=== PATIENT | male | born 1960 | race African-American/Black ===

== ENCOUNTER 2017-04-26 13:55 | Inpatient (IN) | payer OTHER ==
[2017-04-26 15:25] VITALS: BMI 35.2
--- NOTE | 2017-04-26 17:16 | HP ---
Admission [facility] Chief Complaint: "I am here because of my [place]." Patient is here for Rehab for Cocaine. Allergies/Adverse Reactions: Allergies Allergy/AdvReac Type Severity Reaction Status Date / Time chlorpromazine HCl AdvReac Severe stiffness Verified 04/26/17 16:55 [From Thorazine] haloperidol [From Haldol] AdvReac Severe stiffness Verified 04/26/17 16:55 History of Present Illness: Patient is a 56 YO male here for Rehab for Cocaine use. Patient had 1 previous Rehab admission at [facility] approx. 9 years ago. Exam Limitations: No Limitations - Ebola screening Have you traveled outside of the country in the last 21 days: No Have you had contact with anyone from an Ebola affected area: No Have you been sick,other than usual withdrawal symptoms: No Do you have a fever: No - Review of Systems Constitutional: Diaphoresis, Malaise EENT: reports: No Symptoms Reported Respiratory: reports: No Symptoms reported Cardiac: reports: No Symptoms Reported GI: reports: Indigestion (Gas, Heartburn.) : reports: No Symptoms Reported Musculoskeletal: reports: Back Pain, Neck Pain Integumentary: reports: No Symptoms Reported Neuro: reports: No Symptoms reported Endocrine: reports: No Symptoms Reported Hematology: reports: No Symptoms Reported Psychiatric: reports: Judgement Intact, Mood/Affect Appropiate, Orientated x3, Anxious (History of Panic Attacks (None Recent).) Other Systems: Reviewed and Negative Patient History - Patient Medical History Hx Anemia: No Hx Asthma: Yes (Uses albuterol Inhaler.) Hx Chronic Obstructive Pulmonary Disease (COPD): No Hx Cancer: No Hx Cardiac Disorders: Yes (HTN) Hx Congestive Heart Failure: No Hx Hypertension: Yes (On meds.) Hx Hypercholesterolemia: No Hx Pacemaker: No HX Cerebrovascular Accident: No Hx Seizures: No Hx Dementia: No Hx Diabetes: No Hx Gastrointestinal Disorders: Yes (GERD) Hx Liver Disease: No Hx Genitourinary Disorders: No Hx Sexually Transmitted Disorders: No Hx Renal Disease (ESRD): No Hx Thyroid Disease: No Hx Human Immunodeficiency Virus (HIV): No (Last Tested: 02/2017: NEGATIVE.) Hx Hepatitis C: No (Last Tested: 2016: NEGATIVE.) Hx Depression: No Hx Suicide Attempt: No (PATIENT DENIES CURRENT SI / HI.) Hx Bipolar Disorder: Yes (on serouel and trazadone) Hx Schizophrenia: No Other Medical History: DENIES. - Patient Surgical History Past Surgical History: Yes Hx Neurologic Surgery: No Hx Cataract Extraction: No Hx Cardiac Surgery: Yes (Stent placement-2006) Hx Lung Surgery: No Hx Breast Surgery: No Hx Breast Biopsy: No Hx Abdominal Surgery: No Hx Appendectomy: No Hx Cholecystectomy: No Hx Genitourinary Surgery: No Hx Section: No Hx Orthopedic Surgery: Yes (fx left knee at age of 17) Anesthesia Reaction: No - PPD History Previous Implant?: Yes Documented Results: Negative w/o proof Date: 03/14/12 PPD to be Administered?: Yes - Reproductive History Patient is a Female of Child Bearing Age (11 -55 yrs old): No (PATIENT IS MALE.) - Smoking Cessation Smoking history: Current some day smoker Have you smoked in the past 12 months: Yes Aproximately how many cigarettes per day: 4 Cigars Per Day: 0 Hx Chewing Tobacco Use: No Initiated information on smoking cessation: Yes 'Breaking Loose' booklet given: 04/26/17 (GIVEN ON UNIT.) - Substance & Tx. History Hx Alcohol Use: No Hx Substance Use: Yes Substance Use Type: Cocaine Hx Substance Use Treatment: Yes (1 Previous Rehab admission at [facility] approx. 9 years ago.) - Substances Abused Cocaine Route: Smoking Frequency: 1-2 times per week Amount used: $ 2000 Age of first use: 53 Date of Last Use: 04/12/17 Family Disease History - Family Disease History Family History: Denies Admission Physical Exam BHS - Vital Signs Vital Signs: Vital Signs - 24 hr 04/26/17 15:22 Temperature 97.4 F L Pulse Rate 74 Respiratory 20 Rate Blood Pressure 187/105 - Physical General Appearance: Yes: No Apparent Distress, Nourished, Appropriately Dressed HEENTM: Yes: Hearing grossly Normal, Normocephalic, Normal Voice, SHEILA, Pharynx Normal Respiratory: Yes: Chest Non-Tender, Lungs Clear, No Respiratory Distress, No Accessory Muscle Use Neck: Yes: No masses,lesions,Nodules, Supple, Trachea in good position Breast: Yes: Breast Exam Deferred Cardiology: Yes: Regular Rhythm, Regular Rate, S1, S2 Abdominal: Yes: Normal Bowel Sounds, Non Tender, Soft, Protuberent Genitourinary: Yes: Within Normal Limits Back: Yes: Decreased Range of Motion Musculoskeletal: Yes: Gait Steady, Back pain Extremities: Yes: Normal Range of Motion, Non-Tender Neurological: Yes: Fully Oriented, Alert, Normal Mood/Affect, Normal Response Integumentary: Yes: Normal Color, Dry, Warm Lymphatic: Yes: Within Normal Limits - Diagnostic (1) Bipolar disorder Current Visit: Yes Status: Chronic (2) Cocaine dependence Current Visit: Yes Status: Chronic (3) Essential hypertension Current Visit: Yes Status: Chronic (4) Nicotine dependence Current Visit: Yes Status: Chronic (5) History of heart artery stent Current Visit: Yes Status: Chronic Cleared for Admission [facility] - Detox or Rehab Claeared for Rehab Admission: Yes [facility] Breath Alcohol Content Breath Alcohol Content: 0 Urine Drug Screen - Results Drug Screen Negative: Yes Inpatient Rehab Admission - Initial Determination Are CD services needed?: Yes Free of communicable disease: Yes Not in need of hospitalization: Yes - Rehab Admission Criteria Previous failed treatment: Yes Comorbidities: Yes Patient is meeting Inpatient Rehab admission criteria:: Yes
[2017-04-26] MEDS ORDERED: guaiFENesin/D-METHORPHAN HB 10 ML UNIT-DOSE CUPS PO PRN (17:57)
[2017-04-26] MEDS ORDERED: MAGNESIUM HYDROX 2400MG/30ML ORAL SUSPENSION 30 ML CUP PO PRN (17:57)
[2017-04-26] MEDS ORDERED: LOPERAMIDE HCL 2 MG CAPSULE PO PRN (17:57)
[2017-04-26] MEDS ORDERED: P-EPHED 60MG/TRIPROLIDI 2.5MG TABLET PO PRN (17:57)
[2017-04-26] MEDS ORDERED: NICOTINE POLACRILEX 2 MG GUM BUC PRN (17:57)
[2017-04-26] MEDS ORDERED: MAGNESIUM CITRATE 300 ML BOTTLE PO PRN (17:57)
[2017-04-26] MEDS ORDERED: hydrOXYzine PAMOATE 50 MG CAPSULE (FP) PO PRN (17:57)
[2017-04-26] MEDS ORDERED: ALBUTEROL SO4 18 GM HFA INHALER IH PRN (18:10)
[2017-04-26] MEDS: LISINOPRIL 20 MG TABLET (FP) PO SCH (19:41)
[2017-04-26] MEDS: amLODIPine BESYLATE 5 MG TABLET (FP) PO SCH (19:41)
[2017-04-26] MEDS ORDERED: TUBERCULIN PPD 5 TU/0.1ML VIAL ID ONE (19:41)
[2017-04-26] MEDS: NICOTINE 14 MG/24 HOURS TOPICAL PATCH TD SCH (19:46)
[2017-04-26] MEDS ORDERED: diphenhydrAMINE HCL 50 MG CAPSULE PO PRN (22:00)
[2017-04-26 23:33] LABS: URINE APPEARANCE CLEAR; URINE BILIRUBIN NEGATIVE (NEGATIVE); URINE BLOOD NEGATIVE (NEGATIVE); URINE COLOR YELLOW; URINE GLUCOSE (UA) NEGATIVE (NEGATIVE); URINE KETONE NEGATIVE (NEGATIVE); URINE LEUK ESTERASE NEGATIVE (NEGATIVE); URINE NITRITE NEGATIVE (NEGATIVE); URINE PROTEIN NEGATIVE (NEGATIVE); URINE UROBILINOGEN NEGATIVE mg/dL (0.2-1.0)
[2017-04-26] MEDS: THIAMINE HCL 100 MG TABLET (FP) PO SCH (23:50)
[2017-04-27] MEDS: PRENATAL VITAMINS W/ FOLIC ACID TABLET (FP) PO SCH (09:28)
[2017-04-27] MEDS: PANTOPRAZOLE 40 MG TABLET (FP) PO SCH (09:28)
[2017-04-27] MEDS: NICOTINE 14 MG/24 HOURS TOPICAL PATCH TD SCH (09:28)
[2017-04-27] MEDS: HYDROCHLOROTHIAZIDE 25 MG TABLET (FP) PO SCH (09:28)
[2017-04-27] MEDS: LISINOPRIL 20 MG TABLET (FP) PO SCH (09:28)
[2017-04-27] MEDS: ASPIRIN 81 MG CHEWABLE TABLETS PO SCH (09:28)
[2017-04-27] MEDS: amLODIPine BESYLATE 5 MG TABLET (FP) PO SCH (09:28)
[2017-04-27 10:28] LABS: ALBUMIN 3.1 g/dl (3.4-5.0); ANION GAP 4 (8-16); CALCIUM 8.4 mg/dL (8.5-10.1); CO2 29 mmol/L (21-32); GLUCOSE,RANDOM 98 mg/dL (74-106)
[2017-04-27 10:32] LABS: ALK PHOS 89 U/L (45-117); BILIRUBIN,TOTAL 0.5 mg/dL (0.2-1.0); CREATININE 0.8 mg/dL (0.7-1.3); SGOT/AST 17 U/L (15-37); SGPT/ALT 25 U/L (12-78)
--- NOTE | 2017-04-27 13:04 | EKG ---
Test Reason : Blood Pressure : / mmHG Vent. Rate : 064 BPM Atrial Rate : 064 BPM P-R Int : 170 ms QRS Dur : 084 ms QT Int : 412 ms P-R-T Axes : 038 026 034 degrees QTc Int : 425 ms SINUS RHYTHM WITH MARKED SINUS ARRHYTHMIA SEPTAL INFARCT , AGE UNDETERMINED ABNORMAL ECG NO PREVIOUS ECGS AVAILABLE Confirmed by KOMAL JOY MD ([id number]) on 04/27/2017 1:04:36 PM Referred By: Confirmed By:KOMAL JOY MD
--- NOTE | 2017-04-27 13:04 | EKG ---
Test Reason : Blood Pressure : / mmHG Vent. Rate : 078 BPM Atrial Rate : 078 BPM P-R Int : 172 ms QRS Dur : 080 ms QT Int : 396 ms P-R-T Axes : 032 027 038 degrees QTc Int : 451 ms SINUS RHYTHM WITH MARKED SINUS ARRHYTHMIA MINIMAL VOLTAGE CRITERIA FOR LVH, MAY BE NORMAL VARIANT NON-SPECIFIC INTRA-VENTRICULAR CONDUCTION DELAY ABNORMAL ECG WHEN COMPARED WITH ECG OF 27-APR-2017 05:55, NO SIGNIFICANT CHANGE WAS FOUND Confirmed by KOMAL JOY MD ([id number]) on 04/27/2017 1:04:10 PM Referred By: Confirmed By:KOMAL JOY MD
[2017-04-27 20:12] LABS: MEAN CELL VOLUME 88.4 fl (80-96); PLATELET COUNT 179 K/MM3 (134-434); WHITE BLOOD COUNT 3.3 K/mm3 (4.0-10.0)
[2017-04-27] MEDS: THIAMINE HCL 100 MG TABLET (FP) PO SCH (21:16)
[2017-04-27] MEDS: diphenhydrAMINE HCL 50 MG CAPSULE PO PRN (21:19)
[2017-04-27] MEDS: MENTHOL/PHENOL 1 EACH UD MM PRN (21:19)
[2017-04-28] MEDS: ASPIRIN 81 MG CHEWABLE TABLETS PO SCH (09:39)
[2017-04-28] MEDS: PRENATAL VITAMINS W/ FOLIC ACID TABLET (FP) PO SCH (09:39)
[2017-04-28] MEDS: HYDROCHLOROTHIAZIDE 25 MG TABLET (FP) PO SCH (09:39)
[2017-04-28] MEDS: PANTOPRAZOLE 40 MG TABLET (FP) PO SCH (09:39)
[2017-04-28] MEDS: LISINOPRIL 20 MG TABLET (FP) PO SCH (09:39)
[2017-04-28] MEDS: amLODIPine BESYLATE 5 MG TABLET (FP) PO SCH (09:39)
[2017-04-28] MEDS: NICOTINE 14 MG/24 HOURS TOPICAL PATCH TD SCH (09:40)
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
[2017-04-28] MEDS ORDERED: PT OWN MED DRAWER 7, Y5N ONE (19:26)
[2017-04-28] MEDS: THIAMINE HCL 100 MG TABLET (FP) PO SCH (21:12)
[2017-04-28] MEDS: MIRTAZAPINE 30 MG TABLET (FP) PO SCH (21:13)
[2017-04-28] MEDS: BENZTROPINE MESYLATE 1 MG TABLET (FP) PO SCH (21:13)
[2017-04-28] MEDS: diphenhydrAMINE HCL 50 MG CAPSULE PO PRN (21:13)
[2017-04-28] MEDS: risperiDONE 2 MG TABLET PO SCH (21:14)
[2017-04-29] MEDS: HYDROCHLOROTHIAZIDE 25 MG TABLET (FP) PO SCH (10:17)
[2017-04-29] MEDS: PRENATAL VITAMINS W/ FOLIC ACID TABLET (FP) PO SCH (10:17)
[2017-04-29] MEDS: PANTOPRAZOLE 40 MG TABLET (FP) PO SCH (10:17)
[2017-04-29] MEDS: BENZTROPINE MESYLATE 1 MG TABLET (FP) PO SCH ×2 (10:17→21:08)
[2017-04-29] MEDS: ASPIRIN 81 MG CHEWABLE TABLETS PO SCH (10:17)
[2017-04-29] MEDS: LISINOPRIL 20 MG TABLET (FP) PO SCH (10:17)
[2017-04-29] MEDS: amLODIPine BESYLATE 5 MG TABLET (FP) PO SCH (10:17)
[2017-04-29] MEDS: NICOTINE 14 MG/24 HOURS TOPICAL PATCH TD SCH (10:18)
[2017-04-29] MEDS: MAG HYDROX/AL HYDROX/SIMETH 30 ML UNIT-DOSE CUP PO PRN (12:23)
[2017-04-29] MEDS: IBUPROFEN 400 MG TABLET (FP) PO PRN ×2 (15:17→23:15)
[2017-04-29] MEDS: ACETAMINOPHEN 325 MG TABLET (FP) PO PRN (19:38)
[2017-04-29] MEDS: diphenhydrAMINE HCL 50 MG CAPSULE PO PRN (21:08)
[2017-04-29] MEDS: MIRTAZAPINE 30 MG TABLET (FP) PO SCH (21:08)
[2017-04-29] MEDS: risperiDONE 2 MG TABLET PO SCH (21:08)
[2017-04-29] MEDS: THIAMINE HCL 100 MG TABLET (FP) PO SCH (21:08)
[2017-04-30] MEDS: PANTOPRAZOLE 40 MG TABLET (FP) PO SCH (09:48)
[2017-04-30] MEDS: PRENATAL VITAMINS W/ FOLIC ACID TABLET (FP) PO SCH (09:48)
[2017-04-30] MEDS: HYDROCHLOROTHIAZIDE 25 MG TABLET (FP) PO SCH (09:48)
[2017-04-30] MEDS: ASPIRIN 81 MG CHEWABLE TABLETS PO SCH (09:48)
[2017-04-30] MEDS: LISINOPRIL 20 MG TABLET (FP) PO SCH (09:48)
[2017-04-30] MEDS: BENZTROPINE MESYLATE 1 MG TABLET (FP) PO SCH ×2 (09:48→21:26)
[2017-04-30] MEDS: amLODIPine BESYLATE 5 MG TABLET (FP) PO SCH (09:50)
[2017-04-30] MEDS: IBUPROFEN 400 MG TABLET (FP) PO PRN ×2 (10:25→21:28)
[2017-04-30] MEDS: NICOTINE 14 MG/24 HOURS TOPICAL PATCH TD SCH (10:39)
[2017-04-30] MEDS: THIAMINE HCL 100 MG TABLET (FP) PO SCH (21:25)
[2017-04-30] MEDS: diphenhydrAMINE HCL 50 MG CAPSULE PO PRN (21:25)
[2017-04-30] MEDS: risperiDONE 2 MG TABLET PO SCH (21:26)
[2017-04-30] MEDS: MIRTAZAPINE 30 MG TABLET (FP) PO SCH (21:26)
[2017-05-01] MEDS: PRENATAL VITAMINS W/ FOLIC ACID TABLET (FP) PO SCH (09:36)
[2017-05-01] MEDS: LISINOPRIL 20 MG TABLET (FP) PO SCH (09:36)
[2017-05-01] MEDS: amLODIPine BESYLATE 5 MG TABLET (FP) PO SCH (09:36)
[2017-05-01] MEDS: HYDROCHLOROTHIAZIDE 25 MG TABLET (FP) PO SCH (09:36)
[2017-05-01] MEDS: PANTOPRAZOLE 40 MG TABLET (FP) PO SCH (09:36)
[2017-05-01] MEDS: ASPIRIN 81 MG CHEWABLE TABLETS PO SCH (09:36)
[2017-05-01] MEDS: BENZTROPINE MESYLATE 1 MG TABLET (FP) PO SCH ×2 (09:36→21:19)
[2017-05-01] MEDS: IBUPROFEN 400 MG TABLET (FP) PO PRN ×2 (09:37→20:05)
[2017-05-01] MEDS: NICOTINE 14 MG/24 HOURS TOPICAL PATCH TD SCH (09:39)
[2017-05-01] MEDS: risperiDONE 2 MG TABLET PO SCH (21:19)
[2017-05-01] MEDS: THIAMINE HCL 100 MG TABLET (FP) PO SCH (21:19)
[2017-05-01] MEDS: diphenhydrAMINE HCL 50 MG CAPSULE PO PRN (21:19)
[2017-05-01] MEDS: ACETAMINOPHEN 325 MG TABLET (FP) PO PRN (21:20)
[2017-05-01] MEDS: MIRTAZAPINE 30 MG TABLET (FP) PO SCH (21:22)
[2017-05-02] MEDS: HYDROCHLOROTHIAZIDE 25 MG TABLET (FP) PO SCH (09:23)
[2017-05-02] MEDS: amLODIPine BESYLATE 5 MG TABLET (FP) PO SCH (09:23)
[2017-05-02] MEDS: LISINOPRIL 20 MG TABLET (FP) PO SCH (09:23)
[2017-05-02] MEDS: BENZTROPINE MESYLATE 1 MG TABLET (FP) PO SCH ×2 (09:23→21:23)
[2017-05-02] MEDS: IBUPROFEN 400 MG TABLET (FP) PO PRN (09:23)
[2017-05-02] MEDS: PRENATAL VITAMINS W/ FOLIC ACID TABLET (FP) PO SCH (09:23)
[2017-05-02] MEDS: ASPIRIN 81 MG CHEWABLE TABLETS PO SCH (09:23)
[2017-05-02] MEDS: NICOTINE 14 MG/24 HOURS TOPICAL PATCH TD SCH (09:25)
[2017-05-02] MEDS: PANTOPRAZOLE 40 MG TABLET (FP) PO SCH (10:40)
[2017-05-02] MEDS ORDERED: ALBUTEROL SO4 2.5/IPRATROPIUM 0.5 INH SOL 3 ML VIAL.NEB. NEB ONE (15:52)
[2017-05-02] MEDS ORDERED: LIDOCAINE HCL 4% TOPICAL SOLN (50 ML/BOTTLE) MM ONE (15:54)
--- NOTE | 2017-05-02 15:58 | PN ---
[facility] Progress Note (SOAP) Subjective: c/o wheezing and tooth pain because filling fell out, no infection or pus reported Objective: 05/02/17 15:57 Vital Signs - 24 hr 05/02/17 05/02/17 05/02/17 00:30 03:30 06:53 Temperature 97.5 F L Pulse Rate 72 Respiratory 18 18 18 Rate Blood Pressure 162/97 05/02/17 05/02/17 07:32 10:00 Temperature Pulse Rate 70 79 Respiratory 18 Rate Blood Pressure 144/93 143/84 Laboratory Tests 04/26/17 04/27/17 04/27/17 23:00 08:00 08:00 WBC 3.3 L RBC 4.20 Hgb 12.6 D Hct 37.1 MCV 88.4 MCH 30.0 MCHC 34.0 RDW 17.0 H Plt Count 179 MPV 9.0 Sodium 139 Potassium 3.8 Chloride 106 Carbon Dioxide 29 Anion Gap 4 L BUN 13 Creatinine 0.8 Creat Clearance w eGFR > 60 Random Glucose 98 Calcium 8.4 L Total Bilirubin 0.5 D AST 17 ALT 25 Alkaline Phosphatase 89 Total Protein 6.0 L Albumin 3.1 L Urine Color Yellow Urine Appearance Clear Urine pH 6.0 Ur Specific [place] 1.020 Urine Protein Negative Urine Glucose (UA) Negative Urine Ketones Negative Urine Blood Negative Urine Nitrite Negative Urine Bilirubin Negative Urine Urobilinogen Negative RPR Titer 04/27/17 08:00 WBC RBC Hgb Hct MCV MCH MCHC RDW Plt Count MPV Sodium Potassium Chloride Carbon Dioxide Anion Gap BUN Creatinine Creat Clearance w eGFR Random Glucose Calcium Total Bilirubin AST ALT Alkaline Phosphatase Total Protein Albumin Urine Color Urine Appearance Urine pH Ur Specific [place] Urine Protein Urine Glucose (UA) Urine Ketones Urine Blood Urine Nitrite Urine Bilirubin Urine Urobilinogen RPR Titer Nonreactive Assessment: 05/02/17 15:57 acute asthma, toothache Plan: albhterol inhaler, duoneb scheduled,naprosyn scheduled - patient may refuse
[2017-05-02] MEDS ORDERED: LIDOCAINE VISCOUS 2% ORAL/TOP 20 ML UNIT-DOSE CUP MM ONE (17:15)
[2017-05-02] MEDS: ALBUTEROL SO4 2.5/IPRATROPIUM 0.5 INH SOL 3 ML VIAL.NEB. NEB SCH ×2 (18:21→23:32)
[2017-05-02] MEDS: THIAMINE HCL 100 MG TABLET (FP) PO SCH (21:21)
[2017-05-02] MEDS: AMMONIUM LACTATE 12% LOTION 225 GM BOTTLE TP PRN (21:21)
[2017-05-02] MEDS: MIRTAZAPINE 30 MG TABLET (FP) PO SCH (21:23)
[2017-05-02] MEDS: NAPROXEN 500 MG TABLET (FP) PO SCH (21:23)
[2017-05-02] MEDS: risperiDONE 2 MG TABLET PO SCH (21:23)
[2017-05-02] MEDS: diphenhydrAMINE HCL 50 MG CAPSULE PO PRN (21:25)
[2017-05-03] MEDS: ALBUTEROL SO4 2.5/IPRATROPIUM 0.5 INH SOL 3 ML VIAL.NEB. NEB SCH ×3 (06:21→16:59)
[2017-05-03] MEDS: NAPROXEN 500 MG TABLET (FP) PO SCH ×2 (09:48→21:49)
[2017-05-03] MEDS: ASPIRIN 81 MG CHEWABLE TABLETS PO SCH (09:49)
[2017-05-03] MEDS: LISINOPRIL 20 MG TABLET (FP) PO SCH (09:49)
[2017-05-03] MEDS: PANTOPRAZOLE 40 MG TABLET (FP) PO SCH (09:49)
[2017-05-03] MEDS: PRENATAL VITAMINS W/ FOLIC ACID TABLET (FP) PO SCH (09:49)
[2017-05-03] MEDS: BENZTROPINE MESYLATE 1 MG TABLET (FP) PO SCH ×2 (09:49→21:49)
[2017-05-03] MEDS: HYDROCHLOROTHIAZIDE 25 MG TABLET (FP) PO SCH (09:49)
[2017-05-03] MEDS: amLODIPine BESYLATE 5 MG TABLET (FP) PO SCH (09:49)
[2017-05-03] MEDS: NICOTINE 14 MG/24 HOURS TOPICAL PATCH TD SCH (10:22)
[2017-05-03] MEDS ORDERED: COLLOIDAL OATMEAL 1 BAR EACH TP PRN (15:16)
[2017-05-03] MEDS: COLLOIDAL OATMEAL 1 BAR EACH TP PRN (21:48)
[2017-05-03] MEDS: ACETAMINOPHEN 325 MG TABLET (FP) PO PRN (21:48)
[2017-05-03] MEDS: MIRTAZAPINE 30 MG TABLET (FP) PO SCH (21:49)
[2017-05-03] MEDS: diphenhydrAMINE HCL 50 MG CAPSULE PO PRN (21:49)
[2017-05-03] MEDS: THIAMINE HCL 100 MG TABLET (FP) PO SCH (21:49)
[2017-05-03] MEDS: risperiDONE 2 MG TABLET PO SCH (21:50)
[2017-05-04] MEDS: ALBUTEROL SO4 2.5/IPRATROPIUM 0.5 INH SOL 3 ML VIAL.NEB. NEB SCH ×3 (00:07→18:00)
[2017-05-04] MEDS: LISINOPRIL 20 MG TABLET (FP) PO SCH (09:35)
[2017-05-04] MEDS: amLODIPine BESYLATE 5 MG TABLET (FP) PO SCH (09:35)
[2017-05-04] MEDS: PRENATAL VITAMINS W/ FOLIC ACID TABLET (FP) PO SCH (09:35)
[2017-05-04] MEDS: ASPIRIN 81 MG CHEWABLE TABLETS PO SCH (09:35)
[2017-05-04] MEDS: BENZTROPINE MESYLATE 1 MG TABLET (FP) PO SCH ×2 (09:35→21:22)
[2017-05-04] MEDS: HYDROCHLOROTHIAZIDE 25 MG TABLET (FP) PO SCH (09:35)
[2017-05-04] MEDS: NICOTINE 14 MG/24 HOURS TOPICAL PATCH TD SCH (09:36)
[2017-05-04] MEDS: PANTOPRAZOLE 40 MG TABLET (FP) PO SCH (09:36)
[2017-05-04] MEDS: NAPROXEN 500 MG TABLET (FP) PO SCH ×2 (09:36→21:23)
[2017-05-04] MEDS: MAG HYDROX/AL HYDROX/SIMETH 30 ML UNIT-DOSE CUP PO PRN (12:16)
[2017-05-04] MEDS: MIRTAZAPINE 30 MG TABLET (FP) PO SCH (21:22)
[2017-05-04] MEDS: THIAMINE HCL 100 MG TABLET (FP) PO SCH (21:22)
[2017-05-04] MEDS: risperiDONE 2 MG TABLET PO SCH (21:22)
[2017-05-04] MEDS: diphenhydrAMINE HCL 50 MG CAPSULE PO PRN (21:23)
[2017-05-05] MEDS: ASPIRIN 81 MG CHEWABLE TABLETS PO SCH (09:27)
[2017-05-05] MEDS: PANTOPRAZOLE 40 MG TABLET (FP) PO SCH (09:27)
[2017-05-05] MEDS: PRENATAL VITAMINS W/ FOLIC ACID TABLET (FP) PO SCH (09:28)
[2017-05-05] MEDS: NAPROXEN 500 MG TABLET (FP) PO SCH ×2 (09:28→21:41)
[2017-05-05] MEDS: NICOTINE 14 MG/24 HOURS TOPICAL PATCH TD SCH (09:28)
[2017-05-05] MEDS: HYDROCHLOROTHIAZIDE 25 MG TABLET (FP) PO SCH (09:28)
[2017-05-05] MEDS: BENZTROPINE MESYLATE 1 MG TABLET (FP) PO SCH ×2 (09:28→21:41)
[2017-05-05] MEDS: LISINOPRIL 20 MG TABLET (FP) PO SCH (09:28)
[2017-05-05] MEDS: amLODIPine BESYLATE 5 MG TABLET (FP) PO SCH (09:28)
[2017-05-05] MEDS: ALBUTEROL SO4 2.5/IPRATROPIUM 0.5 INH SOL 3 ML VIAL.NEB. NEB SCH ×3 (12:43→18:41)
[2017-05-05] MEDS: MENTHOL/PHENOL 1 EACH UD MM PRN (14:49)
[2017-05-05] MEDS: THIAMINE HCL 100 MG TABLET (FP) PO SCH (21:41)
[2017-05-05] MEDS: MIRTAZAPINE 30 MG TABLET (FP) PO SCH (21:41)
[2017-05-05] MEDS: risperiDONE 2 MG TABLET PO SCH (21:41)
[2017-05-05] MEDS: diphenhydrAMINE HCL 50 MG CAPSULE PO PRN (21:42)
[2017-05-06] MEDS: ACETAMINOPHEN 325 MG TABLET (FP) PO PRN (07:43)
[2017-05-06] MEDS: NAPROXEN 500 MG TABLET (FP) PO SCH ×2 (09:33→21:22)
[2017-05-06] MEDS: ASPIRIN 81 MG CHEWABLE TABLETS PO SCH (09:33)
[2017-05-06] MEDS: PRENATAL VITAMINS W/ FOLIC ACID TABLET (FP) PO SCH (09:33)
[2017-05-06] MEDS: amLODIPine BESYLATE 5 MG TABLET (FP) PO SCH (09:33)
[2017-05-06] MEDS: BENZTROPINE MESYLATE 1 MG TABLET (FP) PO SCH ×2 (09:33→21:22)
[2017-05-06] MEDS: PANTOPRAZOLE 40 MG TABLET (FP) PO SCH (09:33)
[2017-05-06] MEDS: HYDROCHLOROTHIAZIDE 25 MG TABLET (FP) PO SCH (09:33)
[2017-05-06] MEDS: LISINOPRIL 20 MG TABLET (FP) PO SCH (09:33)
[2017-05-06] MEDS: NICOTINE 14 MG/24 HOURS TOPICAL PATCH TD SCH (09:35)
[2017-05-06] MEDS: ALBUTEROL SO4 2.5/IPRATROPIUM 0.5 INH SOL 3 ML VIAL.NEB. NEB SCH ×3 (11:58→18:30)
[2017-05-06] MEDS: THIAMINE HCL 100 MG TABLET (FP) PO SCH (21:22)
[2017-05-06] MEDS: risperiDONE 2 MG TABLET PO SCH (21:22)
[2017-05-06] MEDS: diphenhydrAMINE HCL 50 MG CAPSULE PO PRN (21:22)
[2017-05-06] MEDS: MIRTAZAPINE 30 MG TABLET (FP) PO SCH (21:22)
[2017-05-06] MEDS: AMMONIUM LACTATE 12% LOTION 225 GM BOTTLE TP PRN (21:24)
[2017-05-06] MEDS: COLLOIDAL OATMEAL 1 BAR EACH TP PRN (21:25)
[2017-05-07] MEDS: NICOTINE 14 MG/24 HOURS TOPICAL PATCH TD SCH (09:43)
[2017-05-07] MEDS: PRENATAL VITAMINS W/ FOLIC ACID TABLET (FP) PO SCH (09:43)
[2017-05-07] MEDS: HYDROCHLOROTHIAZIDE 25 MG TABLET (FP) PO SCH (09:43)
[2017-05-07] MEDS: PANTOPRAZOLE 40 MG TABLET (FP) PO SCH (09:43)
[2017-05-07] MEDS: NAPROXEN 500 MG TABLET (FP) PO SCH ×2 (09:43→22:29)
[2017-05-07] MEDS: LISINOPRIL 20 MG TABLET (FP) PO SCH (09:43)
[2017-05-07] MEDS: BENZTROPINE MESYLATE 1 MG TABLET (FP) PO SCH ×2 (09:43→22:29)
[2017-05-07] MEDS: amLODIPine BESYLATE 5 MG TABLET (FP) PO SCH (09:43)
[2017-05-07] MEDS: ASPIRIN 81 MG CHEWABLE TABLETS PO SCH (09:43)
[2017-05-07] MEDS: ALBUTEROL SO4 2.5/IPRATROPIUM 0.5 INH SOL 3 ML VIAL.NEB. NEB SCH (13:00)
[2017-05-07] MEDS: risperiDONE 2 MG TABLET PO SCH (22:29)
[2017-05-07] MEDS: MIRTAZAPINE 30 MG TABLET (FP) PO SCH (22:29)
[2017-05-07] MEDS: THIAMINE HCL 100 MG TABLET (FP) PO SCH (22:29)
[2017-05-08] MEDS: amLODIPine BESYLATE 5 MG TABLET (FP) PO SCH (09:38)
[2017-05-08] MEDS: PRENATAL VITAMINS W/ FOLIC ACID TABLET (FP) PO SCH (09:38)
[2017-05-08] MEDS: ASPIRIN 81 MG CHEWABLE TABLETS PO SCH (09:38)
[2017-05-08] MEDS: BENZTROPINE MESYLATE 1 MG TABLET (FP) PO SCH ×2 (09:38→21:15)
[2017-05-08] MEDS: LISINOPRIL 20 MG TABLET (FP) PO SCH (09:38)
[2017-05-08] MEDS: PANTOPRAZOLE 40 MG TABLET (FP) PO SCH (09:38)
[2017-05-08] MEDS: HYDROCHLOROTHIAZIDE 25 MG TABLET (FP) PO SCH (09:39)
[2017-05-08] MEDS: NAPROXEN 500 MG TABLET (FP) PO SCH ×2 (09:40→21:17)
[2017-05-08] MEDS: NICOTINE 14 MG/24 HOURS TOPICAL PATCH TD SCH (09:40)
[2017-05-08] MEDS: ALBUTEROL SO4 2.5/IPRATROPIUM 0.5 INH SOL 3 ML VIAL.NEB. NEB SCH ×2 (11:02→21:17)
[2017-05-08] MEDS: ALBUTEROL SO4 18 GM HFA INHALER IH PRN (15:59)
[2017-05-08] MEDS: AMMONIUM LACTATE 12% LOTION 225 GM BOTTLE TP PRN (21:14)
[2017-05-08] MEDS: THIAMINE HCL 100 MG TABLET (FP) PO SCH (21:15)
[2017-05-08] MEDS: risperiDONE 2 MG TABLET PO SCH (21:15)
[2017-05-08] MEDS: MIRTAZAPINE 30 MG TABLET (FP) PO SCH (21:16)
[2017-05-08] MEDS: diphenhydrAMINE HCL 50 MG CAPSULE PO PRN (21:16)
[2017-05-09] MEDS: NAPROXEN 500 MG TABLET (FP) PO SCH ×2 (09:40→21:17)
[2017-05-09] MEDS: PRENATAL VITAMINS W/ FOLIC ACID TABLET (FP) PO SCH (09:40)
[2017-05-09] MEDS: HYDROCHLOROTHIAZIDE 25 MG TABLET (FP) PO SCH (09:40)
[2017-05-09] MEDS: BENZTROPINE MESYLATE 1 MG TABLET (FP) PO SCH ×2 (09:40→21:17)
[2017-05-09] MEDS: ASPIRIN 81 MG CHEWABLE TABLETS PO SCH (09:40)
[2017-05-09] MEDS: amLODIPine BESYLATE 5 MG TABLET (FP) PO SCH (09:40)
[2017-05-09] MEDS: LISINOPRIL 20 MG TABLET (FP) PO SCH (09:40)
[2017-05-09] MEDS: PANTOPRAZOLE 40 MG TABLET (FP) PO SCH (09:40)
[2017-05-09] MEDS: COLLOIDAL OATMEAL 1 BAR EACH TP PRN (09:42)
[2017-05-09] MEDS: NICOTINE 14 MG/24 HOURS TOPICAL PATCH TD SCH (09:43)
[2017-05-09] MEDS: risperiDONE 2 MG TABLET PO SCH (21:17)
[2017-05-09] MEDS: THIAMINE HCL 100 MG TABLET (FP) PO SCH (21:17)
[2017-05-09] MEDS: MIRTAZAPINE 30 MG TABLET (FP) PO SCH (21:17)
[2017-05-09] MEDS: diphenhydrAMINE HCL 50 MG CAPSULE PO PRN (21:19)
[2017-05-10] MEDS: ALBUTEROL SO4 2.5/IPRATROPIUM 0.5 INH SOL 3 ML VIAL.NEB. NEB SCH ×4 (04:27→21:15)
[2017-05-10] MEDS: PRENATAL VITAMINS W/ FOLIC ACID TABLET (FP) PO SCH (09:35)
[2017-05-10] MEDS: amLODIPine BESYLATE 5 MG TABLET (FP) PO SCH (09:35)
[2017-05-10] MEDS: ASPIRIN 81 MG CHEWABLE TABLETS PO SCH (09:35)
[2017-05-10] MEDS: HYDROCHLOROTHIAZIDE 25 MG TABLET (FP) PO SCH (09:35)
[2017-05-10] MEDS: LISINOPRIL 20 MG TABLET (FP) PO SCH (09:35)
[2017-05-10] MEDS: PANTOPRAZOLE 40 MG TABLET (FP) PO SCH (09:35)
[2017-05-10] MEDS: NAPROXEN 500 MG TABLET (FP) PO SCH ×2 (09:35→21:14)
[2017-05-10] MEDS: BENZTROPINE MESYLATE 1 MG TABLET (FP) PO SCH ×2 (09:35→21:14)
[2017-05-10] MEDS: ALBUTEROL SO4 18 GM HFA INHALER IH PRN (09:36)
[2017-05-10] MEDS: NICOTINE 14 MG/24 HOURS TOPICAL PATCH TD SCH (10:19)
[2017-05-10] MEDS: THIAMINE HCL 100 MG TABLET (FP) PO SCH (21:14)
[2017-05-10] MEDS: diphenhydrAMINE HCL 50 MG CAPSULE PO PRN (21:14)
[2017-05-10] MEDS: risperiDONE 2 MG TABLET PO SCH (21:14)
[2017-05-10] MEDS: MIRTAZAPINE 30 MG TABLET (FP) PO SCH (21:14)
[2017-05-11] MEDS: ASPIRIN 81 MG CHEWABLE TABLETS PO SCH (09:22)
[2017-05-11] MEDS: PRENATAL VITAMINS W/ FOLIC ACID TABLET (FP) PO SCH (09:22)
[2017-05-11] MEDS: PANTOPRAZOLE 40 MG TABLET (FP) PO SCH (09:23)
[2017-05-11] MEDS: BENZTROPINE MESYLATE 1 MG TABLET (FP) PO SCH ×2 (09:23→21:33)
[2017-05-11] MEDS: NAPROXEN 500 MG TABLET (FP) PO SCH ×2 (09:23→21:33)
[2017-05-11] MEDS: HYDROCHLOROTHIAZIDE 25 MG TABLET (FP) PO SCH (09:23)
[2017-05-11] MEDS: amLODIPine BESYLATE 5 MG TABLET (FP) PO SCH (09:23)
[2017-05-11] MEDS: LISINOPRIL 20 MG TABLET (FP) PO SCH (09:23)
[2017-05-11] MEDS: ALBUTEROL SO4 18 GM HFA INHALER IH PRN (09:24)
[2017-05-11] MEDS: NICOTINE 14 MG/24 HOURS TOPICAL PATCH TD SCH (10:20)
[2017-05-11] MEDS: THIAMINE HCL 100 MG TABLET (FP) PO SCH (21:33)
[2017-05-11] MEDS: risperiDONE 2 MG TABLET PO SCH (21:33)
[2017-05-11] MEDS: MIRTAZAPINE 30 MG TABLET (FP) PO SCH (21:33)
[2017-05-11] MEDS: diphenhydrAMINE HCL 50 MG CAPSULE PO PRN (21:33)
[2017-05-11] MEDS: MAG HYDROX/AL HYDROX/SIMETH 30 ML UNIT-DOSE CUP PO PRN (23:32)
[2017-05-12] MEDS: ACETAMINOPHEN 325 MG TABLET (FP) PO PRN (07:19)
[2017-05-12] MEDS: MAG HYDROX/AL HYDROX/SIMETH 30 ML UNIT-DOSE CUP PO PRN (08:57)
[2017-05-12] MEDS: LISINOPRIL 20 MG TABLET (FP) PO SCH (09:36)
[2017-05-12] MEDS: PRENATAL VITAMINS W/ FOLIC ACID TABLET (FP) PO SCH (09:36)
[2017-05-12] MEDS: PANTOPRAZOLE 40 MG TABLET (FP) PO SCH (09:36)
[2017-05-12] MEDS: ASPIRIN 81 MG CHEWABLE TABLETS PO SCH (09:37)
[2017-05-12] MEDS: HYDROCHLOROTHIAZIDE 25 MG TABLET (FP) PO SCH (09:37)
[2017-05-12] MEDS: NAPROXEN 500 MG TABLET (FP) PO SCH ×2 (09:37→21:59)
[2017-05-12] MEDS: NICOTINE 14 MG/24 HOURS TOPICAL PATCH TD SCH (09:37)
[2017-05-12] MEDS: amLODIPine BESYLATE 5 MG TABLET (FP) PO SCH (09:37)
[2017-05-12] MEDS: BENZTROPINE MESYLATE 1 MG TABLET (FP) PO SCH ×2 (09:37→22:00)
[2017-05-12] MEDS: ALBUTEROL SO4 18 GM HFA INHALER IH PRN (09:38)
--- NOTE | 2017-05-12 10:30 | PN ---
[facility] Progress Note Note: patient has pain in the epigastric area earlier now subside stated feel like gas pain acid reflux on examination heent normal neck no jugular vein dilatation scar in mid chest heart normal heart sound lung clear,no wheezing abdomen soft,no distension no pain or tenderness bowel sound active no calf tenderness ekg nsr ,st in v2 no change comparing with 04/27/17 patient has history of mi with coronary by pass surgery 10 years ago impression epigastric pain gerd Vital Signs Temperature 98.4 F 05/12/17 06:50 Pulse Rate 84 05/12/17 06:50 Respiratory Rate 20 05/12/17 06:50 Blood Pressure 156/94 05/12/17 06:50 O2 Sat by Pulse Oximetry (%) patient is lying comfortable,no pain treatment protonix 40mg ponow then daily close monitoring
[2017-05-12] MEDS: ALBUTEROL SO4 2.5/IPRATROPIUM 0.5 INH SOL 3 ML VIAL.NEB. NEB SCH ×3 (15:19→23:47)
[2017-05-12] MEDS: THIAMINE HCL 100 MG TABLET (FP) PO SCH (21:59)
[2017-05-12] MEDS: MIRTAZAPINE 30 MG TABLET (FP) PO SCH (22:00)
[2017-05-12] MEDS: diphenhydrAMINE HCL 50 MG CAPSULE PO PRN (22:00)
[2017-05-12] MEDS: risperiDONE 2 MG TABLET PO SCH (22:00)
[2017-05-13] MEDS: LISINOPRIL 20 MG TABLET (FP) PO SCH (09:35)
[2017-05-13] MEDS: PANTOPRAZOLE 40 MG TABLET (FP) PO SCH (09:35)
[2017-05-13] MEDS: ASPIRIN 81 MG CHEWABLE TABLETS PO SCH (09:35)
[2017-05-13] MEDS: PRENATAL VITAMINS W/ FOLIC ACID TABLET (FP) PO SCH (09:35)
[2017-05-13] MEDS: NICOTINE 14 MG/24 HOURS TOPICAL PATCH TD SCH (09:36)
[2017-05-13] MEDS: BENZTROPINE MESYLATE 1 MG TABLET (FP) PO SCH ×2 (09:36→21:50)
[2017-05-13] MEDS: HYDROCHLOROTHIAZIDE 25 MG TABLET (FP) PO SCH (09:36)
[2017-05-13] MEDS: NAPROXEN 500 MG TABLET (FP) PO SCH ×2 (09:36→21:50)
[2017-05-13] MEDS: amLODIPine BESYLATE 5 MG TABLET (FP) PO SCH (09:36)
[2017-05-13] MEDS: diphenhydrAMINE HCL 50 MG CAPSULE PO PRN (21:50)
[2017-05-13] MEDS: THIAMINE HCL 100 MG TABLET (FP) PO SCH (21:50)
[2017-05-13] MEDS: risperiDONE 2 MG TABLET PO SCH (21:50)
[2017-05-13] MEDS: MIRTAZAPINE 30 MG TABLET (FP) PO SCH (21:50)
--- NOTE | 2017-05-14 07:24 | EKG ---
Test Reason : Blood Pressure : / mmHG Vent. Rate : 080 BPM Atrial Rate : 080 BPM P-R Int : 148 ms QRS Dur : 096 ms QT Int : 406 ms P-R-T Axes : 037 027 042 degrees QTc Int : 468 ms SINUS RHYTHM WITH MARKED SINUS ARRHYTHMIA CANNOT RULE OUT ANTERIOR INFARCT (CITED ON OR BEFORE 12-MAY-2017) ABNORMAL ECG WHEN COMPARED WITH ECG OF 27-APR-2017 09:13, NO SIGNIFICANT CHANGE WAS FOUND Confirmed by LEIF HUMPHREY MD ([id number]) on 05/14/2017 7:23:42 AM Referred By: Confirmed By:LEIF HUMPHREY MD
[2017-05-14] MEDS: ASPIRIN 81 MG CHEWABLE TABLETS PO SCH (09:39)
[2017-05-14] MEDS: PRENATAL VITAMINS W/ FOLIC ACID TABLET (FP) PO SCH (09:40)
[2017-05-14] MEDS: HYDROCHLOROTHIAZIDE 25 MG TABLET (FP) PO SCH (09:40)
[2017-05-14] MEDS: PANTOPRAZOLE 40 MG TABLET (FP) PO SCH (09:40)
[2017-05-14] MEDS: NAPROXEN 500 MG TABLET (FP) PO SCH ×2 (09:40→21:50)
[2017-05-14] MEDS: BENZTROPINE MESYLATE 1 MG TABLET (FP) PO SCH ×2 (09:40→21:50)
[2017-05-14] MEDS: amLODIPine BESYLATE 5 MG TABLET (FP) PO SCH (09:40)
[2017-05-14] MEDS: LISINOPRIL 20 MG TABLET (FP) PO SCH (09:40)
[2017-05-14] MEDS: AMMONIUM LACTATE 12% LOTION 225 GM BOTTLE TP PRN (09:41)
[2017-05-14] MEDS: NICOTINE 14 MG/24 HOURS TOPICAL PATCH TD SCH (09:41)
[2017-05-14] MEDS: COLLOIDAL OATMEAL 1 BAR EACH TP PRN (09:42)
[2017-05-14] MEDS: ALBUTEROL SO4 2.5/IPRATROPIUM 0.5 INH SOL 3 ML VIAL.NEB. NEB SCH (18:30)
[2017-05-14] MEDS: THIAMINE HCL 100 MG TABLET (FP) PO SCH (21:49)
[2017-05-14] MEDS: diphenhydrAMINE HCL 50 MG CAPSULE PO PRN (21:50)
[2017-05-14] MEDS: risperiDONE 2 MG TABLET PO SCH (21:50)
[2017-05-14] MEDS: MIRTAZAPINE 30 MG TABLET (FP) PO SCH (21:50)
[2017-05-15] MEDS: ALBUTEROL SO4 2.5/IPRATROPIUM 0.5 INH SOL 3 ML VIAL.NEB. NEB SCH ×2 (08:35→21:25)
[2017-05-15] MEDS: HYDROCHLOROTHIAZIDE 25 MG TABLET (FP) PO SCH (09:44)
[2017-05-15] MEDS: amLODIPine BESYLATE 5 MG TABLET (FP) PO SCH (09:44)
[2017-05-15] MEDS: ASPIRIN 81 MG CHEWABLE TABLETS PO SCH (09:44)
[2017-05-15] MEDS: LISINOPRIL 20 MG TABLET (FP) PO SCH (09:44)
[2017-05-15] MEDS: NICOTINE 14 MG/24 HOURS TOPICAL PATCH TD SCH (09:44)
[2017-05-15] MEDS: NAPROXEN 500 MG TABLET (FP) PO SCH ×2 (09:44→21:24)
[2017-05-15] MEDS: BENZTROPINE MESYLATE 1 MG TABLET (FP) PO SCH ×2 (09:44→21:25)
[2017-05-15] MEDS: PRENATAL VITAMINS W/ FOLIC ACID TABLET (FP) PO SCH (09:44)
[2017-05-15] MEDS: PANTOPRAZOLE 40 MG TABLET (FP) PO SCH (09:45)
[2017-05-15] MEDS: ALBUTEROL SO4 18 GM HFA INHALER IH PRN (09:46)
[2017-05-15] MEDS: risperiDONE 2 MG TABLET PO SCH (21:24)
[2017-05-15] MEDS: THIAMINE HCL 100 MG TABLET (FP) PO SCH (21:24)
[2017-05-15] MEDS: MIRTAZAPINE 30 MG TABLET (FP) PO SCH (21:24)
[2017-05-15] MEDS: diphenhydrAMINE HCL 50 MG CAPSULE PO PRN (21:25)
[2017-05-16] MEDS: ALBUTEROL SO4 2.5/IPRATROPIUM 0.5 INH SOL 3 ML VIAL.NEB. NEB SCH ×4 (00:17→07:14)
[2017-05-16] MEDS: NAPROXEN 500 MG TABLET (FP) PO SCH ×2 (09:53→21:22)
[2017-05-16] MEDS: BENZTROPINE MESYLATE 1 MG TABLET (FP) PO SCH ×2 (09:53→21:22)
[2017-05-16] MEDS: LISINOPRIL 20 MG TABLET (FP) PO SCH (09:53)
[2017-05-16] MEDS: HYDROCHLOROTHIAZIDE 25 MG TABLET (FP) PO SCH (09:53)
[2017-05-16] MEDS: ASPIRIN 81 MG CHEWABLE TABLETS PO SCH (09:53)
[2017-05-16] MEDS: amLODIPine BESYLATE 5 MG TABLET (FP) PO SCH (09:53)
[2017-05-16] MEDS: NICOTINE 14 MG/24 HOURS TOPICAL PATCH TD SCH (09:53)
[2017-05-16] MEDS: PANTOPRAZOLE 40 MG TABLET (FP) PO SCH (09:54)
[2017-05-16] MEDS: PRENATAL VITAMINS W/ FOLIC ACID TABLET (FP) PO SCH (09:54)
[2017-05-16] MEDS: MAG HYDROX/AL HYDROX/SIMETH 30 ML UNIT-DOSE CUP PO PRN (19:25)
[2017-05-16] MEDS: diphenhydrAMINE HCL 50 MG CAPSULE PO PRN (21:22)
[2017-05-16] MEDS: THIAMINE HCL 100 MG TABLET (FP) PO SCH (21:22)
[2017-05-16] MEDS: risperiDONE 2 MG TABLET PO SCH (21:22)
[2017-05-16] MEDS: MIRTAZAPINE 30 MG TABLET (FP) PO SCH (21:22)
[2017-05-16] MEDS: AMMONIUM LACTATE 12% LOTION 225 GM BOTTLE TP PRN (21:23)
[2017-05-17] MEDS: ALBUTEROL SO4 2.5/IPRATROPIUM 0.5 INH SOL 3 ML VIAL.NEB. NEB SCH ×4 (01:17→22:30)
[2017-05-17] MEDS: LISINOPRIL 20 MG TABLET (FP) PO SCH (10:05)
[2017-05-17] MEDS: PANTOPRAZOLE 40 MG TABLET (FP) PO SCH (10:05)
[2017-05-17] MEDS: NICOTINE 14 MG/24 HOURS TOPICAL PATCH TD SCH (10:05)
[2017-05-17] MEDS: PRENATAL VITAMINS W/ FOLIC ACID TABLET (FP) PO SCH (10:05)
[2017-05-17] MEDS: amLODIPine BESYLATE 5 MG TABLET (FP) PO SCH (10:05)
[2017-05-17] MEDS: HYDROCHLOROTHIAZIDE 25 MG TABLET (FP) PO SCH (10:05)
[2017-05-17] MEDS: NAPROXEN 500 MG TABLET (FP) PO SCH ×2 (10:05→22:30)
[2017-05-17] MEDS: ASPIRIN 81 MG CHEWABLE TABLETS PO SCH (10:05)
[2017-05-17] MEDS: BENZTROPINE MESYLATE 1 MG TABLET (FP) PO SCH ×2 (10:05→22:17)
[2017-05-17] MEDS: AMMONIUM LACTATE 12% LOTION 225 GM BOTTLE TP PRN (10:07)
[2017-05-17] MEDS: COLLOIDAL OATMEAL 1 BAR EACH TP PRN (10:07)
[2017-05-17] MEDS: MIRTAZAPINE 30 MG TABLET (FP) PO SCH (22:17)
[2017-05-17] MEDS: diphenhydrAMINE HCL 50 MG CAPSULE PO PRN (22:17)
[2017-05-17] MEDS: THIAMINE HCL 100 MG TABLET (FP) PO SCH (22:17)
[2017-05-17] MEDS: risperiDONE 2 MG TABLET PO SCH (22:17)
[2017-05-18] MEDS: LISINOPRIL 20 MG TABLET (FP) PO SCH (09:44)
[2017-05-18] MEDS: PRENATAL VITAMINS W/ FOLIC ACID TABLET (FP) PO SCH (09:44)
[2017-05-18] MEDS: PANTOPRAZOLE 40 MG TABLET (FP) PO SCH (09:44)
[2017-05-18] MEDS: NAPROXEN 500 MG TABLET (FP) PO SCH ×2 (09:44→22:18)
[2017-05-18] MEDS: ASPIRIN 81 MG CHEWABLE TABLETS PO SCH (09:44)
[2017-05-18] MEDS: NICOTINE 14 MG/24 HOURS TOPICAL PATCH TD SCH (09:44)
[2017-05-18] MEDS: BENZTROPINE MESYLATE 1 MG TABLET (FP) PO SCH ×2 (09:44→22:18)
[2017-05-18] MEDS: amLODIPine BESYLATE 5 MG TABLET (FP) PO SCH (09:44)
[2017-05-18] MEDS: HYDROCHLOROTHIAZIDE 25 MG TABLET (FP) PO SCH (09:45)
[2017-05-18] MEDS: ALBUTEROL SO4 2.5/IPRATROPIUM 0.5 INH SOL 3 ML VIAL.NEB. NEB SCH (12:40)
[2017-05-18] MEDS: MIRTAZAPINE 30 MG TABLET (FP) PO SCH (22:18)
[2017-05-18] MEDS: risperiDONE 2 MG TABLET PO SCH (22:18)
[2017-05-18] MEDS: diphenhydrAMINE HCL 50 MG CAPSULE PO PRN (22:18)
[2017-05-18] MEDS: THIAMINE HCL 100 MG TABLET (FP) PO SCH (22:18)
[2017-05-19] MEDS: BENZTROPINE MESYLATE 1 MG TABLET (FP) PO SCH ×2 (09:34→21:55)
[2017-05-19] MEDS: ASPIRIN 81 MG CHEWABLE TABLETS PO SCH (09:34)
[2017-05-19] MEDS: ALBUTEROL SO4 18 GM HFA INHALER IH PRN ×2 (09:34→21:56)
[2017-05-19] MEDS: NAPROXEN 500 MG TABLET (FP) PO SCH ×2 (09:35→21:55)
[2017-05-19] MEDS: LISINOPRIL 20 MG TABLET (FP) PO SCH (09:35)
[2017-05-19] MEDS: amLODIPine BESYLATE 5 MG TABLET (FP) PO SCH (09:35)
[2017-05-19] MEDS: HYDROCHLOROTHIAZIDE 25 MG TABLET (FP) PO SCH (09:35)
[2017-05-19] MEDS: PRENATAL VITAMINS W/ FOLIC ACID TABLET (FP) PO SCH (09:35)
[2017-05-19] MEDS: PANTOPRAZOLE 40 MG TABLET (FP) PO SCH (09:35)
[2017-05-19] MEDS: NICOTINE 14 MG/24 HOURS TOPICAL PATCH TD SCH (09:36)
[2017-05-19] MEDS: ALBUTEROL SO4 2.5/IPRATROPIUM 0.5 INH SOL 3 ML VIAL.NEB. NEB SCH ×2 (12:40→21:54)
[2017-05-19] MEDS: MENTHOL/PHENOL 1 EACH UD MM PRN (15:54)
[2017-05-19] MEDS: diphenhydrAMINE HCL 50 MG CAPSULE PO PRN (21:55)
[2017-05-19] MEDS: THIAMINE HCL 100 MG TABLET (FP) PO SCH (21:55)
[2017-05-19] MEDS: risperiDONE 2 MG TABLET PO SCH (21:55)
[2017-05-19] MEDS: MIRTAZAPINE 30 MG TABLET (FP) PO SCH (21:55)
[2017-05-20] MEDS: ALBUTEROL SO4 2.5/IPRATROPIUM 0.5 INH SOL 3 ML VIAL.NEB. NEB SCH ×3 (06:00→21:22)
[2017-05-20] MEDS: PRENATAL VITAMINS W/ FOLIC ACID TABLET (FP) PO SCH (09:42)
[2017-05-20] MEDS: ASPIRIN 81 MG CHEWABLE TABLETS PO SCH (09:42)
[2017-05-20] MEDS: amLODIPine BESYLATE 5 MG TABLET (FP) PO SCH (09:42)
[2017-05-20] MEDS: PANTOPRAZOLE 40 MG TABLET (FP) PO SCH (09:43)
[2017-05-20] MEDS: NAPROXEN 500 MG TABLET (FP) PO SCH ×2 (09:43→21:20)
[2017-05-20] MEDS: LISINOPRIL 20 MG TABLET (FP) PO SCH (09:43)
[2017-05-20] MEDS: HYDROCHLOROTHIAZIDE 25 MG TABLET (FP) PO SCH (09:43)
[2017-05-20] MEDS: BENZTROPINE MESYLATE 1 MG TABLET (FP) PO SCH ×2 (09:43→21:20)
[2017-05-20] MEDS: ALBUTEROL SO4 18 GM HFA INHALER IH PRN (09:44)
[2017-05-20] MEDS: NICOTINE 14 MG/24 HOURS TOPICAL PATCH TD SCH (09:44)
[2017-05-20] MEDS: diphenhydrAMINE HCL 50 MG CAPSULE PO PRN (21:20)
[2017-05-20] MEDS: risperiDONE 2 MG TABLET PO SCH (21:20)
[2017-05-20] MEDS: THIAMINE HCL 100 MG TABLET (FP) PO SCH (21:20)
[2017-05-20] MEDS: MIRTAZAPINE 30 MG TABLET (FP) PO SCH (21:20)
[2017-05-20] MEDS: MAG HYDROX/AL HYDROX/SIMETH 30 ML UNIT-DOSE CUP PO PRN (21:23)
[2017-05-21] MEDS: ALBUTEROL SO4 2.5/IPRATROPIUM 0.5 INH SOL 3 ML VIAL.NEB. NEB SCH ×3 (00:11→18:07)
[2017-05-21] MEDS: NAPROXEN 500 MG TABLET (FP) PO SCH ×2 (09:41→21:37)
[2017-05-21] MEDS: LISINOPRIL 20 MG TABLET (FP) PO SCH (09:41)
[2017-05-21] MEDS: ASPIRIN 81 MG CHEWABLE TABLETS PO SCH (09:41)
[2017-05-21] MEDS: amLODIPine BESYLATE 5 MG TABLET (FP) PO SCH (09:41)
[2017-05-21] MEDS: HYDROCHLOROTHIAZIDE 25 MG TABLET (FP) PO SCH (09:41)
[2017-05-21] MEDS: PRENATAL VITAMINS W/ FOLIC ACID TABLET (FP) PO SCH (09:41)
[2017-05-21] MEDS: PANTOPRAZOLE 40 MG TABLET (FP) PO SCH (09:41)
[2017-05-21] MEDS: BENZTROPINE MESYLATE 1 MG TABLET (FP) PO SCH ×2 (09:41→21:38)
[2017-05-21] MEDS: NICOTINE 14 MG/24 HOURS TOPICAL PATCH TD SCH (09:42)
[2017-05-21] MEDS: ALBUTEROL SO4 18 GM HFA INHALER IH PRN (09:43)
[2017-05-21] MEDS: THIAMINE HCL 100 MG TABLET (FP) PO SCH (21:37)
[2017-05-21] MEDS: risperiDONE 2 MG TABLET PO SCH (21:38)
[2017-05-21] MEDS: MIRTAZAPINE 30 MG TABLET (FP) PO SCH (21:38)
[2017-05-21] MEDS: diphenhydrAMINE HCL 50 MG CAPSULE PO PRN (21:40)
[2017-05-22] MEDS: PRENATAL VITAMINS W/ FOLIC ACID TABLET (FP) PO SCH (09:41)
[2017-05-22] MEDS: AMMONIUM LACTATE 12% LOTION 225 GM BOTTLE TP PRN (09:41)
[2017-05-22] MEDS: BENZTROPINE MESYLATE 1 MG TABLET (FP) PO SCH ×2 (09:42→21:55)
[2017-05-22] MEDS: HYDROCHLOROTHIAZIDE 25 MG TABLET (FP) PO SCH (09:42)
[2017-05-22] MEDS: LISINOPRIL 20 MG TABLET (FP) PO SCH (09:42)
[2017-05-22] MEDS: ASPIRIN 81 MG CHEWABLE TABLETS PO SCH (09:42)
[2017-05-22] MEDS: PANTOPRAZOLE 40 MG TABLET (FP) PO SCH (09:42)
[2017-05-22] MEDS: amLODIPine BESYLATE 5 MG TABLET (FP) PO SCH (09:42)
[2017-05-22] MEDS: NAPROXEN 500 MG TABLET (FP) PO SCH ×2 (09:42→21:55)
[2017-05-22] MEDS: NICOTINE 14 MG/24 HOURS TOPICAL PATCH TD SCH (09:43)
[2017-05-22] MEDS: ALBUTEROL SO4 18 GM HFA INHALER IH PRN (09:44)
[2017-05-22] MEDS: COLLOIDAL OATMEAL 1 BAR EACH TP PRN (09:45)
[2017-05-22] MEDS: ALBUTEROL SO4 2.5/IPRATROPIUM 0.5 INH SOL 3 ML VIAL.NEB. NEB SCH ×3 (18:04)
[2017-05-22] MEDS: THIAMINE HCL 100 MG TABLET (FP) PO SCH (21:54)
[2017-05-22] MEDS: MIRTAZAPINE 30 MG TABLET (FP) PO SCH (21:54)
[2017-05-22] MEDS: risperiDONE 2 MG TABLET PO SCH (21:54)
[2017-05-22] MEDS: diphenhydrAMINE HCL 50 MG CAPSULE PO PRN (21:55)
[2017-05-23] MEDS: LISINOPRIL 20 MG TABLET (FP) PO SCH (09:42)
[2017-05-23] MEDS: PRENATAL VITAMINS W/ FOLIC ACID TABLET (FP) PO SCH (09:42)
[2017-05-23] MEDS: PANTOPRAZOLE 40 MG TABLET (FP) PO SCH (09:42)
[2017-05-23] MEDS: BENZTROPINE MESYLATE 1 MG TABLET (FP) PO SCH ×2 (09:43→21:53)
[2017-05-23] MEDS: ASPIRIN 81 MG CHEWABLE TABLETS PO SCH (09:43)
[2017-05-23] MEDS: NAPROXEN 500 MG TABLET (FP) PO SCH ×2 (09:43→21:53)
[2017-05-23] MEDS: amLODIPine BESYLATE 5 MG TABLET (FP) PO SCH (09:43)
[2017-05-23] MEDS: HYDROCHLOROTHIAZIDE 25 MG TABLET (FP) PO SCH (09:43)
[2017-05-23] MEDS: NICOTINE 14 MG/24 HOURS TOPICAL PATCH TD SCH (09:43)
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
[2017-05-23] MEDS: ACETAMINOPHEN 325 MG TABLET (FP) PO PRN (11:56)
[2017-05-23] MEDS: ALBUTEROL SO4 2.5/IPRATROPIUM 0.5 INH SOL 3 ML VIAL.NEB. NEB SCH ×2 (12:36→18:00)
[2017-05-23] MEDS: THIAMINE HCL 100 MG TABLET (FP) PO SCH (21:52)
[2017-05-23] MEDS: MIRTAZAPINE 30 MG TABLET (FP) PO SCH (21:53)
[2017-05-23] MEDS: risperiDONE 2 MG TABLET PO SCH (21:53)
[2017-05-23] MEDS: diphenhydrAMINE HCL 50 MG CAPSULE PO PRN (21:54)
[2017-05-24] MEDS: ALBUTEROL SO4 2.5/IPRATROPIUM 0.5 INH SOL 3 ML VIAL.NEB. NEB SCH ×2 (06:04)
[2017-05-24 06:53] VITALS: BP 158/85; PULSE 82; TEMP 97.6
[2017-05-24] MEDS: ASPIRIN 81 MG CHEWABLE TABLETS PO SCH (09:00)
[2017-05-24] MEDS: NAPROXEN 500 MG TABLET (FP) PO SCH (09:00)
[2017-05-24] MEDS: PANTOPRAZOLE 40 MG TABLET (FP) PO SCH (09:00)
[2017-05-24] MEDS: HYDROCHLOROTHIAZIDE 25 MG TABLET (FP) PO SCH (09:00)
[2017-05-24] MEDS: PRENATAL VITAMINS W/ FOLIC ACID TABLET (FP) PO SCH (09:00)
[2017-05-24] MEDS: BENZTROPINE MESYLATE 1 MG TABLET (FP) PO SCH (09:01)
[2017-05-24] MEDS: LISINOPRIL 20 MG TABLET (FP) PO SCH (09:01)
[2017-05-24] MEDS: amLODIPine BESYLATE 5 MG TABLET (FP) PO SCH (09:01)
[2017-05-24] MEDS: NICOTINE 14 MG/24 HOURS TOPICAL PATCH TD SCH (09:01)
== END 2017-05-24 09:45 | disposition home or self-care (01) | DRG 772 ==
LOC: YASAS 13:55 → Y3W 17:19
PROVIDERS: ADMIT Psychiatry & Neurology Psychiatry; ATTEND Psychiatry & Neurology Psychiatry
PROC: HZ42ZZZ Group Counseling for Substance Abuse Treatment, Cognitive-Behavioral (ICD-10-PCS; principal; 2017-04-26)
DX: F14.20 Cocaine dependence, uncomplicated (principal); F17.210 Nicotine dependence, cigarettes, uncomplicated; F25.9 Schizoaffective disorder, unspecified; F31.9 Bipolar disorder, unspecified; I10 Essential (primary) hypertension; K21.9 Gastro-esophageal reflux disease without esophagitis; E78.00 Pure hypercholesterolemia, unspecified; I25.10 Atherosclerotic heart disease of native coronary artery without angina pectoris; J45.901 Unspecified asthma with (acute) exacerbation; K08.89 Other specified disorders of teeth and supporting structures; Z95.5 Presence of coronary angioplasty implant and graft; Z88.8 Allergy status to other drugs, medicaments and biological substances
CPT/HCPCS: 36415; 80053; 81003; 85027; 86593; 93005; 93010; 94640

== ENCOUNTER 2018-09-28 09:37 | Inpatient (IN) | payer OTHER ==
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
[2018-09-28] MEDS ORDERED: chlordiazePOXIDE HCL 25 MG CAPSULE PO PRN (12:27)
[2018-09-28] MEDS ORDERED: MAGNESIUM HYDROX 2400MG/30ML ORAL SUSPENSION 30 ML CUP PO PRN (12:27)
[2018-09-28] MEDS ORDERED: MENTHOL/PHENOL 1 EACH UD MM PRN (12:27)
[2018-09-28] MEDS ORDERED: IBUPROFEN 400 MG TABLET (FP) PO PRN (12:27)
[2018-09-28] MEDS ORDERED: MAG HYDROX/AL HYDROX/SIMETH 30 ML UNIT-DOSE CUP PO PRN (12:27)
[2018-09-28] MEDS ORDERED: LOPERAMIDE HCL 2 MG CAPSULE PO PRN (12:27)
[2018-09-28] MEDS ORDERED: ACETAMINOPHEN 325 MG TABLET (FP) PO PRN (12:27)
[2018-09-28] MEDS ORDERED: MAGNESIUM CITRATE 300 ML BOTTLE PO PRN (12:27)
[2018-09-28] MEDS ORDERED: guaiFENesin/D-METHORPHAN HB 10 ML UNIT-DOSE CUPS PO PRN (12:27)
[2018-09-28] MEDS ORDERED: P-EPHED 60MG/TRIPROLIDI 2.5MG TABLET PO PRN (12:27)
[2018-09-28] MEDS ORDERED: METHADONE HCL 10 MG TABLET (FOR DETOX USE ONLY) PO ONE ×2 (12:27→23:00)
[2018-09-28] MEDS ORDERED: ALBUTEROL SO4 8 GM HFA INHALER IH PRN (12:31)
[2018-09-28] MEDS ORDERED: NICOTINE POLACRILEX 2 MG GUM BUC PRN (12:31)
[2018-09-28] MEDS: NICOTINE 21 MG/24 HOURS TOPICAL PATCH TD SCH (13:40)
[2018-09-28 13:48] VITALS: BMI 24.8
[2018-09-28] MEDS: chlordiazePOXIDE HCL 25 MG CAPSULE PO SCH ×2 (17:47→22:22)
[2018-09-28] MEDS ORDERED: MELATONIN 5 MG TABLETS PO PRN (22:00)
[2018-09-28] MEDS: THIAMINE HCL 100 MG TABLET (FP) PO SCH (22:22)
[2018-09-29] MEDS: chlordiazePOXIDE HCL 25 MG CAPSULE PO SCH ×4 (05:25→22:26)
[2018-09-29] MEDS ORDERED: METHADONE HCL 10 MG TABLET (FOR DETOX USE ONLY) PO SCH (10:00)
[2018-09-29 10:08] LABS: ALK PHOS 128 U/L (45-117); ANION GAP 6 MMOL/L (8-16); BILIRUBIN,TOTAL 0.2 mg/dL (0.2-1); BLOOD UREA NITROGEN 19 mg/dL (7-18); CALCIUM 9.1 mg/dL (8.5-10.1); CHLORIDE 101 mmol/L (98-107); CO2 30 mmol/L (21-32); CREATININE 1.4 mg/dL (0.55-1.3); GLUCOSE,RANDOM 92 mg/dL (74-106); SGOT/AST 10 U/L (15-37); SGPT/ALT 11 U/L (13-61); SODIUM 138 mmol/L (136-145); TOT PROT 6.1 g/dl (6.4-8.2)
[2018-09-29 10:29] LABS: HEMATOCRIT 32.6 % (35.4-49); HEMOGLOBIN 10.9 GM/dL (11.7-16.9); MCH 29.1 pg (25.7-33.7); MCHC 33.3 g/dl (32.0-35.9); MEAN CELL VOLUME 87.1 fl (80-96); MEAN PLT VOLUME 8.4 fl (7.5-11.1); PLATELET COUNT 219 K/MM3 (134-434); RBC 3.74 M/mm3 (4.00-5.60); RDW 16.9 % (11.9-15.9); WHITE BLOOD COUNT 3.6 K/mm3 (4.0-10.0)
[2018-09-29] MEDS: LISINOPRIL 20 MG TABLET (FP) PO SCH (10:30)
[2018-09-29] MEDS: ASPIRIN 81 MG CHEWABLE TABLETS PO SCH (10:30)
[2018-09-29] MEDS: PRENATAL VITAMINS W/ FOLIC ACID TABLET (FP) PO SCH (10:30)
[2018-09-29] MEDS: PANTOPRAZOLE 20 MG TABLET (FP) PO SCH (10:30)
[2018-09-29] MEDS: amLODIPine BESYLATE 5 MG TABLET (FP) PO SCH (10:30)
[2018-09-29] MEDS: HYDROCHLOROTHIAZIDE 25 MG TABLET (FP) PO SCH (10:31)
[2018-09-29] MEDS: NICOTINE 21 MG/24 HOURS TOPICAL PATCH TD SCH (10:31)
--- NOTE | 2018-09-29 15:00 | PN ---
[facility] CIWA - CIWA Score Nausea/Vomitin-Mild Nausea/No Vomiting Muscle Tremors: 2 Anxiety: 3 Agitation: 3 Paroxysmal Sweats: 1-Minimal Palms Moist Orientation: 1-Uncertain about Date Tacttile Disturbances: 0-None Auditory Disturbances: 0-None Visual Disturbances: 0-None Headache: 1-Very Mild CIWA-Ar Total Score: 12 BHS COWS - Scale Resting Pulse: 0= [place] 80 or Below Sweatin= Chills/Flushing Restless Observation: 0= Sits Still Pupil Size: 0= Normal to Room Light Bone or Joint Aches: 1= Mild Discomfort Runny Nose/ Eye Tearin= Nasal Congestion GI Upset > 30mins: 1= Stomach Cramp Tremor Observation of Outstretched Hands: 1= Tremor [place], Not Seen Yawning Observation: 2= >3x During Session Anxiety or Irritability: 2=Irritable/Anxious Goose Flesh Skin: 0=Smooth Skin COWS Score: 9 [facility] Progress Note (SOAP) Subjective: body ache tremor sweating muscle aches joints pain Objective: 09/29/18 15:07 Vital Signs Temperature 96.2 F L 09/29/18 13:52 Pulse Rate 70 09/29/18 13:52 Respiratory Rate 18 09/29/18 13:52 Blood Pressure 142/83 09/29/18 13:52 O2 Sat by Pulse Oximetry (%) Laboratory Last Values WBC 3.6 K/mm3 (4.0-10.0) L 09/29/18 07:00 RBC 3.74 M/mm3 (4.00-5.60) L 09/29/18 07:00 Hgb 10.9 GM/dL (11.7-16.9) L 09/29/18 07:00 Hct 32.6 % (35.4-49) L 09/29/18 07:00 MCV 87.1 fl (80-96) 09/29/18 07:00 MCH 29.1 pg (25.7-33.7) 09/29/18 07:00 MCHC 33.3 g/dl (32.0-35.9) 09/29/18 07:00 RDW 16.9 % (11.9-15.9) H 09/29/18 07:00 Plt Count 219 K/MM3 (134-434) D 09/29/18 07:00 MPV 8.4 fl (7.5-11.1) 09/29/18 07:00 Sodium 138 mmol/L (136-145) 09/29/18 07:00 Potassium 4.0 mmol/L (3.5-5.1) 09/29/18 07:00 Chloride 101 mmol/L (98-107) 09/29/18 07:00 Carbon Dioxide 30 mmol/L (21-32) 09/29/18 07:00 Anion Gap 6 MMOL/L (8-16) L 09/29/18 07:00 BUN 19 mg/dL (7-18) H 09/29/18 07:00 Creatinine 1.4 mg/dL (0.55-1.3) H 09/29/18 07:00 Creat Clearance w eGFR 52.05 (>60) 09/29/18 07:00 Random Glucose 92 mg/dL (74-106) 09/29/18 07:00 Calcium 9.1 mg/dL (8.5-10.1) 09/29/18 07:00 Total Bilirubin 0.2 mg/dL (0.2-1) 09/29/18 07:00 AST 10 U/L (15-37) L 09/29/18 07:00 ALT 11 U/L (13-61) L 09/29/18 07:00 Alkaline Phosphatase 128 U/L (45-117) H 09/29/18 07:00 Total Protein 6.1 g/dl (6.4-8.2) L 09/29/18 07:00 Albumin 3.0 g/dl (3.4-5.0) L 09/29/18 07:00 RPR Titer Nonreactive (NONREACTIVE) 09/29/18 07:00 lab noted Assessment: 09/29/18 15:08 alcohol and opaite withdrawal sx 09/29/18 15:11 seizure Plan: continue detox keppra
[2018-09-29] MEDS ORDERED: levETIRAcetam 500 MG TABLET (FP) PO SCH (22:00)
[2018-09-29] MEDS: THIAMINE HCL 100 MG TABLET (FP) PO SCH (22:23)
[2018-09-29] MEDS: levETIRAcetam 500 MG TABLET (FP) PO SCH (22:25)
[2018-09-30] MEDS: chlordiazePOXIDE HCL 25 MG CAPSULE PO SCH ×2 (05:51→11:55)
[2018-09-30] MEDS: LISINOPRIL 20 MG TABLET (FP) PO SCH (10:11)
[2018-09-30] MEDS: HYDROCHLOROTHIAZIDE 25 MG TABLET (FP) PO SCH (10:11)
[2018-09-30] MEDS: PANTOPRAZOLE 20 MG TABLET (FP) PO SCH (10:11)
[2018-09-30] MEDS: METHADONE HCL 5 MG TABLET (FOR DETOX USE ONLY) PO SCH (10:11)
[2018-09-30] MEDS: amLODIPine BESYLATE 5 MG TABLET (FP) PO SCH (10:11)
[2018-09-30] MEDS: levETIRAcetam 500 MG TABLET (FP) PO SCH ×2 (10:11→23:13)
[2018-09-30] MEDS: ASPIRIN 81 MG CHEWABLE TABLETS PO SCH (10:11)
[2018-09-30] MEDS: NICOTINE 21 MG/24 HOURS TOPICAL PATCH TD SCH (10:11)
[2018-09-30] MEDS: PRENATAL VITAMINS W/ FOLIC ACID TABLET (FP) PO SCH (10:12)
--- NOTE | 2018-09-30 13:29 | PN ---
[facility] CIWA - CIWA Score Nausea/Vomitin-No Nausea/No Vomiting Muscle Tremors: 2 Anxiety: 1-Mildly Anxious Agitation: 1-Slight > Activity Paroxysmal Sweats: 1-Minimal Palms Moist Orientation: 2-Disoriented Date<2 days Tacttile Disturbances: 0-None Auditory Disturbances: 0-None Visual Disturbances: 0-None Headache: 1-Very Mild CIWA-Ar Total Score: 8 BHS COWS - Scale Resting Pulse: 0= [place] 80 or Below Sweatin= Chills/Flushing Restless Observation: 0= Sits Still Pupil Size: 0= Normal to Room Light Bone or Joint Aches: 1= Mild Discomfort Runny Nose/ Eye Tearin= Nasal Congestion GI Upset > 30mins: 1= Stomach Cramp Tremor Observation of Outstretched Hands: 1= Tremor [place], Not Seen Yawning Observation: 1= 1-2x During Session Anxiety or Irritability: 1=Feels Anxious/Irritable Goose Flesh Skin: 0=Smooth Skin COWS Score: 7 S Progress Note (SOAP) Subjective: body ache acid reflux tremor anxiety sweating patietn preferred sleep on bed hesitate to walking around the hallway Objective: 09/30/18 13:38 Vital Signs Temperature 99.8 F H 09/30/18 09:25 Pulse Rate 69 09/30/18 09:25 Respiratory Rate 18 09/30/18 09:25 Blood Pressure 122/76 09/30/18 09:25 O2 Sat by Pulse Oximetry (%) Laboratory Last Values WBC 3.6 K/mm3 (4.0-10.0) L 09/29/18 07:00 RBC 3.74 M/mm3 (4.00-5.60) L 09/29/18 07:00 Hgb 10.9 GM/dL (11.7-16.9) L 09/29/18 07:00 Hct 32.6 % (35.4-49) L 09/29/18 07:00 MCV 87.1 fl (80-96) 09/29/18 07:00 MCH 29.1 pg (25.7-33.7) 09/29/18 07:00 MCHC 33.3 g/dl (32.0-35.9) 09/29/18 07:00 RDW 16.9 % (11.9-15.9) H 09/29/18 07:00 Plt Count 219 K/MM3 (134-434) D 09/29/18 07:00 MPV 8.4 fl (7.5-11.1) 09/29/18 07:00 Sodium 138 mmol/L (136-145) 09/29/18 07:00 Potassium 4.0 mmol/L (3.5-5.1) 09/29/18 07:00 Chloride 101 mmol/L (98-107) 09/29/18 07:00 Carbon Dioxide 30 mmol/L (21-32) 09/29/18 07:00 Anion Gap 6 MMOL/L (8-16) L 09/29/18 07:00 BUN 19 mg/dL (7-18) H 09/29/18 07:00 Creatinine 1.4 mg/dL (0.55-1.3) H 09/29/18 07:00 Creat Clearance w eGFR 52.05 (>60) 09/29/18 07:00 Random Glucose 92 mg/dL (74-106) 09/29/18 07:00 Calcium 9.1 mg/dL (8.5-10.1) 09/29/18 07:00 Total Bilirubin 0.2 mg/dL (0.2-1) 09/29/18 07:00 AST 10 U/L (15-37) L 09/29/18 07:00 ALT 11 U/L (13-61) L 09/29/18 07:00 Alkaline Phosphatase 128 U/L (45-117) H 09/29/18 07:00 Total Protein 6.1 g/dl (6.4-8.2) L 09/29/18 07:00 Albumin 3.0 g/dl (3.4-5.0) L 09/29/18 07:00 RPR Titer Nonreactive (NONREACTIVE) 09/29/18 07:00 lab noted Assessment: 09/30/18 13:38 withdrawal sx sleepy through out the morning Plan: continue detox ammonia
[2018-09-30] MEDS ORDERED: cloNIDine HCL 0.1 MG TABLET PO ONE (18:30)
--- NOTE | 2018-09-30 18:30 | PN ---
[facility] Progress Note Note: Vital Signs Temperature 97.4 F L 09/30/18 17:56 Pulse Rate 70 09/30/18 17:56 Respiratory Rate 17 09/30/18 17:56 Blood Pressure 178/97 H 09/30/18 17:56 O2 Sat by Pulse Oximetry (%) Laboratory Last Values WBC 3.6 K/mm3 (4.0-10.0) L 09/29/18 07:00 RBC 3.74 M/mm3 (4.00-5.60) L 09/29/18 07:00 Hgb 10.9 GM/dL (11.7-16.9) L 09/29/18 07:00 Hct 32.6 % (35.4-49) L 09/29/18 07:00 MCV 87.1 fl (80-96) 09/29/18 07:00 MCH 29.1 pg (25.7-33.7) 09/29/18 07:00 MCHC 33.3 g/dl (32.0-35.9) 09/29/18 07:00 RDW 16.9 % (11.9-15.9) H 09/29/18 07:00 Plt Count 219 K/MM3 (134-434) D 09/29/18 07:00 MPV 8.4 fl (7.5-11.1) 09/29/18 07:00 Sodium 138 mmol/L (136-145) 09/29/18 07:00 Potassium 4.0 mmol/L (3.5-5.1) 09/29/18 07:00 Chloride 101 mmol/L (98-107) 09/29/18 07:00 Carbon Dioxide 30 mmol/L (21-32) 09/29/18 07:00 Anion Gap 6 MMOL/L (8-16) L 09/29/18 07:00 BUN 19 mg/dL (7-18) H 09/29/18 07:00 Creatinine 1.4 mg/dL (0.55-1.3) H 09/29/18 07:00 Creat Clearance w eGFR 52.05 (>60) 09/29/18 07:00 Random Glucose 92 mg/dL (74-106) 09/29/18 07:00 Calcium 9.1 mg/dL (8.5-10.1) 09/29/18 07:00 Total Bilirubin 0.2 mg/dL (0.2-1) 09/29/18 07:00 AST 10 U/L (15-37) L 09/29/18 07:00 ALT 11 U/L (13-61) L 09/29/18 07:00 Alkaline Phosphatase 128 U/L (45-117) H 09/29/18 07:00 Total Protein 6.1 g/dl (6.4-8.2) L 09/29/18 07:00 Albumin 3.0 g/dl (3.4-5.0) L 09/29/18 07:00 RPR Titer Nonreactive (NONREACTIVE) 09/29/18 07:00 Patient drowsy and sleepy through the day. Patient was able to wake up once he was given a cup of cold water. Patient denies any pain, CP, headache, dizziness. Reports he just feels tire. Aox3 no no acute distress EENT WNL + nasal congestion Lungs clear throughout s1 d2 no JVD skin intact, + dryness elevated BP secondary to withdrawal symptoms abnormal labs d/c mag meds librium 15 mg held d/t drowsiness clonodine 0.1 mg for BP increase PO fluids fall precautions continue to monitor
[2018-09-30] MEDS: chlordiazePOXIDE 5 MG CAPSULE PO SCH ×2 (18:53→23:13)
[2018-09-30] MEDS: THIAMINE HCL 100 MG TABLET (FP) PO SCH (23:13)
[2018-10-01] MEDS: chlordiazePOXIDE 5 MG CAPSULE PO SCH ×2 (06:02→11:04)
[2018-10-01] MEDS ORDERED: NALOXONE HCL 0.4 MG/ML VIAL IM ONE ×3 (06:43→07:00)
[2018-10-01] MEDS ORDERED: NALOXONE HCL 0.4 MG/ML VIAL ONE ×2 (06:49→07:16)
--- NOTE | 2018-10-01 08:02 | PN ---
[facility] Progress Note Note: APPROX-640 AM RN CALLED TO SEE PATIENT FOR "HARD TO WAKE UP" " BUT "CLIENT IS BREATHING" . UPON ARRIVAL CLIENT FOUND LYING IN BED/ LEFT SIDE FACIAL DROOPING/ INCONTINENT OF URINE UNRESPONSIVE TO ALL STIMULI WITH LABORED BREATHING APPROX 10-12 BREATH PER MIN; O2 SAT RA 50% PUPILS PIN POINT NOT RESPONSIVE TO LIGHT CV RRR LUNGS-COARSE BREATH SOUNDS ABD- PROTRUBENT/DISTENDED- SOFT/ HYPOACTIVE BS X4 EXTREMITIES- COLD 6:47AM- RAPID RESPONSE CALLED. NARCAN 0.8MG IM GIVEN. 02 6L NC GIVEN -REPEAT O2 SAT 98% BGM 111 MG/DL Vital Signs - 8 hr 10/01/18 10/01/18 10/01/18 03:30 06:40 07:00 Pulse Rate 79 79 Respiratory 18 10 Rate Blood Pressure 143/80 162/95 PATEINT REMAINS VERY SEDATED AND WITH PERIOD OF BRIEF AWAKENING UN ABLE TO STAY AWAKE NOW SNORING WITH PEROD OF TRYING TO CLEAR AIRWAY WITH COUGHING. SLIGHTLY RESPONDING TO PAIN STIMULI, POSITIONED LEFT SIDE LYING 911 INITIATED 7AM NARCAN 0.4MG IM GIVEN 710 AM EMS ON SCENE. APPROX 7::35 AM CLIENT LEFT UNIT VIA STRETCHER ACCOMPANIED BY EMS TO TRANSFER TO [facility].
[2018-10-01 08:23] VITALS: PULSE 79
[2018-10-01 08:33] VITALS: BP 162/95
[2018-10-01 09:26] VITALS: TEMP 96.4
[2018-10-01] MEDS: HYDROCHLOROTHIAZIDE 25 MG TABLET (FP) PO SCH (11:03)
[2018-10-01] MEDS: METHADONE HCL 5 MG TABLET (FOR DETOX USE ONLY) PO SCH (11:03)
[2018-10-01] MEDS: levETIRAcetam 500 MG TABLET (FP) PO SCH ×2 (11:03→22:46)
[2018-10-01] MEDS: ASPIRIN 81 MG CHEWABLE TABLETS PO SCH (11:03)
[2018-10-01] MEDS: amLODIPine BESYLATE 5 MG TABLET (FP) PO SCH (11:04)
[2018-10-01] MEDS: LISINOPRIL 20 MG TABLET (FP) PO SCH (11:04)
[2018-10-01] MEDS: NICOTINE 21 MG/24 HOURS TOPICAL PATCH TD SCH (11:04)
[2018-10-01] MEDS: PANTOPRAZOLE 20 MG TABLET (FP) PO SCH (11:04)
[2018-10-01] MEDS: PRENATAL VITAMINS W/ FOLIC ACID TABLET (FP) PO SCH (11:04)
[2018-10-01] MEDS: chlordiazePOXIDE HCL 10 MG CAPSULE PO SCH ×2 (18:16→22:47)
[2018-10-01] MEDS: THIAMINE HCL 100 MG TABLET (FP) PO SCH (22:46)
[2018-10-02] MEDS ORDERED: METHADONE HCL 10 MG TABLET (FOR DETOX USE ONLY) PO SCH (10:00)
[2018-10-03] MEDS ORDERED: METHADONE HCL 5 MG TABLET (FOR DETOX USE ONLY) PO SCH (06:00)
== END 2018-10-01 23:50 | disposition short-term general hospital (02) | DRG 773 ==
LOC: YASAS 09:37 → Y3N 12:47
PROVIDERS: ADMIT Surgery; ATTEND Surgery
PROC: HZ2ZZZZ Detoxification Services for Substance Abuse Treatment (ICD-10-PCS; principal; 2018-09-28)
DX: F11.23 Opioid dependence with withdrawal (principal); F10.230 Alcohol dependence with withdrawal, uncomplicated; F14.20 Cocaine dependence, uncomplicated; F12.20 Cannabis dependence, uncomplicated; F17.210 Nicotine dependence, cigarettes, uncomplicated; F31.9 Bipolar disorder, unspecified; I10 Essential (primary) hypertension; I25.10 Atherosclerotic heart disease of native coronary artery without angina pectoris; R79.9 Abnormal finding of blood chemistry, unspecified; G40.909 Epilepsy, unspecified, not intractable, without status epilepticus; K21.9 Gastro-esophageal reflux disease without esophagitis; G47.9 Sleep disorder, unspecified; R29.810 Facial weakness; R32 Unspecified urinary incontinence; R40.20 Unspecified coma; Z88.8 Allergy status to other drugs, medicaments and biological substances; Z95.5 Presence of coronary angioplasty implant and graft
CPT/HCPCS: 36415; 80053; 82962; 85027; 86593; J0735

== ENCOUNTER 2018-10-01 07:35 | Inpatient (IN) | payer OTHER ==
--- NOTE | 2018-10-01 07:42 | PDOC ---
History of Present Illness - General History Source: Patient Exam Limitations: No Limitations - History of Present Illness Initial Comments: 10/01/18 09:13 The patient is a 58 year old male with a past medical history of HTN, CAD, COPD , seizure disorder, stent placed in 1999, CABG, and GERD brought in by EMS today for evaluation of altered mental status. Patient was admitted to [facility] for polysubstance abuse on 09/28/18. Patient was at baseline yesterday but was found this morning responsive to his name but unable to answer questions or follow commands. Allergies: chlorpromazine HCL, haloperidol Social history: History of polysubstance abuse (alcohol, cocaine, heroin, marijuana) PCP: Eligio Valenzuela <Johnson Mahajan - Last Filed: 10/01/18 12:28> - General History Source: EMS, Old Records Exam Limitations: Clinical Condition <Nely Bustamante - Last Filed: 10/03/18 08:23> - General Stated Complaint: UNRESPONSIVE Past History <Johnson Mahajan - Last Filed: 10/01/18 12:28> - Past Medical History Anemia: No Asthma: No Cancer: No Cardiac Disorders: Yes (cad with stent in 1999,coronary by pass graft) CVA: No COPD: Yes (on albuterol inhaler) CHF: No Dementia: No Diabetes: No GI Disorders: Yes (GERD,no med) Disorders: No HTN: Yes (On meds.no compliance) Hypercholesterolemia: No Kidney Stones: No Liver Disease: No Seizures: No Thyroid Disease: No - Surgical History Abdominal Surgery: No Appendectomy: No Cardiac Surgery: Yes (Stent placement-1999,s/p coronary by pass surgery 2 vessels in 2012) Cholecystectomy: No Lung Surgery: No Neurologic Surgery: No Orthopedic Surgery: Yes (fx left knee at age of 17) - Reproductive History Testicular Surgery: No - Suicide/Smoking/Psychosocial Hx Smoking History: Current some day smoker Have you smoked in the past 12 months: Yes Number of Cigarettes Smoked Daily: 40 Cigars Per Day: 0 'Breaking Loose' booklet given: 09/28/18 Hx Alcohol Use: Yes Drug/Substance Use Hx: Yes Substance Use Type: Alcohol, Cocaine, Marijuana, Opiates Hx Substance Use Treatment: Yes ([facility] 04/26/17 to 05/24/17 rehab) <Nely Bustamante - Last Filed: 10/03/18 08:23> - Past Medical History Allergies/Adverse Reactions: Allergies Allergy/AdvReac Type Severity Reaction Status Date / Time chlorpromazine HCl AdvReac Severe stiffness Verified 09/28/18 11:06 [From Thorazine] haloperidol [From Haldol] AdvReac Severe stiffness Verified 09/28/18 11:06 Home Medications: Ambulatory Orders Aspirin [ASA -] 81 mg PO DAILY 11/17/12 Esomeprazole Mag Trihydrate [Nexium] 40 mg PO DAILY 11/17/12 Albuterol Sulfate Inhaler - [Ventolin HFA Inhaler -] 2 puff IH Q4H PRN #30 inhaler 05/23/17 Amlodipine Besylate [Norvasc -] 5 mg PO DAILY #30 tab 05/23/17 Benztropine Mesylate [Cogentin -] 1 mg PO BID #60 tablet 05/23/17 Hydrochlorothiazide [Hctz -] 25 mg PO DAILY #30 tab 05/23/17 Lisinopril [Prinivil] 20 mg PO DAILY #30 tab 05/23/17 Mirtazapine [Remeron -] 30 mg PO HS #30 tablet 05/23/17 Risperidone [Risperdal -] 2 mg PO HS #30 tablet 05/23/17 levETIRAcetam [Keppra -] 500 mg PO BID 09/29/18 Naloxone HCl [Narcan] 4 mg NS ASDIR PRN 10/01/18 Review of Systems - Review of Systems Able to Perform ROS?: No (patient unresponsive) <Johnson Mahajan - Last Filed: 10/01/18 12:28> *Physical Exam - Vital Signs Last Vital Signs Temp Pulse Resp BP Pulse Ox 99.6 F 77 20 142/102 H 96 10/01/18 07:44 10/01/18 08:51 10/01/18 08:51 10/01/18 08:51 10/01/18 08:51 - Physical Exam Comments: 10/01/18 09:13 GENERAL: The patient is only responsive to his name. HEAD: Normal with no signs of trauma. EYES: PERRLA, EOMI, sclera anicteric, conjunctiva clear. ENT: Ears normal, nares patent, oropharynx clear without exudates. Moist mucous membranes. NECK: Normal range of motion, supple without lymphadenopathy, JVD, or masses. LUNGS: +rhonchi bilaterally. Breath sounds equal bilaterally. No wheezes, and no crackles. HEART:Regular rate and rhythm, normal S1 and S2 without murmur, rub or gallop. ABDOMEN: +surgical scars. Soft, nontender, normoactive bowel sounds. No guarding , no rebound. No masses palpable. EXTREMITIES: Normal range of motion, no edema. No clubbing or cyanosis. No erythema, or tenderness. NEUROLOGICAL: Cranial nerves II through XII grossly intact. Normal speech. No focal neurological deficits. MUSCULOSKELETAL: Back non-tender to palpation, no CVA tenderness SKIN: Warm, Dry, normal turgor, no rashes or lesions noted. <Johnson Mahajan - Last Filed: 10/01/18 12:28> Moderate Sedation - Procedure Monitoring Vital Signs: Procedure Monitoring Vital Signs Temperature 99.6 F 10/01/18 07:44 Pulse Rate 77 10/01/18 08:51 Respiratory Rate 20 10/01/18 08:51 Blood Pressure 142/102 H 10/01/18 08:51 O2 Sat by Pulse Oximetry (%) 96 10/01/18 08:51 <Johnson Mahajan - Last Filed: 10/01/18 12:28> Procedures - Intubation Intubation Method: orotracheal Blade used: Glidescope Tube Size (Fr): 7.5 Medications: Etomidate, Succinylcholine Tube position @ lip (cm): 24 Tube position confirmed by: Direct visualization, CO2 detector, Chest x-ray, Breath sounds Breath Sounds after Intubation: equal Post Intubation Xray: Yes <Nely Bustamante - Last Filed: 10/03/18 08:23> ED Treatment Course - LABORATORY CBC & Chemistry Diagram: 10/01/18 09:42 10/01/18 09:42 - ADDITIONAL ORDERS Additional order review: Laboratory Results 10/01/18 07:57 POC Glucometer 123 10/01/18 07:57 POC Glucometer 123 <Johnson Mahajan - Last Filed: 10/01/18 12:28> - LABORATORY CBC & Chemistry Diagram: 10/03/18 05:30 10/03/18 05:30 <Nely Bustamante - Last Filed: 10/03/18 08:23> Medical Decision Making - Medical Decision Making Call placed to [facility] group at 12:08, awaiting call back. Call placed to Dr. Montes at 12:11, awaiting call back. [facility] returned call at 12:16, case discussed. Dr. Montes returned call at 12:26, case discussed. <Johnson Mahajan - Last Filed: 10/01/18 12:28> - Critical Care Time Total Critical Care Time (minutes): 120 Critical Care Statement: The care of this patient involved high complexity decision making to prevent further life threatening deterioration of the patient 's condition and/or to evaluate & treat vital organ system(s) failure or risk of failure. - Medical Decision Making 10/01/18 08:21 Pt taken to 10/01/18 09:20 Pt has pulled out his IV Restraints ordered EKG - NSR rate of 77 bpm, axis nmol, intervals nml, no st elevation or depression, t waves upright, LVH Mr tolliver presents to the ER from [facility] due to unresponsiveness Pt has a h/o polysubsstance abuse, admitted to [facility] 3 days ago, h/o HTN, COPD, seizure d/o (non compliant) Pt found in bed this morning unresponsive Pt given Narcan 0.4mg IV x 3 Pt arrived to the ER somnolent minimally responsive to his name Stroke Protocol initiated Pt sent to CT immediately CT demonstrates no evidence of hydrocephalus, acute SAH, intraaxial or extra axial fluid collection, 10/01/18 10:28 Presentation due to ? seizure and prolonged post ictal phase, effect of drug/ substance, hypercarbia Laboratory Tests 10/01/18 10/01/18 10/01/18 07:57 09:42 09:42 WBC 9.0 Hgb 12.2 Hct 36.8 Plt Count 239 INR 1.01 POC Glucometer 123 10/01/18 10:29 CXR- cardiomegaly, no CHF 10/01/18 11:11 Laboratory Tests 10/01/18 10/01/18 10/01/18 09:42 09:42 09:42 WBC 9.0 Hgb 12.2 Hct 36.8 Plt Count 239 INR 1.01 Sodium 131 L Potassium 4.8 Chloride 94 L Carbon Dioxide 30 BUN 14 Creatinine 1.0 Random Glucose 108 H Creatine Kinase 432 H CK-MB (CK-2) 3.9 H Troponin I 0.54 H HCO3 not elevated on chemistries pt more awake Pt pulled out Right IJ IV Pt pulled off necklace When asked if he did drugs, pt shakes his head No Pt denies chest pain 10/01/18 12:[address] Falcon (Cardiology) Case reviewed with Dr. Montes (Neuro) 10/01/18 13:[address] Garcia Will place on Tele 10/01/18 16:19 End tidal CO2 reading 40s Pt somnolent again Laboratory Tests 10/01/18 15:44 ABG pH 7.30 L ABG pCO2 at Pt Temp 66.0 H* ABG pO2 at Pt Temp 57.[address] on BiPAP 10/01/18 16:45 10/01/18 19:10 Pt increasingly somnolent, unable to arouse to very deep stimuli (pupils 3mm bilaterally and reactive) Will intubate Call placed to ICU They came to the ER to assess this patient Pt has left AC line Intubation with use of left AC line, pt does not appear to be sedated after Etomidate and Succinylcholine Line initially flushed well but appears to be blown (though no fluid collection seen distal to the line) Right EJ placed RSI meds given again Attempted to view cords with DL, challenging, unable to pass ETT Glidescope used Cords visualized (pt very anterior) 7.5 ETT passed, 24 at lip (+) tube fogging, bilateral breath sounds, Color change pt suctioned aggressively Vent - Rate 14, 100%, 05/04 CXR performed - ETT at [facility] NO NGT available for gastric decompression ETT suctioned with return of thick fluid Will suction prn O2 sat = 95-98% Will give empiric Zosyn IV Pt on Versed drip for sedation Clincal impression: respiratory failure, initial presentation 10/01/18 20:14 10/01/18 21:58 <Nely Bustamante - Last Filed: 10/03/18 08:23> *DC/Admit/Observation/Transfer - Attestations Scribe Attestion: 10/01/18 09:14 Documentation prepared by YOUNG Tom, acting as medical record consultant for Nely Bustamante MD. <Johnson Mahajan - Last Filed: 10/01/18 12:28> - Discharge Dispostion Decision to Admit order: Yes <Nely Bustamante - Last Filed: 10/03/18 08:23> Diagnosis at time of Disposition: Elevated troponin - Discharge Dispostion Condition at time of disposition: Stable
[2018-10-01 10:00] LABS: BASO % 0.3 % (0-2.0); EOS % 0.1 % (0-4.5); HEMATOCRIT 36.8 % (35.4-49); HEMOGLOBIN 12.2 GM/dL (11.7-16.9); LYMPH % 9.9 % (8-40); MCH 29.3 pg (25.7-33.7); MCHC 33.2 g/dl (32.0-35.9); MEAN CELL VOLUME 88.1 fl (80-96); MEAN PLT VOLUME 7.9 fl (7.5-11.1); MONO % 5.8 % (3.8-10.2); NEUT % 83.9 % (42.8-82.8); PLATELET COUNT 239 K/MM3 (134-434); RBC 4.17 M/mm3 (4.00-5.60); RDW 16.5 % (11.9-15.9)
[2018-10-01 10:19] LABS: INR 1.01 (0.83-1.09); PROTHROMBIN TIME (PATIENT) 11.9 SEC (9.7-13.0)
[2018-10-01 10:32] LABS: ALBUMIN 3.3 g/dl (3.4-5.0); ALK PHOS 102 U/L (45-117); ANION GAP 6 MMOL/L (8-16); BILIRUBIN,TOTAL 0.4 mg/dL (0.2-1); BLOOD UREA NITROGEN 14 mg/dL (7-18); CALCIUM 8.7 mg/dL (8.5-10.1); CHLORIDE 94 mmol/L (98-107); CO2 30 mmol/L (21-32); GLUCOSE,RANDOM 108 mg/dL (74-106); POTASSIUM 4.8 mmol/L (3.5-5.1); SGOT/AST 34 U/L (15-37); SGPT/ALT 19 U/L (13-61); SODIUM 131 mmol/L (136-145); TOT PROT 6.8 g/dl (6.4-8.2)
[2018-10-01] MEDS ORDERED: ASPIRIN 300 MG SUPP.RECT PR ONE (11:22)
[2018-10-01] MEDS ORDERED: ASPIRIN 300 MG SUPP.RECT RC ONE (11:56)
--- NOTE | 2018-10-01 13:39 | CON.NEURO ---
Consult Consult Specialty:: Jyoti Referred by:: ER - History of Present Illness History of Present Illness: 58 year sold man with PMH HTN, CAD, COPD, seizure disorder, stent placed in 1999, CABG, and GERD Came in to [facility] ER with ams Polysubstance usage No seizure activity Patient with hypoxia requiring intubation No hx obtained from [facility] patient seen in the ER - History Source History Provided By: Medical Record Limitations to Obtaining History: Clinical Condition - Alcohol/Substance Use Hx Alcohol Use: Yes - Smoking History Smoking history: Current some day smoker Have you smoked in the past 12 months: Yes Aproximately how many cigarettes per day: 40 Home Medications - Allergies Allergies/Adverse Reactions: Allergies Allergy/AdvReac Type Severity Reaction Status Date / Time chlorpromazine HCl AdvReac Severe stiffness Verified 09/28/18 11:06 [From Thorazine] haloperidol [From Haldol] AdvReac Severe stiffness Verified 09/28/18 11:06 - Home Medications Home Medications: Ambulatory Orders Aspirin [ASA -] 81 mg PO DAILY 11/17/12 Esomeprazole Mag Trihydrate [Nexium] 40 mg PO DAILY 11/17/12 Albuterol Sulfate Inhaler - [Ventolin HFA Inhaler -] 2 puff IH Q4H PRN #30 inhaler 05/23/17 Amlodipine Besylate [Norvasc -] 5 mg PO DAILY #30 tab 05/23/17 Benztropine Mesylate [Cogentin -] 1 mg PO BID #60 tablet 05/23/17 Hydrochlorothiazide [Hctz -] 25 mg PO DAILY #30 tab 05/23/17 Lisinopril [Prinivil] 20 mg PO DAILY #30 tab 05/23/17 Mirtazapine [Remeron -] 30 mg PO HS #30 tablet 05/23/17 Risperidone [Risperdal -] 2 mg PO HS #30 tablet 05/23/17 levETIRAcetam [Keppra -] 500 mg PO BID 09/29/18 Naloxone HCl [Narcan] 4 mg NS ASDIR PRN 10/01/18 Family Disease History - Family Disease History Family History: Unable to Obtain Family Disease History: Other: Father (no contact), Mother (no contact) Review of Systems - Review of Systems Constitutional: reports: No Symptoms Eyes: reports: No Symptoms Physical Exam-Neuro Vital Signs: Vital Signs Temperature 99.6 F 10/01/18 07:44 Pulse Rate 70 10/01/18 12:22 Respiratory Rate 20 10/01/18 12:22 Blood Pressure 157/91 10/01/18 12:22 O2 Sat by Pulse Oximetry (%) 98 10/01/18 12:22 Constitutional: Yes: Well Nourished Neck: Yes: WNL Cardiovascular: Yes: WNL Labs: CBC, BMP 10/01/18 09:42 10/01/18 09:42 INR, PTT INR 1.01 (0.83-1.09) 10/01/18 09:42 - Neuro Exam Level Of Consciousness: Yes: Obtunded Eyes: Yes: PERRLA Dominant Hand: Right Gag: Present Response to light touch: Abnormal Response to pain prick: Abnormal Response to temperature: Abnormal Imaging - Results Cat Scan: Image Reviewed Problem List - Problems (1) Alcohol dependence with uncomplicated withdrawal Assessment/Plan: Toxic Metabolic encepahlopathy 1. Seizure precautions 2. Agree to jeff Versed 3. Start Keppra 250 mg IV q12 4 EEG Prognosis gaurded Code(s): F10.230 - ALCOHOL DEPENDENCE WITH WITHDRAWAL, UNCOMPLICATED
--- NOTE | 2018-10-01 15:28 | CON.CARD ---
Consult Consult Specialty:: Cardiology Reason for Consultation:: Positive troponins - History of Present Illness Chief Complaint: Positive troponin History of Present Illness: 58 year old male from [facility] for polysubatance abuse. PMH of HTN, CAD (Hx of CABG in the past) COPD, and Sz disorder. He was sent to the ED for altered mental status. Noted on his labs was a troponin of 0.54. EKG - NSR rate of 77 bpm, axis nmol, intervals nml, no st elevation or depression, t waves upright, LVH - Alcohol/Substance Use Hx Alcohol Use: Yes - Smoking History Smoking history: Current some day smoker Have you smoked in the past 12 months: Yes Aproximately how many cigarettes per day: 40 Home Medications - Allergies Allergies/Adverse Reactions: Allergies Allergy/AdvReac Type Severity Reaction Status Date / Time chlorpromazine HCl AdvReac Severe stiffness Verified 09/28/18 11:06 [From Thorazine] haloperidol [From Haldol] AdvReac Severe stiffness Verified 09/28/18 11:06 - Home Medications Home Medications: Ambulatory Orders Aspirin [ASA -] 81 mg PO DAILY 11/17/12 Esomeprazole Mag Trihydrate [Nexium] 40 mg PO DAILY 11/17/12 Albuterol Sulfate Inhaler - [Ventolin HFA Inhaler -] 2 puff IH Q4H PRN #30 inhaler 05/23/17 Amlodipine Besylate [Norvasc -] 5 mg PO DAILY #30 tab 05/23/17 Benztropine Mesylate [Cogentin -] 1 mg PO BID #60 tablet 05/23/17 Hydrochlorothiazide [Hctz -] 25 mg PO DAILY #30 tab 05/23/17 Lisinopril [Prinivil] 20 mg PO DAILY #30 tab 05/23/17 Mirtazapine [Remeron -] 30 mg PO HS #30 tablet 05/23/17 Risperidone [Risperdal -] 2 mg PO HS #30 tablet 05/23/17 levETIRAcetam [Keppra -] 500 mg PO BID 09/29/18 Naloxone HCl [Narcan] 4 mg NS ASDIR PRN 10/01/18 Family Disease History - Family Disease History Family Disease History: Other: Father (no contact), Mother (no contact) Vital Signs: Vital Signs Temperature 99.6 F 10/01/18 07:44 Pulse Rate 70 10/01/18 12:22 Respiratory Rate 20 10/01/18 12:22 Blood Pressure 157/91 10/01/18 12:22 O2 Sat by Pulse Oximetry (%) 98 10/01/18 12:22 Constitutional: Yes: Other (Obtunded) Respiratory: Yes: CTA Bilaterally Gastrointestinal: Yes: Soft Cardiovascular: Yes: Regular Rate and Rhythm (NL S1S2 no MRHG) JVD: No Extremities: Yes: WNL Edema: No Neurological: Yes: Confusion, Lethargy - Other Data Labs, Other Data: CBC, BMP 10/01/18 09:42 10/01/18 09:42 INR, PTT INR 1.01 (0.83-1.09) 10/01/18 09:42 Troponin, BNP 10/01/18 09:42 Troponin I 0.54 H Troponin, BNP 10/01/18 09:42 Troponin I 0.54 H Assessment/Plan 58 year old male from [facility] for polysubatance abuse. PMH of HTN, CAD (Hx of CABG in the past) COPD, and Sz disorder. He was sent to the ED for altered mental status. Noted on his labs was a troponin of 0.54. EKG - NSR rate of 77 bpm, axis nmol, intervals nml, no st elevation or depression, t waves upright, LVH Positive Troponin Most like secondary to demand ischemia Possibly related to substance abuse, such as a vasoactive substance. Would follow the troponin trend Obtain an echocardiogram Avoid Beta Blockers until cocaine metabolytes are checked HTN Continue Amlodipine Besylate [Norvasc -] 5 mg PO DAILY #30 tab 05/23/17 Hydrochlorothiazide [Hctz -] 25 mg PO DAILY #30 tab 05/23/17 Lisinopril [Prinivil] 20 mg PO DAILY #30 tab 05/23/17
--- NOTE | 2018-10-01 15:47 | EKG ---
Test Reason : Blood Pressure : / mmHG Vent. Rate : 077 BPM Atrial Rate : 077 BPM P-R Int : 158 ms QRS Dur : 108 ms QT Int : 434 ms P-R-T Axes : 048 039 044 degrees QTc Int : 491 ms NORMAL SINUS RHYTHM MODERATE VOLTAGE CRITERIA FOR LVH, MAY BE NORMAL VARIANT PROLONGED QT ABNORMAL ECG WHEN COMPARED WITH ECG OF 12-MAY-2017 09:07, MINIMAL CRITERIA FOR ANTERIOR INFARCT ARE NO LONGER PRESENT Confirmed by ANNY GUZMAN, HINA ([id number]) on 10/01/2018 3:46:45 PM Referred By: Confirmed By:HINA MCCORMICK MD
[2018-10-01 16:06] LABS: ARTERIAL BLD GAS O2 SATURATION 82.1 % (90-98.9); ARTERIAL BLOOD GAS BASE EXCESS 4.5 meq/l (-2-2); ARTERIAL BLOOD GAS PO2 57.7 mmHg (80-100)
[2018-10-01 16:07] LABS: ALLENS TEST POSITIVE
--- NOTE | 2018-10-01 17:27 | HP ---
Admitting History and Physical - Primary Care Physician PCP: Georgina Garcia - Admission History of Present Illness: The patient is a 58 year old male with a past medical history of HTN, CAD, COPD , seizure disorder, stent placed in 1999, CABG, and GERD brought in by EMS today for evaluation of altered mental status. Patient was admitted to [facility] for polysubstance abuse on 09/28/18. Patient was at baseline yesterday but was found this morning responsive to his name but unable to answer questions or follow commands. Allergies: chlorpromazine HCL, haloperidol Social history: History of polysubstance abuse (alcohol, cocaine, heroin, marijuana) PCP: Eligio Valenzuela - Past Medical History [employer]: Yes: Seizure Cardiovascular: Yes: CAD, HTN Pulmonary: Yes: COPD Gastrointestinal: Yes: GERD - Smoking History Smoking history: Current some day smoker Have you smoked in the past 12 months: Yes Aproximately how many cigarettes per day: 40 - Alcohol/Substance Use Hx Alcohol Use: Yes Home Medications - Allergies Allergies/Adverse Reactions: Allergies Allergy/AdvReac Type Severity Reaction Status Date / Time chlorpromazine HCl AdvReac Severe stiffness Verified 09/28/18 11:06 [From Thorazine] haloperidol [From Haldol] AdvReac Severe stiffness Verified 09/28/18 11:06 - Home Medications Home Medications: Ambulatory Orders Aspirin [ASA -] 81 mg PO DAILY 11/17/12 Esomeprazole Mag Trihydrate [Nexium] 40 mg PO DAILY 11/17/12 Albuterol Sulfate Inhaler - [Ventolin HFA Inhaler -] 2 puff IH Q4H PRN #30 inhaler 05/23/17 Amlodipine Besylate [Norvasc -] 5 mg PO DAILY #30 tab 05/23/17 Benztropine Mesylate [Cogentin -] 1 mg PO BID #60 tablet 05/23/17 Hydrochlorothiazide [Hctz -] 25 mg PO DAILY #30 tab 05/23/17 Lisinopril [Prinivil] 20 mg PO DAILY #30 tab 05/23/17 Mirtazapine [Remeron -] 30 mg PO HS #30 tablet 05/23/17 Risperidone [Risperdal -] 2 mg PO HS #30 tablet 05/23/17 levETIRAcetam [Keppra -] 500 mg PO BID 09/29/18 Naloxone HCl [Narcan] 4 mg NS ASDIR PRN 10/01/18 Family Disease History - Family Disease History Family Disease History: Other: Father (no contact), Mother (no contact) Physical Examination Vital Signs: Vital Signs Temperature 99.6 F 10/01/18 07:44 Pulse Rate 71 10/01/18 15:30 Respiratory Rate 20 10/01/18 15:30 Blood Pressure 178/86 H 10/01/18 15:30 O2 Sat by Pulse Oximetry (%) 94 L 10/01/18 16:30 Constitutional: Yes: No Distress HENT: Yes: Atraumatic Neck: Yes: Supple Cardiovascular: Yes: Regular Rate and Rhythm Respiratory: Yes: CTA Bilaterally Gastrointestinal: Yes: Normal Bowel Sounds Extremities: Yes: WNL Neurological: Yes: Other (intubated and sedated) Labs: CBC, BMP 10/01/18 09:42 10/01/18 09:42 Problem List - Problems (1) Alcohol dependence with uncomplicated withdrawal Code(s): F10.230 - ALCOHOL DEPENDENCE WITH WITHDRAWAL, UNCOMPLICATED (2) CAD (coronary artery disease) of artery bypass graft Code(s): I25.810 - ATHEROSCLEROSIS OF CABG W/O ANGINA PECTORIS (3) Cannabis dependence Code(s): F12.20 - CANNABIS DEPENDENCE, UNCOMPLICATED (4) Elevated troponin Code(s): R74.8 - ABNORMAL LEVELS OF OTHER SERUM ENZYMES (5) Opioid dependence with withdrawal Code(s): F11.23 - OPIOID DEPENDENCE WITH WITHDRAWAL (6) Gastroesophageal reflux disease Code(s): K21.9 - GASTRO-ESOPHAGEAL REFLUX DISEASE WITHOUT ESOPHAGITIS (7) Hypercholesterolemia Code(s): E78.0 - PURE HYPERCHOLESTEROLEMIA * DO NOT USE * (9) Schizoaffective disorder Code(s): F25.9 - SCHIZOAFFECTIVE DISORDER, UNSPECIFIED (10) Bipolar disorder Code(s): F31.9 - BIPOLAR DISORDER, UNSPECIFIED (11) Cocaine dependence Code(s): F14.20 - COCAINE DEPENDENCE, UNCOMPLICATED (12) Essential hypertension Code(s): I10 - ESSENTIAL (PRIMARY) HYPERTENSION (13) Nicotine dependence Code(s): F17.200 - NICOTINE DEPENDENCE, UNSPECIFIED, UNCOMPLICATED Assessment/Plan Laboratory Tests 10/01/18 10/01/18 10/01/18 07:57 09:42 09:42 WBC 9.0 RBC 4.17 Hgb 12.2 Hct 36.8 MCV 88.1 MCH 29.3 MCHC 33.2 RDW 16.5 H Plt Count 239 MPV 7.9 Absolute Neuts (auto) 7.5 Neutrophils % 83.9 H Lymphocytes % 9.9 Monocytes % 5.8 Eosinophils % 0.1 Basophils % 0.3 Nucleated RBC % 0 PT with INR 11.90 INR 1.01 Anticoagulation Therapy Puncture Site ABG pH ABG pCO2 at Pt Temp ABG pO2 at Pt Temp ABG HCO3 ABG O2 Sat (Measured) ABG O2 Content ABG Base Excess Oliver Test O2 Delivery Device Oxygen Flow Rate Vent Mode Vent Rate Mechanical Rate Pressure Support Vent Sodium Potassium Chloride Carbon Dioxide Anion Gap BUN Creatinine Creat Clearance w eGFR POC Glucometer 123 Random Glucose Calcium Total Bilirubin AST ALT Alkaline Phosphatase Creatine Kinase Creatine Kinase Index CK-MB (CK-2) Troponin I Total Protein Albumin 10/01/18 10/01/18 09:42 15:44 WBC RBC Hgb Hct MCV MCH MCHC RDW Plt Count MPV Absolute Neuts (auto) Neutrophils % Lymphocytes % Monocytes % Eosinophils % Basophils % Nucleated RBC % PT with INR INR Anticoagulation Therapy No Result Required. Puncture Site Right radial ABG pH 7.30 L ABG pCO2 at Pt Temp 66.0 H* ABG pO2 at Pt Temp 57.7 L ABG HCO3 31.9 H ABG O2 Sat (Measured) 82.1 L ABG O2 Content No Result Required. ABG Base Excess 4.5 H Oliver Test Positive O2 Delivery Device Nasal Oxygen Flow Rate 2l Vent Mode No Result Required. Vent Rate No Result Required. Mechanical Rate No Result Required. Pressure Support Vent No Result Required. Sodium 131 L Potassium 4.8 Chloride 94 L Carbon Dioxide 30 Anion Gap 6 L BUN 14 Creatinine 1.0 Creat Clearance w eGFR > 60 POC Glucometer Random Glucose 108 H Calcium 8.7 Total Bilirubin 0.4 AST 34 ALT 19 Alkaline Phosphatase 102 Creatine Kinase 432 H Creatine Kinase Index 0.9 CK-MB (CK-2) 3.9 H Troponin I 0.54 H Total Protein 6.8 Albumin 3.3 L Active Medications Generic Name Dose Route Start Last Admin Trade Name Freq PRN Reason Stop Dose Admin Amlodipine Besylate 5 mg 10/02/18 10:00 Norvasc - PO DAILY YFN Aspirin 81 mg 10/02/18 10:00 Asa - PO DAILY [facility] Benztropine Mesylate 1 mg 10/01/18 22:00 Cogentin - PO BID [facility] Heparin Sodium (Porcine) 5,000 unit 10/01/18 22:00 Heparin - SQ BID [facility] Hydrochlorothiazide 25 mg 10/02/18 10:00 Hctz - PO DAILY YFN Midazolam HCl 100 mg/ Sodium 100 mls @ 1 mls/hr 10/01/18 17:45 10/01/18 18:45 Chloride IVPB 10/02/18 17:44 1 mg/hr TITR YFN 1 mls/hr Administration Protocol 1 MG/HR Sodium Chloride 1,000 mls @ 125 mls/hr 10/01/18 19:16 10/01/18 19:53 Normal Saline - IV 10/02/18 03:15 125 mls/hr ASDIR STA Administration Levetiracetam 500 mg 10/01/18 22:00 Keppra - PO BID YFN Lisinopril 20 mg 10/02/18 10:00 Prinivil PO DAILY [facility] Mirtazapine 30 mg 10/01/18 22:00 Remeron - PO HS YFN Risperidone 2 mg 10/01/18 22:00 Risperdal - PO HS YFN Plan pt is intubated folllow up troponins monitor blood pressure prn ativan for withdrawl iv abx /steroids for possible aspiration dvt ppx continue home meds cc time 60 min
[2018-10-01] MEDS ORDERED: SUCCINYLCHOLINE CHLORIDE 200 MG/10 ML VIAL IVPUSH ONE ×2 (17:44→19:09)
[2018-10-01] MEDS ORDERED: ETOMIDATE 40 MG/20 ML VIAL IVPUSH ONE ×2 (17:44→19:09)
[2018-10-01] MEDS ORDERED: NALOXONE HCL 0.4 MG/ML VIAL IVPUSH ONE (17:45)
[2018-10-01] MEDS ORDERED: MIDAZOLAM 100 MG in SODIUM CHLORIDE 100 ML IVPB SCH (17:45)
[2018-10-01] MEDS ORDERED: RAPID SEQUENCE INTUBATION KIT NR ONE ×2 (17:50→18:15)
[2018-10-01] MEDS ORDERED: MIDAZOLAM IVPB ONE (18:39)
[2018-10-01] MEDS ORDERED: PROPOFOL 200 MG/20 ML VIAL IVPUSH ONE (19:07)
[2018-10-01] MEDS ORDERED: PIPERACILLIN/TAZOB 4.5 GM 4.5 GM in DEXTROSE 5%-WATER 100 ML IVPB ONE (19:16)
[2018-10-01] MEDS ORDERED: SODIUM CHLORIDE 1,000 ML IV STA (19:16)
[2018-10-01] MEDS ORDERED: PIPERACILLIN/TAZOB 4.5 GM 4.5 GM/100 ML BAG IVPB ONE (19:43)
[2018-10-01 20:29] LABS: ARTERIAL BLD GAS O2 SATURATION 97.4 % (90-98.9); ARTERIAL BLOOD GAS BASE EXCESS 4.1 meq/l (-2-2)
[2018-10-01 20:31] LABS: ALLENS TEST POSITIVE
[2018-10-01 20:32] LABS: ARTERIAL BLOOD GAS PCO2 72.2 mmHg (35-45); ARTERIAL BLOOD GAS pH 7.27 (7.35-7.45)
--- NOTE | 2018-10-01 21:20 | CONSULT ---
Consult Consult Specialty:: ICU Reason for Consultation:: AMS s/p intubation and need for cardiac monitoring. - History of Present Illness Chief Complaint: confusion History of Present Illness: 58 yo M with PMHx of HTN, CAD(stent placed in 1999), COPD, seizure disorder, CABG,GERD, and polysubstance abuse brought in by EMS today for evaluation of altered mental status. Patient was admitted to [facility] for polysubstance abuse on 09/28/18. Patient was at baseline yesterday but was found this morning responsive to his name but unable to answer questions or follow commands.In ER he was given Narcan 0.4mg x3 . Continued to be unresponsive and CT head was negative for acute IC pathology. He became progressively more hypoxic and subsequently underwent RSI and placed on versed drip for sedation. Initial labs in ER showed hyponatremia, elevated CK and troponemia. EKG was negative for ST changes. Given empiric Zosyn. Transfered to ICU for further management. 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 Cardio/Vascular: Yes: CAD, HTN Pulmonary: Yes: COPD Gastrointestinal: Yes: GERD - Past Surgical History Past Surgical History: Yes: Arthrosocopy, CABG (2 vessel 2012), Stent (1999) - Alcohol/Substance Use Hx Alcohol Use: Yes History of Substance Use: reports: Cocaine, Heroin, Marijuana - Smoking History Smoking history: Current some day smoker Have you smoked in the past 12 months: Yes Aproximately how many cigarettes per day: 40 - Social History Usual Living Arrangement: Alone History of Recent Travel: No Home Medications - Allergies Allergies/Adverse Reactions: Allergies Allergy/AdvReac Type Severity Reaction Status Date / Time chlorpromazine HCl AdvReac Severe stiffness Verified 09/28/18 11:06 [From Thorazine] haloperidol [From Haldol] AdvReac Severe stiffness Verified 09/28/18 11:06 - Home Medications Home Medications: Ambulatory Orders Aspirin [ASA -] 81 mg PO DAILY 11/17/12 Esomeprazole Mag Trihydrate [Nexium] 40 mg PO DAILY 11/17/12 Albuterol Sulfate Inhaler - [Ventolin HFA Inhaler -] 2 puff IH Q4H PRN #30 inhaler 05/23/17 Amlodipine Besylate [Norvasc -] 5 mg PO DAILY #30 tab 10/26/17 Benztropine Mesylate [Cogentin -] 1 mg PO BID #60 tablet 05/23/17 Hydrochlorothiazide [Hctz -] 25 mg PO DAILY #30 tab 05/23/17 Lisinopril [Prinivil] 20 mg PO DAILY #30 tab 05/23/17 Mirtazapine [Remeron -] 30 mg PO HS #30 tablet 05/23/17 Risperidone [Risperdal -] 2 mg PO HS #30 tablet 05/23/17 levETIRAcetam [Keppra -] 500 mg PO BID 09/29/18 Naloxone HCl [Narcan] 4 mg NS ASDIR PRN 10/01/18 Family Disease History - Family Disease History Family Disease History: Other: Father (no contact), Mother (no contact) Review of Systems Unable to obtain ROS, reason: intubated and sedated. Physical Exam Vital Signs: Vital Signs Temperature 99 F 10/01/18 15:55 Pulse Rate 88 10/01/18 20:32 Respiratory Rate 19 10/01/18 20:32 Blood Pressure 125/79 10/01/18 20:32 O2 Sat by Pulse Oximetry (%) 100 10/01/18 20:32 Constitutional: Yes: No Distress Eyes: Yes: Conjunctiva Clear, PERRL HENT: Yes: Atraumatic, Normocephalic Neck: Yes: Supple, Trachea Midline Cardiovascular: Yes: Regular Rate and Rhythm, S1, S2. No: Gallop, Murmur, Rub Respiratory: Yes: Intubated, Mechanically Ventilated, Rhonchi (bilaterally) Gastrointestinal: Yes: Normal Bowel Sounds, Soft Edema: No Peripheral Pulses WNL: Yes Neurological: Yes: Unresponsive Labs: CBC, BMP 10/01/18 09:42 10/01/18 09:42 Imaging - Results Chest X-ray: Report Reviewed, Image Reviewed (cadiomegally , no acute pathology. ) EKG: Report Reviewed, Image Reviewed (NSR rate of 77 bpm, axis nmol, intervals nml, no st elevation or depression, t waves upright, LVH) Assessment/Plan A: 58 yo M with PMHx of HTN, CAD(stent placed in 1999), COPD, seizure disorder, CABG,GERD, and polysubstance abuse brought in by EMS today for evaluation of altered mental status admitted to ICU s/p intubation and need for cardiac monitoring. PLAN: NEURO: * Intubatd and sedated. * AMS on arrival * sedation vacation of access neuro status when appropriate * CT head was negative for acute IC pathology. * Was at [facility] for detox. - will continue * sedation with Versed ggt. * H/O of siezure disorder; Neuro consult appreciated. * Siezure precautions and start Keppra 250mg IV Q12H * EEG pending. PULM: * RSI in ER * sedated with versed * mechanical ventilation in AC mode with settings of 400/12/100%/ PEEP 5 CV: * H/O CAD and HTN * Cardiology consult appreciated * Troponins elevated - most likely demand * will trend trops * avoid BB because of recent cocaine use. * CCB for BP control * continue cardiac monitoring. ID: * Empiric Zosyn in ER * Infective w/u pending * UA WNL * blood/ urine cultures pending. * CXR did not show any infiltrate or consolidation. GI: * NPO * Protonix 40mg daily PSYCH: * Continue Risperidone and Mertazapine. FEN: * NS @ 125ml/hr * E-lytes WNl continue to monitor and replete PRN * NPO PPx: * Heparin SQ 5000 u BID * PPI DISPO: Continue ICU level of care. FULL CODE>
[2018-10-01 21:27] LABS: URINE APPEARANCE CLEAR; URINE BILIRUBIN NEGATIVE (<2.0 mg/dL); URINE COLOR YELLOW; URINE GLUCOSE (UA) NEGATIVE (NEGATIVE); URINE KETONE NEGATIVE (NEGATIVE); URINE LEUK ESTERASE NEGATIVE (NEGATIVE); URINE NITRITE NEGATIVE (NEGATIVE); URINE PROTEIN NEGATIVE (NEGATIVE); URINE UROBILINOGEN NEGATIVE mg/dL (0.2-1.0)
[2018-10-01] MEDS: HEPARIN NA (PORCINE) 5,000 UNITS/ML 1ML VIAL SQ SCH (21:55)
[2018-10-01] MEDS ORDERED: levETIRAcetam 500 MG TABLET (FP) PO SCH (22:00)
[2018-10-01] MEDS: MIRTAZAPINE 15 MG TABLET (FP) PO SCH (22:34)
[2018-10-01] MEDS: risperiDONE 1 MG TABLET (FP) PO SCH (22:34)
[2018-10-01] MEDS: BENZTROPINE MESYLATE 1 MG TABLET (FP) PO SCH (22:34)
[2018-10-01] MEDS: levETIRAcetam 500 MG/5 ML INJECTION VIAL IVPB SCH (22:43)
[2018-10-01] MEDS: ACETAMINOPHEN 1000 MG/100 ML VIAL (NON FORMULARY) IVPB PRN (22:54)
[2018-10-02 06:36] LABS: BASO % 0.1 % (0-2.0); EOS % 0.1 % (0-4.5); HEMATOCRIT 29.4 % (35.4-49); HEMOGLOBIN 9.8 GM/dL (11.7-16.9); LYMPH % 5.9 % (8-40); MCHC 33.2 g/dl (32.0-35.9); MEAN CELL VOLUME 87.4 fl (80-96); MEAN PLT VOLUME 7.9 fl (7.5-11.1); MONO % 6.8 % (3.8-10.2); NEUT % 87.1 % (42.8-82.8); PLATELET COUNT 191 K/MM3 (134-434); RBC 3.37 M/mm3 (4.00-5.60); RDW 16.3 % (11.9-15.9)
[2018-10-02 07:00] LABS: ALBUMIN 2.6 g/dl (3.4-5.0); ALK PHOS 89 U/L (45-117); ANION GAP 5 MMOL/L (8-16); BILIRUBIN,TOTAL 0.4 mg/dL (0.2-1); BLOOD UREA NITROGEN 18 mg/dL (7-18); CALCIUM 7.8 mg/dL (8.5-10.1); CHLORIDE 97 mmol/L (98-107); CO2 33 mmol/L (21-32); GLUCOSE,RANDOM 97 mg/dL (74-106); POTASSIUM 4.4 mmol/L (3.5-5.1); SGOT/AST 16 U/L (15-37); SGPT/ALT 13 U/L (13-61); SODIUM 135 mmol/L (136-145); TOT PROT 5.7 g/dl (6.4-8.2)
--- NOTE | 2018-10-02 08:21 | PN ---
Physical Exam: SUBJECTIVE: Patient seen and examined patient was seen and examined. patient self extubated himself today. maintaining appropriate saturations on nasal canula. patient to be transferred to tele due to reassuring ABG. Patient remains oriented only to self. Was given ativan 2mg for agitation. OBJECTIVE: Vital Signs Period Temp Pulse Resp BP Sys/Mcclellan Pulse Ox Last 24 Hr 98.8 F-102 F 66-88 14-20 87-178/48-102 93-100 GENERAL: The patient is awake, alert, oriented to self only, in no acute distress. HEAD: Normal with no signs of trauma. EYES: PERRL, extraocular movements intact, sclera anicteric, conjunctiva clear. No ptosis. ENT: Ears normal, nares patent, oropharynx clear without exudates, moist mucous membranes. NECK: Trachea midline, full range of motion, supple. LUNGS: Breath sounds rhonchi bilaterally HEART: Regular rate and rhythm, S1, S2 without murmur, rub or gallop. ABDOMEN: Soft, nontender, nondistended, normoactive bowel sounds, no guarding, no rebound, no hepatosplenomegaly, no masses. EXTREMITIES: 2+ pulses, warm, well-perfused, no edema. NEUROLOGICAL: Cranial nerves II through XII grossly intact. Normal speech, gait not observed. PSYCH: Normal mood, normal affect. SKIN: Warm, dry, normal turgor, no rashes or lesions noted Laboratory Results - last 24 hr 10/01/18 10/01/18 10/01/18 09:42 09:42 09:42 WBC 9.0 RBC 4.17 Hgb 12.2 Hct 36.8 MCV 88.1 MCH 29.3 MCHC 33.2 RDW 16.5 H Plt Count 239 MPV 7.9 Absolute Neuts (auto) 7.5 Neutrophils % 83.9 H Lymphocytes % 9.9 Monocytes % 5.8 Eosinophils % 0.1 Basophils % 0.3 Nucleated RBC % 0 PT with INR 11.90 INR 1.01 Anticoagulation Therapy Puncture Site ABG pH ABG pCO2 at Pt Temp ABG pO2 at Pt Temp ABG HCO3 ABG O2 Sat (Measured) ABG O2 Content ABG Base Excess Oliver Test O2 Delivery Device Oxygen Flow Rate Vent Mode Vent Rate Mechanical Rate PEEP Pressure Support Vent Sodium 131 L Potassium 4.8 Chloride 94 L Carbon Dioxide 30 Anion Gap 6 L BUN 14 Creatinine 1.0 Creat Clearance w eGFR > 60 Random Glucose 108 H Calcium 8.7 Total Bilirubin 0.4 AST 34 ALT 19 Alkaline Phosphatase 102 Creatine Kinase 432 H Creatine Kinase Index 0.9 CK-MB (CK-2) 3.9 H Troponin I 0.54 H Total Protein 6.8 Albumin 3.3 L Urine Color Urine Appearance Urine pH Ur Specific [place] Urine Protein Urine Glucose (UA) Urine Ketones Urine Blood Urine Nitrite Urine Bilirubin Urine Urobilinogen Ur Leukocyte Esterase 10/01/18 10/01/18 10/01/18 15:44 19:32 19:45 WBC RBC Hgb Hct MCV MCH MCHC RDW Plt Count MPV Absolute Neuts (auto) Neutrophils % Lymphocytes % Monocytes % Eosinophils % Basophils % Nucleated RBC % PT with INR INR Anticoagulation Therapy No Result Required. Puncture Site Right radial ABG pH 7.30 L ABG pCO2 at Pt Temp 66.0 H* ABG pO2 at Pt Temp 57.7 L ABG HCO3 31.9 H ABG O2 Sat (Measured) 82.1 L ABG O2 Content No Result Required. ABG Base Excess 4.5 H Oliver Test Positive O2 Delivery Device Nasal Oxygen Flow Rate 2l Vent Mode No Result Required. Vent Rate No Result Required. Mechanical Rate No Result Required. PEEP Pressure Support Vent No Result Required. Sodium Potassium Chloride Carbon Dioxide Anion Gap BUN Creatinine Creat Clearance w eGFR Random Glucose Calcium Total Bilirubin AST ALT Alkaline Phosphatase Creatine Kinase 370 H Creatine Kinase Index 0.8 CK-MB (CK-2) 3.0 Troponin I 0.82 H* Total Protein Albumin Urine Color Yellow Urine Appearance Clear Urine pH 5.0 Ur Specific [place] 1.019 Urine Protein Negative Urine Glucose (UA) Negative Urine Ketones Negative Urine Blood Negative Urine Nitrite Negative Urine Bilirubin Negative Urine Urobilinogen Negative Ur Leukocyte Esterase Negative 10/01/18 10/02/18 10/02/18 20:24 05:30 05:30 WBC 8.0 RBC 3.37 L Hgb 9.8 L Hct 29.4 L D MCV 87.4 MCH 29.0 MCHC 33.2 RDW 16.3 H Plt Count 191 D MPV 7.9 Absolute Neuts (auto) 7.0 Neutrophils % 87.1 H Lymphocytes % 5.9 L D Monocytes % 6.8 Eosinophils % 0.1 Basophils % 0.1 Nucleated RBC % 0 PT with INR INR Anticoagulation Therapy Puncture Site Left radial ABG pH 7.27 L ABG pCO2 at Pt Temp 72.2 H* ABG pO2 at Pt Temp 106.0 H D ABG HCO3 32.2 H ABG O2 Sat (Measured) 97.4 ABG O2 Content 15.0 ABG Base Excess 4.1 H Oliver Test Positive O2 Delivery Device Vent Oxygen Flow Rate 100% Vent Mode A/c Vent Rate 12 Mechanical Rate Yes PEEP 7.0 Pressure Support Vent 400 Sodium 135 L Potassium 4.4 Chloride 97 L Carbon Dioxide 33 H Anion Gap 5 L BUN 18 Creatinine 2.0 H Creat Clearance w eGFR 34.49 Random Glucose 97 Calcium 7.8 L Total Bilirubin 0.4 AST 16 ALT 13 Alkaline Phosphatase 89 Creatine Kinase Creatine Kinase Index CK-MB (CK-2) Troponin I Total Protein 5.7 L Albumin 2.6 L Urine Color Urine Appearance Urine pH Ur Specific [place] Urine Protein Urine Glucose (UA) Urine Ketones Urine Blood Urine Nitrite Urine Bilirubin Urine Urobilinogen Ur Leukocyte Esterase Active Medications Generic Name Dose Route Start Last Admin Trade Name Branq PRN Reason Stop Dose Admin Acetaminophen 1,000 mg 10/01/18 22:46 10/01/18 22:54 Ofirmev Injection - IVPB 1,000 mg Q6H PRN Administration FEVER Amlodipine Besylate 5 mg 10/02/18 10:00 Norvasc - PO DAILY [facility] Aspirin 81 mg 10/02/18 10:00 Asa - PO DAILY [facility] Benztropine Mesylate 1 mg 10/01/18 22:00 10/01/18 22:34 Cogentin - PO Not Given BID [facility] Heparin Sodium (Porcine) 5,000 unit 10/01/18 22:00 10/01/18 21:55 Heparin - SQ 5,000 unit BID [facility] Administration Hydrochlorothiazide 25 mg 10/02/18 10:00 Hctz - PO DAILY [facility] Midazolam HCl 100 mg/ Sodium 100 mls @ 1 mls/hr 10/01/18 17:45 10/01/18 18:45 Chloride IVPB 10/02/18 17:44 1 mg/hr TITR YFN 1 mls/hr Administration Protocol 1 MG/HR Levetiracetam 500 mg 10/01/18 22:00 10/01/18 22:43 Keppra Injection - IVPB 500 mg BID YFN Administration Lisinopril 20 mg 10/02/18 10:00 Prinivil PO DAILY YFN Mirtazapine 30 mg 10/01/18 22:00 10/01/18 22:34 Remeron - PO Not Given HS YFN Risperidone 2 mg 10/01/18 22:00 10/01/18 22:34 Risperdal - PO Not Given HS YFN ASSESSMENT/PLAN: 58 yo M with PMHx of HTN, CAD(stent placed in 1999), COPD, seizure disorder,CABG ,GERD, and polysubstance abuse brought in by EMS today for evaluation of altered mental status admitted to ICU s/p intubation and need for cardiac monitoring. PLAN: NEURO: AMS on arrival. Was initially intubated; currently extubated after patient self-extubated himself. Admitted to [facility] for detox - cocaine positive in the urine toxicology History of seizure disorder Neuro consulted: vanessa started EEG pending -Continue to monitor for mental status changes -Given 2 mg of ativan for agitation -Currently restrained due to AMS PULM: Currently extubated ABG improving BD TX PRN Solu-medrol 40 mg q6hr Cardio: Hx of CAD and HTN Cardiology consulted; likely troponin increase due to demand ischemia Echo was recommended by cardiology; hold off beta blockers for now due to cocaine abuse Troponin peaked with downward trend CCB for BP control -Continue cardiac monitoring ID: Empiric ceftriaxone Infective work up pending ID consulted; appreciate their recommendations cultures pending GI: Currently NPO Protonix 40 mg daily Psych NS at 125 ml/hr Electrolytes repleted as needed NPO PPx: Heparin SQ 5000 units BID PPI Dispo: Will be transferred to floors Visit type - Emergency Visit Emergency Visit: Yes ED Registration Date: 10/01/18 Care time: The patient presented to the Emergency Department on the above date and was hospitalized for further evaluation of their emergent condition. - New Patient This patient is new to me today: Yes Date on this admission: 10/02/18 - Critical Care Critical Care patient: Yes Total Critical Care Time (in minutes): 36 Critical Care Statement: The care of this patient involved high complexity decision making to prevent further life threatening deterioration of the patient 's condition and/or to evaluate & treat vital organ system(s) failure or risk of failure. - Discharge Referral Referred to [facility] Med [facility].: No
[2018-10-02 09:27] LABS: OPIATES, URI NEGATIVE ng/ml (CUTOFF=300); PHENCYCLIDINE,URINE NEGATIVE ng/ml (CUTOFF=25); URINE AMPHETAMINES NEGATIVE ng/ml (CUTOFF=500); URINE BARBITURATES NEGATIVE ng/ml (CUTOFF=200)
[2018-10-02 09:30] LABS: COCAINE, UR POSITIVE ng/ml (CUTOFF=300); METHADONE, UR POSITIVE ng/ml (CUTOFF=300); URINE BENZODIAZEPINES POSITIVE ng/ml (CUTOFF=200)
[2018-10-02] MEDS ORDERED: LORazepam 2 MG/ML SDV VIAL ONE ×2 (09:32→15:24)
[2018-10-02] MEDS: ASPIRIN 81 MG CHEWABLE TABLETS PO SCH (09:35)
[2018-10-02] MEDS: BENZTROPINE MESYLATE 1 MG TABLET (FP) PO SCH (09:35)
[2018-10-02] MEDS: HYDROCHLOROTHIAZIDE 25 MG TABLET (FP) PO SCH (09:35)
[2018-10-02] MEDS: HEPARIN NA (PORCINE) 5,000 UNITS/ML 1ML VIAL SQ SCH ×2 (09:36→21:20)
[2018-10-02] MEDS: levETIRAcetam 500 MG/5 ML INJECTION VIAL IVPB SCH ×2 (09:37→21:20)
[2018-10-02] MEDS: amLODIPine BESYLATE 5 MG TABLET (FP) PO SCH (09:39)
[2018-10-02] MEDS: LISINOPRIL 20 MG TABLET (FP) PO SCH (09:40)
[2018-10-02] MEDS ORDERED: LORazepam 2 MG/ML SDV VIAL IVPUSH ONE ×2 (09:45→21:45)
[2018-10-02] MEDS: SODIUM CHLORIDE 1,000 ML IV SCH ×2 (11:39→13:16)
[2018-10-02] MEDS ORDERED: DEXTROSE 5%-WATER - 50 ML IVPB ONE (11:48)
[2018-10-02] MEDS ORDERED: cefTRIAXone SODIUM 1 GM VIAL ONE (11:48)
[2018-10-02] MEDS: methylPREDNISolone NA SUCC 40 MG/1 ML VIAL IVPUSH SCH ×3 (11:51→20:14)
[2018-10-02] MEDS: CEFTRIAXONE 1 GM in DEXTROSE 5%-WATER - 50 ML IVPB SCH (11:51)
[2018-10-02 12:15] LABS: ARTERIAL BLD GAS O2 SATURATION 94.3 % (90-98.9); ARTERIAL BLOOD GAS BASE EXCESS 4.1 meq/l (-2-2); ARTERIAL BLOOD GAS PCO2 63.4 mmHg (35-45); ARTERIAL BLOOD GAS PO2 73.1 mmHg (80-100); ARTERIAL BLOOD GAS pH 7.31 (7.35-7.45)
[2018-10-02 12:20] LABS: ALLENS TEST POSITIVE
--- NOTE | 2018-10-02 13:03 | PN ---
Teaching Attending Note Name of Resident: Kyler Bull ATTENDING PHYSICIAN STATEMENT I saw and evaluated the patient. I reviewed the resident's note and discussed the case with the resident. I agree with the resident's findings and plan as documented. SUBJECTIVE: Pt seen and examined in the ICU. Lethargic but arousable. Febrile to 102. OBJECTIVE: Vital Signs Period Temp Pulse Resp BP Sys/Mcclellan Pulse Ox Last 24 Hr 97.8 F-102 F 66-88 12-20 87-178/48-89 93-100 Intake & Output 09/29/18 09/30/18 10/01/18 10/02/18 23:59 23:59 23:59 23:59 Intake Total 200 1536 Output Total 600 1300 Balance -400 236 Weight 86.6 kg 86.6 kg Gen: lethargic but arousable Heart: RRR Lung: bilateral rhonchi Abd: soft, nontender Ext: no edema CBC, BMP 10/02/18 05:30 10/02/18 05:30 ABG Results ABG pH 7.31 (7.35-7.45) L 10/02/18 11:58 ABG pCO2 at Pt Temp 63.4 mmHg (35-45) H* 10/02/18 11:58 ABG pO2 at Pt Temp 73.1 mmHg (80-100) L D 10/02/18 11:58 ABG HCO3 31.0 meq/L (22-26) H 10/02/18 11:58 ABG O2 Sat (Measured) 94.3 % (90-98.9) 10/02/18 11:58 ABG O2 Content 13.2 % vol (15-22) L 10/02/18 11:58 ABG Base Excess 4.1 meq/l (-2-2) H 10/02/18 11:58 Active Medications Acetaminophen (Ofirmev Injection -) 1,000 mg IVPB Q6H PRN PRN Reason: FEVER Last Admin: 10/01/18 22:54 Dose: 1,000 mg Amlodipine Besylate (Norvasc -) 5 mg PO DAILY [facility] Last Admin: 10/02/18 09:39 Dose: Not Given Aspirin (Asa -) 81 mg PO DAILY [facility] Last Admin: 10/02/18 09:35 Dose: Not Given Benztropine Mesylate (Cogentin -) 1 mg PO BID [facility] Last Admin: 10/02/18 09:35 Dose: Not Given Heparin Sodium (Porcine) (Heparin -) 5,000 unit SQ BID [facility] Last Admin: 10/02/18 09:36 Dose: 5,000 unit Hydrochlorothiazide (Hctz -) 25 mg PO DAILY [facility] Last Admin: 10/02/18 09:35 Dose: Not Given Sodium Chloride (Normal Saline -) 1,000 mls @ 125 mls/hr IV ASDIR [facility] Last Admin: 10/02/18 11:39 Dose: Not Given Ceftriaxone Sodium 1 gm/ (Dextrose) 50 mls @ 100 mls/hr IVPB DAILY [facility] Last Admin: 10/02/18 11:51 Dose: 100 mls/hr Levetiracetam (Keppra Injection -) 500 mg IVPB BID [facility] Last Admin: 10/02/18 09:37 Dose: 500 mg Lisinopril (Prinivil) 20 mg PO DAILY [facility] Last Admin: 10/02/18 09:40 Dose: Not Given Methylprednisolone Sodium Succinate (Solu-Medrol -) 40 mg IVPUSH Q6H-IV [facility] Last Admin: 10/02/18 11:51 Dose: 40 mg Mirtazapine (Remeron -) 30 mg PO HS [facility] Last Admin: 10/01/18 22:34 Dose: Not Given Risperidone (Risperdal -) 2 mg PO HS [facility] Last Admin: 10/01/18 22:34 Dose: Not Given ASSESSMENT AND PLAN: Altered Mental Status Acute Hypercapneic Respiratory Failure Pneumonia likely Aspiration Acute COPD Exacerbation Acute Kidney Injury CAD s/p CABG +Troponins likely Demand Ischemia HTN Polysubstance Abuse Seizure Disorder - continue antibiotics - f/u cultures - start medrol - inhaled bronchodilators - O2 to keep Spo2 >90% - monitor ABG - aspiration precautions - IVF - monitor urine output, creatinine - DVT prophylaxis - can monitor on floor once mental status improved critical care time spent in reviewing chart, evaluating patient and formulating plan 35 min
[2018-10-02] MEDS ORDERED: ALBUTEROL SO4 2.5/IPRATROPIUM 0.5 INH SOL 3 ML VIAL.NEB. NEB SCH (13:30)
--- NOTE | 2018-10-02 15:06 | PN ---
Progress Note, Physician Chief Complaint: Confused History of Present Illness: 58 year old male from [facility] for polysubatance abuse. PMH of HTN, CAD (Hx of CABG in the past) COPD, and Sz disorder. He was sent to the ED for altered mental status. Noted on his labs was a troponin of 0.54. EKG - NSR rate of 77 bpm, axis nmol, intervals nml, no st elevation or depression, t waves upright, LVH 10/01/18 Required intubation for hypercapnic respiratory failure. Troponin peak of 0.82 and trending down. TOX screen positive Coocaine/Benzos/Methadone - Current Medication List Current Medications: Active Medications Acetaminophen (Ofirmev Injection -) 1,000 mg IVPB Q6H PRN PRN Reason: FEVER Last Admin: 10/01/18 22:54 Dose: 1,000 mg Albuterol/Ipratropium (Duoneb -) 1 amp NEB RQ4H [facility] Amlodipine Besylate (Norvasc -) 5 mg PO DAILY [facility] Last Admin: 10/02/18 09:39 Dose: Not Given Aspirin (Asa -) 81 mg PO DAILY [facility] Last Admin: 10/02/18 09:35 Dose: Not Given Benztropine Mesylate (Cogentin -) 1 mg PO BID [facility] Last Admin: 10/02/18 09:35 Dose: Not Given Heparin Sodium (Porcine) (Heparin -) 5,000 unit SQ BID [facility] Last Admin: 10/02/18 09:36 Dose: 5,000 unit Hydrochlorothiazide (Hctz -) 25 mg PO DAILY [facility] Last Admin: 10/02/18 09:35 Dose: Not Given Sodium Chloride (Normal Saline -) 1,000 mls @ 125 mls/hr IV ASDIR [facility] Last Admin: 10/02/18 13:16 Dose: 125 mls/hr Ceftriaxone Sodium 1 gm/ (Dextrose) 50 mls @ 100 mls/hr IVPB DAILY [facility] Last Admin: 10/02/18 11:51 Dose: 100 mls/hr Levetiracetam (Keppra Injection -) 500 mg IVPB BID [facility] Last Admin: 10/02/18 09:37 Dose: 500 mg Lisinopril (Prinivil) 20 mg PO DAILY [facility] Last Admin: 10/02/18 09:40 Dose: Not Given Methylprednisolone Sodium Succinate (Solu-Medrol -) 40 mg IVPUSH Q6H-IV [facility] Last Admin: 10/02/18 14:22 Dose: 40 mg Mirtazapine (Remeron -) 30 mg PO HS [facility] Last Admin: 10/01/18 22:34 Dose: Not Given Risperidone (Risperdal -) 2 mg PO HS [facility] Last Admin: 10/01/18 22:34 Dose: Not Given - Objective Vital Signs: Vital Signs Temperature 98.4 F 10/02/18 12:56 Pulse Rate 77 10/02/18 14:00 Respiratory Rate 14 10/02/18 14:00 Blood Pressure 141/70 10/02/18 14:00 O2 Sat by Pulse Oximetry (%) 96 10/02/18 08:45 Constitutional: Yes: Other (Lethargic) Cardiovascular: Yes: Regular Rate and Rhythm (NL S1S1 no [facility]) Respiratory: Yes: CTA Bilaterally Gastrointestinal: Yes: Soft Extremities: Yes: WNL Edema: No Neurological: Yes: Lethargy Labs: CBC, BMP 10/02/18 05:30 10/02/18 05:30 INR, PTT INR 1.01 (0.83-1.09) 10/01/18 09:42 Assessment/Plan 58 year old male from [facility] for polysubatance abuse. PMH of HTN, CAD (Hx of CABG in the past) COPD, and Sz disorder. He was sent to the ED for altered mental status. Noted on his labs was a troponin of 0.54. EKG - NSR rate of 77 bpm, axis nmol, intervals nml, no st elevation or depression, t waves upright, LVH 10/01/18 Required intubation for hypercapnic respiratory failure. Troponin peak of 0.82 and trending down. TOX screen positive Coocaine/Benzos/Methadone Positive Troponin Most like secondary to demand ischemia Possibly related to Cocaine Obtain an echocardiogram Avoid Beta Blockers secondary to cocaine use HTN Continue Amlodipine Besylate [Norvasc -] 5 mg PO DAILY #30 tab 05/23/17 Hydrochlorothiazide [Hctz -] 25 mg PO DAILY #30 tab 05/23/17 Lisinopril [Prinivil] 20 mg PO DAILY #30 tab 05/23/17 Call us prn
[2018-10-02] MEDS: LORazepam 2 MG/ML SDV VIAL IVPUSH ONE ×2 (15:27→17:34)
--- NOTE | 2018-10-02 16:05 | CON.ID ---
Consult Consult Specialty:: infectious diseases Referred by:: Reason for Consultation:: ams,cocaine abuse - History of Present Illness Chief Complaint: ams,agitation History of Present Illness: 58 yo M with PMHx of HTN, CAD(stent placed in 1999), COPD, seizure disorder,CABG ,GERD, and polysubstance abuse brought in by EMS today for evaluation of altered mental status. Patient was admitted to [facility] for polysubstance abuse on 09/28/18. Patient was at baseline yesterday but was found this morning responsive to his name but unable to answer questions or follow commands.In ER he was given Narcan 0.4mg x3 . Continued to be unresponsive and CT head was negative for acute IC pathology. He became progressively more hypoxic and subsequently underwent RSI and placed on versed drip for sedation. Initial labs in ER showed hyponatremia, elevated CK and troponemia. EKG was negative for ST changes. Given empiric Zosyn. Transfered to ICU for further management. history obtained from the charts as the patient is drowsy and has got ativan patient was intubated for resp distress ,patient self extubated himself now patient is drowsy and probably under the influence of alcohol - History Source Limitations to Obtaining History: Clinical Condition - Past Medical History [employer]: Yes: Seizure Cardio/Vascular: Yes: CAD, HTN Pulmonary: Yes: COPD Gastrointestinal: Yes: GERD - Past Surgical History Past Surgical History: Yes: Arthrosocopy, CABG (2 vessel 2012), Stent (1999) - Alcohol/Substance Use Hx Alcohol Use: Yes History of Substance Use: reports: Cocaine, Heroin, Marijuana - Smoking History Smoking history: Current some day smoker Have you smoked in the past 12 months: Yes Aproximately how many cigarettes per day: 40 - Social History Usual Living Arrangement: Alone History of Recent Travel: No Home Medications - Allergies Allergies/Adverse Reactions: Allergies Allergy/AdvReac Type Severity Reaction Status Date / Time chlorpromazine HCl AdvReac Severe stiffness Verified 09/28/18 11:06 [From Thorazine] haloperidol [From Haldol] AdvReac Severe stiffness Verified 09/28/18 11:06 - Home Medications Home Medications: Ambulatory Orders Aspirin [ASA -] 81 mg PO DAILY 11/17/12 Esomeprazole Mag Trihydrate [Nexium] 40 mg PO DAILY 11/17/12 Albuterol Sulfate Inhaler - [Ventolin HFA Inhaler -] 2 puff IH Q4H PRN #30 inhaler 05/23/17 Amlodipine Besylate [Norvasc -] 5 mg PO DAILY #30 tab 05/23/17 Benztropine Mesylate [Cogentin -] 1 mg PO BID #60 tablet 05/23/17 Hydrochlorothiazide [Hctz -] 25 mg PO DAILY #30 tab 05/23/17 Lisinopril [Prinivil] 20 mg PO DAILY #30 tab 05/23/17 Mirtazapine [Remeron -] 30 mg PO HS #30 tablet 05/23/17 Risperidone [Risperdal -] 2 mg PO HS #30 tablet 05/23/17 levETIRAcetam [Keppra -] 500 mg PO BID 09/29/18 Naloxone HCl [Narcan] 4 mg NS ASDIR PRN 10/01/18 Family Disease History - Family Disease History Family Disease History: Other: Father (no contact), Mother (no contact) Review of Systems Unable to obtain ROS, reason: unable to obtain Physical Exam Vital Signs: Vital Signs Temperature 98.4 F 10/02/18 12:56 Pulse Rate 77 10/02/18 14:00 Respiratory Rate 14 10/02/18 14:00 Blood Pressure 141/70 10/02/18 14:00 O2 Sat by Pulse Oximetry (%) 96 10/02/18 08:45 Constitutional: Yes: Other Eyes: Yes: Conjunctiva Clear Cardiovascular: Yes: Regular Rate and Rhythm Respiratory: Yes: Regular, CTA Bilaterally Gastrointestinal: Yes: Normal Bowel Sounds, Soft Musculoskeletal: Yes: WNL Extremities: Yes: Other Neurological: Yes: Confusion, Other Psychiatric: Yes: Other Labs: CBC, BMP 10/02/18 05:30 10/02/18 05:30 Imaging - Results Chest X-ray: Report Reviewed, Image Reviewed Cat Scan: Report Reviewed, Image Reviewed Assessment/Plan 58 yo M with PMHx of HTN, CAD(stent placed in 1999), COPD, seizure disorder,CABG ,GERD, and polysubstance abuse brought in by EMS today for evaluation of altered mental status admitted to ICU s/p intubation and need for cardiac monitoring. ams resp failure htn withdrawl plan continue empiric abx close watch hydration will send blood cx await for urine cx rest as per the team monitor resp status cc 40 min
[2018-10-02] MEDS: ALBUTEROL SO4 2.5/IPRATROPIUM 0.5 INH SOL 3 ML VIAL.NEB. NEB SCH ×2 (16:23→20:10)
--- NOTE | 2018-10-02 18:57 | PN ---
Progress Note, Physician History of Present Illness: agitated - Current Medication List Current Medications: Active Medications Acetaminophen (Ofirmev Injection -) 1,000 mg IVPB Q6H PRN PRN Reason: FEVER Last Admin: 10/01/18 22:54 Dose: 1,000 mg Albuterol/Ipratropium (Duoneb -) 1 amp NEB RQ4H [facility] Last Admin: 10/02/18 16:23 Dose: Not Given Amlodipine Besylate (Norvasc -) 5 mg PO DAILY [facility] Last Admin: 10/02/18 09:39 Dose: Not Given Aspirin (Asa -) 81 mg PO DAILY [facility] Last Admin: 10/02/18 09:35 Dose: Not Given Benztropine Mesylate (Cogentin -) 1 mg PO BID [facility] Last Admin: 10/02/18 09:35 Dose: Not Given Heparin Sodium (Porcine) (Heparin -) 5,000 unit SQ BID [facility] Last Admin: 10/02/18 09:36 Dose: 5,000 unit Hydrochlorothiazide (Hctz -) 25 mg PO DAILY [facility] Last Admin: 10/02/18 09:35 Dose: Not Given Sodium Chloride (Normal Saline -) 1,000 mls @ 125 mls/hr IV ASDIR [facility] Last Admin: 10/02/18 13:16 Dose: 125 mls/hr Ceftriaxone Sodium 1 gm/ (Dextrose) 50 mls @ 100 mls/hr IVPB DAILY [facility] Last Admin: 10/02/18 11:51 Dose: 100 mls/hr Levetiracetam (Keppra Injection -) 500 mg IVPB BID [facility] Last Admin: 10/02/18 09:37 Dose: 500 mg Lisinopril (Prinivil) 20 mg PO DAILY [facility] Last Admin: 10/02/18 09:40 Dose: Not Given Methylprednisolone Sodium Succinate (Solu-Medrol -) 40 mg IVPUSH Q6H-IV [facility] Last Admin: 10/02/18 14:22 Dose: 40 mg Mirtazapine (Remeron -) 30 mg PO HS [facility] Last Admin: 10/01/18 22:34 Dose: Not Given Risperidone (Risperdal -) 2 mg PO HS [facility] Last Admin: 10/01/18 22:34 Dose: Not Given - Objective Vital Signs: Vital Signs Temperature 98.9 F 10/02/18 16:00 Pulse Rate 72 10/02/18 17:35 Respiratory Rate 16 10/02/18 17:35 Blood Pressure 117/67 10/02/18 17:35 O2 Sat by Pulse Oximetry (%) 96 10/02/18 08:45 Constitutional: Yes: Calm HENT: Yes: Atraumatic Neck: Yes: Supple Cardiovascular: Yes: Regular Rate and Rhythm Respiratory: Yes: Rhonchi Gastrointestinal: Yes: Normal Bowel Sounds Extremities: Yes: WNL Edema: No Peripheral Pulses WNL: Yes Labs: CBC, BMP 10/02/18 05:30 10/02/18 05:30 INR, PTT INR 1.01 (0.83-1.09) 10/01/18 09:42 Problem List - Problems (1) Alcohol dependence with uncomplicated withdrawal Assessment/Plan: on prn ativan gets very agitated tyrese prn on librium protocol Code(s): F10.230 - ALCOHOL DEPENDENCE WITH WITHDRAWAL, UNCOMPLICATED (2) CAD (coronary artery disease) of artery bypass graft Assessment/Plan: continue cardiac meds cardiology on board Code(s): I25.810 - ATHEROSCLEROSIS OF CABG W/O ANGINA PECTORIS (3) Cannabis dependence Code(s): F12.20 - CANNABIS DEPENDENCE, UNCOMPLICATED (4) Elevated troponin Assessment/Plan: follow trend cardio note reviewed monitor Code(s): R74.8 - ABNORMAL LEVELS OF OTHER SERUM ENZYMES (5) Opioid dependence with withdrawal Code(s): F11.23 - OPIOID DEPENDENCE WITH WITHDRAWAL (6) Gastroesophageal reflux disease Code(s): K21.9 - GASTRO-ESOPHAGEAL REFLUX DISEASE WITHOUT ESOPHAGITIS (7) Hypercholesterolemia Assessment/Plan: on meds stable Code(s): E78.0 - PURE HYPERCHOLESTEROLEMIA * DO NOT USE * (9) Schizoaffective disorder Code(s): F25.9 - SCHIZOAFFECTIVE DISORDER, UNSPECIFIED (10) Bipolar disorder Code(s): F31.9 - BIPOLAR DISORDER, UNSPECIFIED (11) Cocaine dependence Code(s): F14.20 - COCAINE DEPENDENCE, UNCOMPLICATED (12) Essential hypertension Assessment/Plan: on meds monitor Code(s): I10 - ESSENTIAL (PRIMARY) HYPERTENSION (13) Nicotine dependence Code(s): F17.200 - NICOTINE DEPENDENCE, UNSPECIFIED, UNCOMPLICATED (14) Alcohol abuse Assessment/Plan: on librium prorocol Code(s): F10.10 - ALCOHOL ABUSE, UNCOMPLICATED (15) HTN (hypertension) Assessment/Plan: on meds monitor Code(s): I10 - ESSENTIAL (PRIMARY) HYPERTENSION Assessment/Plan icu 35 min
[2018-10-02] MEDS: LORazepam 2 MG/ML SDV VIAL IVPUSH PRN (20:13)
--- NOTE | 2018-10-02 20:18 | PN ---
Progress Note, Physician History of Present Illness: events noted Events notedChart reviewed Seen in the medical ICU extubated extubated himself Tested positive for cocaine received Ativan due to agitation still sedated - Current Medication List Current Medications: Active Medications Acetaminophen (Ofirmev Injection -) 1,000 mg IVPB Q6H PRN PRN Reason: FEVER Last Admin: 10/01/18 22:54 Dose: 1,000 mg Albuterol/Ipratropium (Duoneb -) 1 amp NEB RQ4H [facility] Last Admin: 10/02/18 20:10 Dose: 1 amp Amlodipine Besylate (Norvasc -) 5 mg PO DAILY [facility] Last Admin: 10/02/18 09:39 Dose: Not Given Aspirin (Asa -) 81 mg PO DAILY [facility] Last Admin: 10/02/18 09:35 Dose: Not Given Benztropine Mesylate (Cogentin -) 1 mg PO BID [facility] Last Admin: 10/02/18 09:35 Dose: Not Given Heparin Sodium (Porcine) (Heparin -) 5,000 unit SQ BID [facility] Last Admin: 10/02/18 09:36 Dose: 5,000 unit Hydrochlorothiazide (Hctz -) 25 mg PO DAILY [facility] Last Admin: 10/02/18 09:35 Dose: Not Given Sodium Chloride (Normal Saline -) 1,000 mls @ 125 mls/hr IV ASDIR [facility] Last Admin: 10/02/18 13:16 Dose: 125 mls/hr Ceftriaxone Sodium 1 gm/ (Dextrose) 50 mls @ 100 mls/hr IVPB DAILY [facility] Last Admin: 10/02/18 11:51 Dose: 100 mls/hr Levetiracetam (Keppra Injection -) 500 mg IVPB BID [facility] Last Admin: 10/02/18 09:37 Dose: 500 mg Lisinopril (Prinivil) 20 mg PO DAILY [facility] Last Admin: 10/02/18 09:40 Dose: Not Given Lorazepam (Ativan Injection -) 2 mg IVPUSH Q6H PRN PRN Reason: ANXIETY Last Admin: 10/02/18 20:13 Dose: 2 mg Methylprednisolone Sodium Succinate (Solu-Medrol -) 40 mg IVPUSH Q6H-IV [facility] Last Admin: 10/02/18 20:14 Dose: 40 mg Mirtazapine (Remeron -) 30 mg PO HS [facility] Last Admin: 10/01/18 22:34 Dose: Not Given Risperidone (Risperdal -) 2 mg PO HS [facility] Last Admin: 10/01/18 22:34 Dose: Not Given - Objective Vital Signs: Vital Signs Temperature 98.9 F 10/02/18 16:00 Pulse Rate 72 10/02/18 17:35 Respiratory Rate 16 10/02/18 17:35 Blood Pressure 117/67 10/02/18 17:35 O2 Sat by Pulse Oximetry (%) 96 10/02/18 08:45 Constitutional: Yes: Well Nourished Eyes: Yes: WNL Neurological: Yes: Alert, Oriented, Babinski negative ...Motor Strength: WNL Labs: CBC, BMP 10/02/18 05:30 10/02/18 05:30 INR, PTT INR 1.01 (0.83-1.09) 10/01/18 09:42 Problem List - Problems (1) Alcohol dependence with uncomplicated withdrawal Assessment/Plan: 1. Librium protocol via NG tube. 2. Seizure precautions. 3. Try to avoid benzodiazepine. 4. Neurologically can be moved to the floor when medically stable. Code(s): F10.230 - ALCOHOL DEPENDENCE WITH WITHDRAWAL, UNCOMPLICATED
[2018-10-02] MEDS: risperiDONE 1 MG TABLET (FP) PO SCH (21:19)
[2018-10-02] MEDS: MIRTAZAPINE 15 MG TABLET (FP) PO SCH (21:19)
[2018-10-03] MEDS: ALBUTEROL SO4 2.5/IPRATROPIUM 0.5 INH SOL 3 ML VIAL.NEB. NEB SCH ×6 (00:13→21:00)
[2018-10-03] MEDS: LORazepam 2 MG/ML SDV VIAL IVPUSH PRN ×3 (01:30→12:12)
[2018-10-03] MEDS: methylPREDNISolone NA SUCC 40 MG/1 ML VIAL IVPUSH SCH ×4 (03:02→21:00)
[2018-10-03 06:02] LABS: HEMATOCRIT 30.9 % (35.4-49); HEMOGLOBIN 10.4 GM/dL (11.7-16.9); MCH 29.1 pg (25.7-33.7); MCHC 33.6 g/dl (32.0-35.9); MEAN CELL VOLUME 86.6 fl (80-96); MEAN PLT VOLUME 8.4 fl (7.5-11.1); PLATELET COUNT 181 K/MM3 (134-434); RBC 3.57 M/mm3 (4.00-5.60); WHITE BLOOD COUNT 7.4 K/mm3 (4.0-10.0)
[2018-10-03 06:55] LABS: ALBUMIN 2.9 g/dl (3.4-5.0); ALK PHOS 86 U/L (45-117); ANION GAP 4 MMOL/L (8-16); BILIRUBIN,TOTAL 0.3 mg/dL (0.2-1); BLOOD UREA NITROGEN 15 mg/dL (7-18); CALCIUM 8.8 mg/dL (8.5-10.1); CHLORIDE 101 mmol/L (98-107); CO2 30 mmol/L (21-32); CREATININE 0.9 mg/dL (0.55-1.3); GLUCOSE,RANDOM 125 mg/dL (74-106); POTASSIUM 4.3 mmol/L (3.5-5.1); SGOT/AST 47 U/L (15-37); SGPT/ALT 22 U/L (13-61); SODIUM 136 mmol/L (136-145); TOT PROT 6.6 g/dl (6.4-8.2)
[2018-10-03] MEDS ORDERED: LORazepam 2 MG/ML SDV VIAL ONE ×2 (08:37→18:41)
[2018-10-03] MEDS ORDERED: LORazepam 2 MG/ML SDV VIAL IVPUSH ONE ×2 (09:00→18:45)
[2018-10-03] MEDS: BENZTROPINE MESYLATE 1 MG TABLET (FP) PO SCH ×2 (09:18→21:40)
[2018-10-03] MEDS: ASPIRIN 81 MG CHEWABLE TABLETS PO SCH (09:20)
[2018-10-03] MEDS: LISINOPRIL 20 MG TABLET (FP) PO SCH (09:21)
[2018-10-03] MEDS: amLODIPine BESYLATE 5 MG TABLET (FP) PO SCH (09:21)
[2018-10-03] MEDS: HYDROCHLOROTHIAZIDE 25 MG TABLET (FP) PO SCH (09:21)
[2018-10-03] MEDS: HEPARIN NA (PORCINE) 5,000 UNITS/ML 1ML VIAL SQ SCH ×2 (11:00→21:40)
[2018-10-03] MEDS ORDERED: cefTRIAXone SODIUM 1 GM VIAL ONE (12:06)
[2018-10-03] MEDS ORDERED: DEXTROSE 5%-WATER - 50 ML IVPB ONE (12:06)
[2018-10-03] MEDS: levETIRAcetam 500 MG/5 ML INJECTION VIAL IVPB SCH ×2 (12:08→21:40)
[2018-10-03] MEDS: CEFTRIAXONE 1 GM in DEXTROSE 5%-WATER - 50 ML IVPB SCH (12:09)
[2018-10-03] MEDS: SODIUM CHLORIDE 1,000 ML IV SCH (12:09)
--- NOTE | 2018-10-03 12:11 | PN ---
Teaching Attending Note Name of Resident: Kyler Bull ATTENDING PHYSICIAN STATEMENT I saw and evaluated the patient. I reviewed the resident's note and discussed the case with the resident. I agree with the resident's findings and plan as documented. SUBJECTIVE: Patient seen and examined in the ICU. Awake but agitated. Able to answer some simple questions. OBJECTIVE: Intake & Output 09/30/18 10/01/18 10/02/18 10/03/18 23:59 23:59 23:59 23:59 Intake Total 200 2936 1250 Output Total 600 1900 35 Balance -400 1036 1215 Weight 190 lb 14.725 oz 190 lb 14.725 oz Last Vital Signs Temp Pulse Resp BP Pulse Ox 97.5 F L 80 17 168/98 97 10/03/18 07:18 10/03/18 11:00 10/03/18 11:00 10/03/18 11:00 10/03/18 07:18 Active Medications Acetaminophen (Ofirmev Injection -) 1,000 mg IVPB Q6H PRN PRN Reason: FEVER Last Admin: 10/01/18 22:54 Dose: 1,000 mg Albuterol/Ipratropium (Duoneb -) 1 amp NEB RQ4H [facility] Last Admin: 10/03/18 11:22 Dose: 1 amp Amlodipine Besylate (Norvasc -) 5 mg PO DAILY [facility] Last Admin: 10/03/18 09:21 Dose: Not Given Aspirin (Asa -) 81 mg PO DAILY [facility] Last Admin: 10/03/18 09:20 Dose: Not Given Benztropine Mesylate (Cogentin -) 1 mg PO BID [facility] Last Admin: 10/03/18 09:18 Dose: Not Given Heparin Sodium (Porcine) (Heparin -) 5,000 unit SQ BID [facility] Last Admin: 10/03/18 11:00 Dose: 5,000 unit Hydrochlorothiazide (Hctz -) 25 mg PO DAILY [facility] Last Admin: 10/03/18 09:21 Dose: Not Given Sodium Chloride (Normal Saline -) 1,000 mls @ 125 mls/hr IV ASDIR [facility] Last Admin: 10/03/18 12:09 Dose: Not Given Ceftriaxone Sodium 1 gm/ (Dextrose) 50 mls @ 100 mls/hr IVPB DAILY [facility] Last Admin: 10/03/18 12:09 Dose: 100 mls/hr Levetiracetam (Keppra Injection -) 500 mg IVPB BID [facility] Last Admin: 10/03/18 12:08 Dose: 500 mg Lisinopril (Prinivil) 20 mg PO DAILY [facility] Last Admin: 10/03/18 09:21 Dose: Not Given Lorazepam (Ativan Injection -) 2 mg IVPUSH Q6H PRN PRN Reason: ANXIETY Last Admin: 10/03/18 06:40 Dose: 2 mg Methylprednisolone Sodium Succinate (Solu-Medrol -) 40 mg IVPUSH Q6H-IV [facility] Last Admin: 10/03/18 09:20 Dose: Not Given Mirtazapine (Remeron -) 30 mg PO HS [facility] Last Admin: 10/02/18 21:19 Dose: Not Given Risperidone (Risperdal -) 2 mg PO HS [facility] Last Admin: 10/02/18 21:19 Dose: Not Given Gen: Awake, agitated Heart: RRR Lung: scattered bilateral rhonchi Abd: soft, nontender Ext: no edema Laboratory Results - last 24 hr 10/02/18 10/02/18 10/03/18 11:58 20:00 05:30 WBC 7.4 RBC 3.57 L Hgb 10.4 L Hct 30.9 L MCV 86.6 MCH 29.1 MCHC 33.6 RDW 16.0 H Plt Count 181 MPV 8.4 Anticoagulation Therapy No Result Required. Puncture Site Right radial ABG pH 7.31 L ABG pCO2 at Pt Temp 63.4 H* ABG pO2 at Pt Temp 73.1 L D ABG HCO3 31.0 H ABG O2 Sat (Measured) 94.3 ABG O2 Content 13.2 L ABG Base Excess 4.1 H Oliver Test Positive O2 Delivery Device No Result Required. Oxygen Flow Rate Yes Vent Mode No Result Required. Vent Rate No Result Required. Mechanical Rate No Result Required. Pressure Support Vent No Result Required. Sodium Potassium Chloride Carbon Dioxide Anion Gap BUN Creatinine Creat Clearance w eGFR Random Glucose Calcium Total Bilirubin AST ALT Alkaline Phosphatase Creatine Kinase 990 H Creatine Kinase Index 0.6 CK-MB (CK-2) 6.6 H Troponin I 0.86 H* Total Protein Albumin 10/03/18 05:30 WBC RBC Hgb Hct MCV MCH MCHC RDW Plt Count MPV Anticoagulation Therapy Puncture Site ABG pH ABG pCO2 at Pt Temp ABG pO2 at Pt Temp ABG HCO3 ABG O2 Sat (Measured) ABG O2 Content ABG Base Excess Oliver Test O2 Delivery Device Oxygen Flow Rate Vent Mode Vent Rate Mechanical Rate Pressure Support Vent Sodium 136 Potassium 4.3 Chloride 101 Carbon Dioxide 30 Anion Gap 4 L BUN 15 Creatinine 0.9 Creat Clearance w eGFR > 60 Random Glucose 125 H Calcium 8.8 Total Bilirubin 0.3 AST 47 H ALT 22 Alkaline Phosphatase 86 Creatine Kinase 1136 H Creatine Kinase Index 0.5 CK-MB (CK-2) 5.8 H Troponin I 0.78 H* Total Protein 6.6 Albumin 2.9 L ASSESSMENT AND PLAN: Altered Mental Status Acute Hypercapneic Respiratory Failure Pneumonia likely Aspiration Acute COPD Exacerbation Acute Kidney Injury CAD s/p CABG +Troponins likely Demand Ischemia HTN Polysubstance Abuse Seizure Disorder - continue antibiotics - f/u cultures - Medrol - inhaled bronchodilators - O2 to keep Spo2 >90% - aspiration precautions - IVF - monitor urine output, creatinine - DVT prophylaxis - Cardiac Telemetry monitoring Dr Katz
--- NOTE | 2018-10-03 12:19 | PN ---
Progress Note, Physician History of Present Illness: more agitated still drowsy - Current Medication List Current Medications: Active Medications Acetaminophen (Ofirmev Injection -) 1,000 mg IVPB Q6H PRN PRN Reason: FEVER Last Admin: 10/01/18 22:54 Dose: 1,000 mg Albuterol/Ipratropium (Duoneb -) 1 amp NEB RQ4H [facility] Last Admin: 10/03/18 11:22 Dose: 1 amp Amlodipine Besylate (Norvasc -) 5 mg PO DAILY [facility] Last Admin: 10/03/18 09:21 Dose: Not Given Aspirin (Asa -) 81 mg PO DAILY [facility] Last Admin: 10/03/18 09:20 Dose: Not Given Benztropine Mesylate (Cogentin -) 1 mg PO BID [facility] Last Admin: 10/03/18 09:18 Dose: Not Given Heparin Sodium (Porcine) (Heparin -) 5,000 unit SQ BID [facility] Last Admin: 10/03/18 11:00 Dose: 5,000 unit Hydrochlorothiazide (Hctz -) 25 mg PO DAILY [facility] Last Admin: 10/03/18 09:21 Dose: Not Given Sodium Chloride (Normal Saline -) 1,000 mls @ 125 mls/hr IV ASDIR [facility] Last Admin: 10/03/18 12:09 Dose: Not Given Ceftriaxone Sodium 1 gm/ (Dextrose) 50 mls @ 100 mls/hr IVPB DAILY [facility] Last Admin: 10/03/18 12:09 Dose: 100 mls/hr Levetiracetam (Keppra Injection -) 500 mg IVPB BID [facility] Last Admin: 10/03/18 12:08 Dose: 500 mg Lisinopril (Prinivil) 20 mg PO DAILY [facility] Last Admin: 10/03/18 09:21 Dose: Not Given Lorazepam (Ativan Injection -) 2 mg IVPUSH Q6H PRN PRN Reason: ANXIETY Last Admin: 10/03/18 12:12 Dose: 2 mg Methylprednisolone Sodium Succinate (Solu-Medrol -) 40 mg IVPUSH Q6H-IV [facility] Last Admin: 10/03/18 09:20 Dose: Not Given Mirtazapine (Remeron -) 30 mg PO HS [facility] Last Admin: 10/02/18 21:19 Dose: Not Given Risperidone (Risperdal -) 2 mg PO HS [facility] Last Admin: 10/02/18 21:19 Dose: Not Given - Objective Vital Signs: Vital Signs Temperature 97.5 F L 10/03/18 07:18 Pulse Rate 80 10/03/18 11:00 Respiratory Rate 17 10/03/18 11:00 Blood Pressure 168/98 10/03/18 11:00 O2 Sat by Pulse Oximetry (%) 97 10/03/18 07:18 Constitutional: Yes: Other Eyes: Yes: Conjunctiva Clear Cardiovascular: Yes: Regular Rate and Rhythm Respiratory: Yes: Regular, CTA Bilaterally Gastrointestinal: Yes: Normal Bowel Sounds, Soft Musculoskeletal: Yes: WNL Extremities: Yes: WNL Neurological: Yes: Other (drowsy) Psychiatric: Yes: Other Labs: CBC, BMP 10/03/18 05:30 10/03/18 05:30 INR, PTT INR 1.01 (0.83-1.09) 10/01/18 09:42 Assessment/Plan 58 yo M with PMHx of HTN, CAD(stent placed in 1999), COPD, seizure disorder,CABG ,GERD, and polysubstance abuse brought in by EMS today for evaluation of altered mental status admitted to ICU s/p intubation and need for cardiac monitoring. ams resp failure htn withdrawl plan continue empiric abx close watch hydration will send blood cx await for urine cx rest as per the team monitor resp status will stop abx once patient is completely with it
[2018-10-03] MEDS ORDERED: PT OWN MED DRAWER 7, Y5N ONE ×2 (12:30→21:41)
--- NOTE | 2018-10-03 13:17 | CONSULT ---
Admitting History and Physical - Past Medical History CLOUD SECURITY ARCHITECT: Yes: Seizure Cardiovascular: Yes: CAD, HTN Pulmonary: Yes: COPD Gastrointestinal: Yes: GERD - Past Surgical History Past Surgical History: Yes: Arthrosocopy, CABG (2 vessel 2012), Stent (1999) - Smoking History Smoking history: Current some day smoker Have you smoked in the past 12 months: Yes Aproximately how many cigarettes per day: 40 - Alcohol/Substance Use Hx Alcohol Use: Yes History of Substance Use: reports: Cocaine, Heroin, Marijuana - Social History History of Recent Travel: No History - Admission Reason For Visit: ELEVATED TROPONIN LEVEL - Hearing Hearing: Normal Speech Evaluation - Communication Primary Language: KYRGYZ Communication: Yes: Simple Responses (pt requires verbally prompting to remain alert and oriented.) Oral Expression Ability: Yes: Moderate Impairment (secondary to AMS) - Speech Production Dysarthria: Yes: Flaccid Apraxia: No Able to Make Needs Known: Yes: Moderately Impaired (secondary to AMS) Intelligibility: Yes: Mildly Impaired - Speech Characteristics Voice Loudness: Mildly Loud Voice Pitch: Yes: Normal Voice Phonatory-based Quality: Yes: Hoarse, Breathy, Quivering Speech Pattern: Impaired Speech Clarity: < 50% Nasal Resonance: Normal Articulation: Yes: Precise Rate of Speech: Too Slow Voice, Other Observations: Yes: Mouth Breathing Voice Comment: Breathy turbulant - Language/Auditory Comprehension Follows: Yes: 1 Stage Simple Commands (WFL when awake) Observation: Able to respond to yes/no queries: Yes, Yes/No Confusion: Yes, Comprehends Conversational Speech: Yes, Benefits from Slow Speech: Yes, Benefits from Repetiton: Yes, Benefits from Increased Volume of Speech: Yes - Language/Verbal Expression Able to Respond to Simple Queries: Yes: Mildly Impaired (pt had difficulty remaining A&O) Able to Communicate Wants and Needs: Yes: Mildly Impaired Functional Communication Status: Yes: Mildly Impaired Aware of Errors: No Attempts to Correct Errors: No Use of Gestures: No Written Expression: not examined Oral Expression: disordered Reading Comprehension: not examined Calculations: not examined Attention: Yes: Moderate Impairment - Memory/Perception prison Memory: Yes: Moderately Impaired Short Term Memory: Yes: Moderately Impaired - Swallow Evaluation/Bedside Assessment Current Nutritional Intake: NPO (pending swallow eval) Oral Secretions: Yes: Halitosis, Dryness Tracheostomy Present: No Patient on Ventilator: No Dentition: Yes: Adequate (condition fair) Facial Symmetry at Rest: Symmetrical Facial Symmetry on Retraction: Symmetrical Facial Movement: Controlled Sensation: Normal Facial Comment: WIRE DROPPER unable to complete oral motor secondary to AMS but appears WFL Jaw Position: Open at Rest Lips, Comment: MANAGER USER INTERFACE but appears WFL for speech and swallowing purposes. Lingual Movement: Normal Lingual Speed of Movement: Normal Lingual Comment: MANAGER USER INTERFACE but appears WFL for speech and swallowing purposes. Gag Reflex: Strong Bite Reflex: Present Velopharyngeal Movement: Normal Laryngeal Elevation: WFL Laryngeal Movement: Able to Palpate Needs Assistance: Yes Rate of Intake: Slow/Holding Bolus Size: WFL Labial Seal: WFL Chewing: WFL Oral Prep Time: Increased A-P Transit: WFL Pocketing: Clears Independently Timing of Swallow: Delayed Coughing/Throat Clear: Yes (After swallows of thin liquids) Change in Voice: No Other Findings/Remarks: 58 yo male seen at bedside for swallow eval to r/o dysphagia. Pt presents as verbal, A&Ox1 with difficultly remaining awake at bedside. Responsive to gentle tactile and auditory stimuli. PHMX includes HPB, COPD, GERD, Bipolar, Scz, drug abuse. Admitted for AMS. WIRE DROPPER could not complete oral motor exam secondary to AMS. Pt self extubated last night. Vocal quality is reduced characterized as breathy. Airway protection appears adequate. Pt coughs and clears his throat independently. Pt given po trials of pureed only with full assistance revealed reduced oral preparation phase (pt would fall asleep just prior to po trials). Once awake, reduced oral phase observed ( poor security officers and guards of bolus), A-P transports appears WFL. Pharyngeal swallow are slightly delayed 2-3 seconds average) No changes in voicing observed but occasional throat clearing and subtle cough observed). Pt given po trials of ice chips and thin liquids with total assistance revealed reduced receptive, reduced bolus containment, WFL A-P transport. Pharyngeal swallow are slightly delayed 2-3 seconds average) No changes in voicing observed but occasional throat clearing and subtle cough observed). Recommendations - Speech Evaluation, Impression/Plan Impression: 58 yo male presents with mild to moderate oral prep, oral phase dysphagia for solids and thin liquids at bedside. Pharyngeal swallow are also delayed 2-3 seconds with throat clears which could indicate possible aspiration. No change in respiration or vocing at bedside at this time. Fabric Awning Repairer Goals: tolerate the least restrictive diet without s/s of aspiration Short Term Goals: tolerate pureed and thicken liquids without s/s of aspiration. - Dysphagia Impressions/Plan Swallowing Skills: Impaired (oral prep, oral and pharyngeal phase dysphagia.) Dysphagia Impressions: Mild Impairment, Risk of Aspiration *Silent aspiration: cannot be R/O at bedside Dysphagia Treatment Plan: Small Bites, Trial Feedings (Puree with nectar thicken liquids when pt is awake.), Safe Rate, 1/2 tsp. at a time, Elevate HOB during feed, Other (remain upright 30 -60 minutes after feeding. Monitor pulmonary status and nutritional intake. PT MUST be AWAKE and ALERT BEFORE po attempts.) Dysphagia Evaluation Summary: Trial puree with nectar thicken liquids via cup when pt is awake as tolerated. Observe standard aspiration precautions. Provide oral care after meals. Crush medication for safe swallowing. Results given verbally to charge operator and PCP via chart. WIRE DROPPER to follow up for diet tolerance and possible diet upgrade when mental status improves. - Recommendations Diet Consistency: Dysphagia Pureed Medication Administration: Crushed with applesauce Liquids: Juncal Thick
--- NOTE | 2018-10-03 14:17 | EKG ---
Test Reason : Blood Pressure : / mmHG Vent. Rate : 075 BPM Atrial Rate : 075 BPM P-R Int : 142 ms QRS Dur : 110 ms QT Int : 448 ms P-R-T Axes : 058 072 056 degrees QTc Int : 500 ms NORMAL SINUS RHYTHM WITH SINUS ARRHYTHMIA MINIMAL VOLTAGE CRITERIA FOR LVH, MAY BE NORMAL VARIANT PROLONGED QT ABNORMAL ECG WHEN COMPARED WITH ECG OF 01-OCT-2018 08:35, NO SIGNIFICANT CHANGE WAS FOUND Confirmed by KOMAL JOY MD ([id number]) on 10/03/2018 2:16:25 PM Referred By: Confirmed By:KOMAL JOY MD
--- NOTE | 2018-10-03 14:42 | PN ---
Physical Exam: SUBJECTIVE: Patient seen and examined patient seen and examined by me. denies pain. denies fever, chills, SOB, and chest pain. continues to have confusion this AM with orientation to self only. OBJECTIVE: Vital Signs Period Temp Pulse Resp BP Sys/Mcclellan Pulse Ox Last 24 Hr 97.5 F-98.9 F 72-81 15-22 117-179/65-98 96-97 GENERAL: The patient is awake, alert, and oriented to self only in no acute distress. HEAD: Normal with no signs of trauma. EYES: PERRL, extraocular movements intact, sclera anicteric, conjunctiva clear. No ptosis. ENT: Ears normal, nares patent, oropharynx clear without exudates, moist mucous membranes. NECK: Trachea midline, full range of motion, supple. LUNGS: Breath sounds equal, clear to auscultation bilaterally, no wheezes, no crackles, no accessory muscle use. HEART: Regular rate and rhythm, S1, S2 without murmur, rub or gallop. ABDOMEN: Soft, nontender, nondistended, normoactive bowel sounds, no guarding, no rebound, no hepatosplenomegaly, no masses. EXTREMITIES: 2+ pulses, warm, well-perfused, no edema. NEUROLOGICAL: Cranial nerves II through XII grossly intact. Normal speech, gait not observed. PSYCH: Normal mood, normal affect. SKIN: Warm, dry, normal turgor, no rashes or lesions noted Laboratory Results - last 24 hr 10/02/18 10/03/18 10/03/18 20:00 05:30 05:30 WBC 7.4 RBC 3.57 L Hgb 10.4 L Hct 30.9 L MCV 86.6 MCH 29.1 MCHC 33.6 RDW 16.0 H Plt Count 181 MPV 8.4 Sodium 136 Potassium 4.3 Chloride 101 Carbon Dioxide 30 Anion Gap 4 L BUN 15 Creatinine 0.9 Creat Clearance w eGFR > 60 Random Glucose 125 H Calcium 8.8 Total Bilirubin 0.3 AST 47 H ALT 22 Alkaline Phosphatase 86 Creatine Kinase 990 H 1136 H Creatine Kinase Index 0.6 0.5 CK-MB (CK-2) 6.6 H 5.8 H Troponin I 0.86 H* 0.78 H* Total Protein 6.6 Albumin 2.9 L Active Medications Generic Name Dose Route Start Last Admin Trade Name Freq PRN Reason Stop Dose Admin Acetaminophen 1,000 mg 10/01/18 22:46 10/01/18 22:54 Ofirmev Injection - IVPB 1,000 mg Q6H PRN Administration FEVER Albuterol/Ipratropium 1 amp 10/02/18 13:30 10/03/18 11:22 Duoneb - NEB 1 amp RQ4H YFN Administration Amlodipine Besylate 5 mg 10/02/18 10:00 10/03/18 09:21 Norvasc - PO Not Given DAILY YFN Aspirin 81 mg 10/02/18 10:00 10/03/18 09:20 Asa - PO Not Given DAILY YFN Benztropine Mesylate 1 mg 10/01/18 22:00 10/03/18 09:18 Cogentin - PO Not Given BID YFN Heparin Sodium (Porcine) 5,000 unit 10/01/18 22:00 10/03/18 11:00 Heparin - SQ 5,000 unit BID YFN Administration Hydrochlorothiazide 25 mg 10/02/18 10:00 10/02/18 09:35 Hctz - PO Not Given DAILY YFN Sodium Chloride 1,000 mls @ 125 mls/hr 10/02/18 11:45 10/03/18 12:09 Normal Saline - IV Not Given ASDIR YFN Ceftriaxone Sodium 1 gm/ 50 mls @ 100 mls/hr 10/02/18 11:45 10/03/18 12:09 Dextrose IVPB 100 mls/hr DAILY YFN Administration Levetiracetam 500 mg 10/01/18 22:00 10/03/18 12:08 Keppra Injection - IVPB 500 mg BID YFN Administration Lisinopril 20 mg 10/02/18 10:00 10/03/18 09:21 Prinivil PO Not Given DAILY YFN Lorazepam 2 mg 10/02/18 19:08 10/03/18 12:12 Ativan Injection - IVPUSH 2 mg Q6H PRN Administration ANXIETY Methylprednisolone Sodium Succinate 40 mg 10/02/18 11:45 10/03/18 09:20 Solu-Medrol - IVPUSH Not Given Q6H-IV YFN Mirtazapine 30 mg 10/01/18 22:00 10/02/18 21:19 Remeron - PO Not Given HS YFN Risperidone 2 mg 10/01/18 22:00 10/02/18 21:19 Risperdal - PO Not Given HS [facility] ASSESSMENT/PLAN: 58 yo M with PMHx of HTN, CAD(stent placed in 1999), COPD, seizure disorder,CABG ,GERD, and polysubstance abuse brought in by EMS today for evaluation of altered mental status admitted to ICU s/p intubation and need for cardiac monitoring. PLAN: NEURO: AMS on arrival. Was initially intubated; currently extubated after patient self-extubated himself. Admitted to [facility] for detox - cocaine positive in the urine toxicology History of seizure disorder Neuro consulted: kekaminira started EEG pending -Continue to monitor for mental status changes -Currently restrained due to AMS PULM: Currently extubated BD TX PRN Solu-medrol 40 mg q6hr Cardio: Hx of CAD and HTN Cardiology consulted; likely troponin increase due to demand ischemia Echo was recommended by cardiology; hold off beta blockers for now due to cocaine abuse Troponin peaked with downward trend CCB for BP control -Continue cardiac monitoring -Trops trending; repeat trop shows downward trend. no symptomatic complaints ID: Empiric ceftriaxone Infective work up pending ID consulted; appreciate their recommendations cultures pending GI: Swallow/speech consult pending Protonix 40 mg daily Psych NS at 125 ml/hr Electrolytes repleted as needed NPO PPx: Heparin SQ 5000 units BID PPI Dispo: Will be transferred to tele Visit type - Emergency Visit Emergency Visit: Yes ED Registration Date: 10/01/18 Care time: The patient presented to the Emergency Department on the above date and was hospitalized for further evaluation of their emergent condition. - New Patient This patient is new to me today: No - Critical Care Critical Care patient: Yes Total Critical Care Time (in minutes): 36 Critical Care Statement: The care of this patient involved high complexity decision making to prevent further life threatening deterioration of the patient 's condition and/or to evaluate & treat vital organ system(s) failure or risk of failure. - Discharge Referral Referred to [facility] Med P.C.: No
[2018-10-03] MEDS ORDERED: METOPROLOL TARTRATE 5 MG/5 ML VIAL IVPUSH ONE (14:48)
[2018-10-03] MEDS ORDERED: LORazepam 2 MG/ML SDV VIAL IVPUSH PRN (16:08)
[2018-10-03] MEDS ORDERED: LABETALOL HCL 5 MG/1 ML (100MG/20 ML VIAL) IVPUSH ONE (17:00)
[2018-10-03] MEDS ORDERED: LORazepam 1 MG TABLET PO PRN (17:14)
--- NOTE | 2018-10-03 17:27 | HOSP ---
Physical Examination Vital Signs: Vital Signs Temperature 97.5 F L 10/03/18 07:18 Pulse Rate 78 10/03/18 16:40 Respiratory Rate 23 H 10/03/18 16:40 Blood Pressure 174/93 H 10/03/18 16:40 O2 Sat by Pulse Oximetry (%) 97 10/03/18 07:18 Labs: CBC, BMP 10/03/18 05:30 10/03/18 05:30 Hospitalist Encounter Assessment: Pt exhibiting signs of withdrawal. Climbing out of bed. Confused. Hypertensive. Will initiate Librium protocol as per neuro recs. Visit type - Emergency Visit Emergency Visit: No - New Patient This patient is new to me today: No - Critical Care Critical Care patient: Yes Total Critical Care Time (in minutes): 35 Critical Care Statement: The care of this patient involved high complexity decision making to prevent further life threatening deterioration of the patient 's condition and/or to evaluate & treat vital organ system(s) failure or risk of failure.
[2018-10-03] MEDS ORDERED: chlordiazePOXIDE HCL 25 MG CAPSULE ONE (20:49)
[2018-10-03] MEDS: MIRTAZAPINE 15 MG TABLET (FP) PO SCH (21:40)
[2018-10-03] MEDS: risperiDONE 1 MG TABLET (FP) PO SCH (21:40)
[2018-10-03] MEDS ORDERED: NIFEdipine 10 MG CAPSULE (FP) PO SCH (22:00)
[2018-10-03] MEDS ORDERED: chlordiazePOXIDE HCL 25 MG CAPSULE PO ONE (23:27)
--- NOTE | 2018-10-03 23:43 | PN ---
Progress Note, Physician History of Present Illness: agitated - Current Medication List Current Medications: Active Medications Acetaminophen (Ofirmev Injection -) 1,000 mg IVPB Q6H PRN PRN Reason: FEVER Last Admin: 10/01/18 22:54 Dose: 1,000 mg Albuterol/Ipratropium (Duoneb -) 1 amp NEB RQ4H [facility] Last Admin: 10/03/18 21:00 Dose: 1 amp Amlodipine Besylate (Norvasc -) 5 mg PO DAILY [facility] Last Admin: 10/03/18 09:21 Dose: Not Given Aspirin (Asa -) 81 mg PO DAILY [facility] Last Admin: 10/03/18 09:20 Dose: Not Given Benztropine Mesylate (Cogentin -) 1 mg PO BID [facility] Last Admin: 10/03/18 09:18 Dose: Not Given Heparin Sodium (Porcine) (Heparin -) 5,000 unit SQ BID [facility] Last Admin: 10/03/18 11:00 Dose: 5,000 unit Hydrochlorothiazide (Hctz -) 25 mg PO DAILY [facility] Last Admin: 10/02/18 09:35 Dose: Not Given Sodium Chloride (Normal Saline -) 1,000 mls @ 125 mls/hr IV ASDIR [facility] Last Admin: 10/03/18 12:09 Dose: Not Given Ceftriaxone Sodium 1 gm/ (Dextrose) 50 mls @ 100 mls/hr IVPB DAILY [facility] Last Admin: 10/03/18 12:09 Dose: 100 mls/hr Levetiracetam (Keppra Injection -) 500 mg IVPB BID [facility] Last Admin: 10/03/18 12:08 Dose: 500 mg Lisinopril (Prinivil) 20 mg PO DAILY [facility] Last Admin: 10/03/18 09:21 Dose: Not Given Methylprednisolone Sodium Succinate (Solu-Medrol -) 40 mg IVPUSH Q6H-IV [facility] Last Admin: 10/03/18 14:56 Dose: 40 mg Mirtazapine (Remeron -) 30 mg PO HS [facility] Last Admin: 10/02/18 21:19 Dose: Not Given Risperidone (Risperdal -) 2 mg PO HS [facility] Last Admin: 10/02/18 21:19 Dose: Not Given - Objective Vital Signs: Vital Signs Temperature 97.5 F L 10/03/18 07:18 Pulse Rate 78 10/03/18 16:40 Respiratory Rate 23 H 10/03/18 16:40 Blood Pressure 174/93 H 10/03/18 16:40 O2 Sat by Pulse Oximetry (%) 97 10/03/18 07:18 HENT: Yes: Atraumatic Neck: Yes: Supple Cardiovascular: Yes: Regular Rate and Rhythm Respiratory: Yes: Rhonchi Gastrointestinal: Yes: Normal Bowel Sounds Extremities: Yes: WNL Edema: No Peripheral Pulses WNL: Yes Neurological: Yes: Confusion Labs: CBC, BMP 10/03/18 05:30 10/03/18 05:30 INR, PTT INR 1.01 (0.83-1.09) 10/01/18 09:42 Problem List - Problems (1) Alcohol dependence with uncomplicated withdrawal Assessment/Plan: on prn ativan gets very agitated tyrese prn on librieum protocol Code(s): F10.230 - ALCOHOL DEPENDENCE WITH WITHDRAWAL, UNCOMPLICATED (2) CAD (coronary artery disease) of artery bypass graft Assessment/Plan: continue cardiac meds cardiology on board Code(s): I25.810 - ATHEROSCLEROSIS OF CABG W/O ANGINA PECTORIS (3) Cannabis dependence Code(s): F12.20 - CANNABIS DEPENDENCE, UNCOMPLICATED (4) Elevated troponin Assessment/Plan: follow [facility] cardio note reviewed monitor Code(s): R74.8 - ABNORMAL LEVELS OF OTHER SERUM ENZYMES (5) Opioid dependence with withdrawal Code(s): F11.23 - OPIOID DEPENDENCE WITH WITHDRAWAL (6) Gastroesophageal reflux disease Code(s): K21.9 - GASTRO-ESOPHAGEAL REFLUX DISEASE WITHOUT ESOPHAGITIS (7) Hypercholesterolemia Code(s): E78.0 - PURE HYPERCHOLESTEROLEMIA * DO NOT USE * (9) Schizoaffective disorder Code(s): F25.9 - SCHIZOAFFECTIVE DISORDER, UNSPECIFIED (10) Bipolar disorder Code(s): F31.9 - BIPOLAR DISORDER, UNSPECIFIED (11) Cocaine dependence Code(s): F14.20 - COCAINE DEPENDENCE, UNCOMPLICATED (12) Essential hypertension Assessment/Plan: on meds monitor Code(s): I10 - ESSENTIAL (PRIMARY) HYPERTENSION (13) Nicotine dependence Code(s): F17.200 - NICOTINE DEPENDENCE, UNSPECIFIED, UNCOMPLICATED
[2018-10-03] MEDS ORDERED: LORazepam 2 MG/ML SDV VIAL IM PRN (23:48)
[2018-10-04] MEDS: ALBUTEROL SO4 2.5/IPRATROPIUM 0.5 INH SOL 3 ML VIAL.NEB. NEB SCH ×6 (00:15→20:09)
[2018-10-04] MEDS: methylPREDNISolone NA SUCC 40 MG/1 ML VIAL IVPUSH SCH ×4 (02:39→21:49)
[2018-10-04] MEDS: chlordiazePOXIDE HCL 25 MG CAPSULE PO SCH ×3 (07:20→17:00)
--- NOTE | 2018-10-04 08:47 | PN ---
Progress Note (short form) - Note Progress Note: PULM/CCM SUBJECTIVE: Patient seen and examined in the ICU. -agitated delerium -getting librium, restrained OBJECTIVE: Vital Signs Temp 97.6 F 10/04/18 06:00 Pulse 78 10/04/18 08:00 Resp 16 10/04/18 08:00 BP 160/92 10/04/18 08:00 Pulse Ox 97 10/03/18 22:00 Intake & Output 10/03/18 10/03/18 10/04/18 11:59 23:59 11:59 Intake Total 1250 870 900 Output Total 35 300 Balance 1215 570 900 Weight 86.183 kg 87.815 kg Intake: IV 1250 650 900 Normal Saline - 1,000 ml 1250 650 900 @ 125 mls/hr IV ASDIR YFN Rx#:[id number] IVPB 100 Oral 120 0 Output: Urine 35 300 [place] 35 300 Other: Voiding Method Indwelling Catheter Incontinent # Unmeasured Voids [place] 4 Bowel Movement No No Height 5 ft 10 in Body Mass Index (BMI) 27.2 Weight Measurement Method Built in [facility] Active Medications Acetaminophen (Ofirmev Injection -) 1,000 mg IVPB Q6H PRN PRN Reason: FEVER Last Admin: 10/01/18 22:54 Dose: 1,000 mg Albuterol/Ipratropium (Duoneb -) 1 amp NEB RQ4H [facility] Last Admin: 10/04/18 08:21 Dose: Not Given Amlodipine Besylate (Norvasc -) 5 mg PO DAILY [facility] Last Admin: 10/03/18 09:21 Dose: Not Given Aspirin (Asa -) 81 mg PO DAILY [facility] Last Admin: 10/03/18 09:20 Dose: Not Given Benztropine Mesylate (Cogentin -) 1 mg PO BID [facility] Last Admin: 10/03/18 21:40 Dose: 1 mg Chlordiazepoxide HCl (Librium -) 10 mg PO [id number] [facility] Stop: 10/06/18 23:01 Chlordiazepoxide HCl (Librium -) 10 mg PO Q12H YFN Stop: 10/08/18 05:01 Chlordiazepoxide HCl (Librium -) 10 mg PO Q4H PRN PRN Reason: WITHDRAWAL(CONT SUBST) Stop: 10/07/18 05:00 Chlordiazepoxide HCl (Librium -) 50 mg PO [id number] YFN Stop: 10/04/18 23:01 Last Admin: 10/04/18 07:20 Dose: Not Given Chlordiazepoxide HCl (Librium -) 25 mg PO [id number] YFN Stop: 10/05/18 23:01 Chlordiazepoxide HCl (Librium -) 25 mg PO Q4H PRN PRN Reason: WITHDRAWAL(CONT SUBST) Stop: 10/06/18 05:00 Heparin Sodium (Porcine) (Heparin -) 5,000 unit SQ BID [facility] Last Admin: 10/03/18 21:40 Dose: 5,000 unit Hydrochlorothiazide (Hctz -) 25 mg PO DAILY [facility] Last Admin: 10/02/18 09:35 Dose: Not Given Sodium Chloride (Normal Saline -) 1,000 mls @ 125 mls/hr IV ASDIR [facility] Last Admin: 10/03/18 12:09 Dose: Not Given Ceftriaxone Sodium 1 gm/ (Dextrose) 50 mls @ 100 mls/hr IVPB DAILY [facility] Last Admin: 10/03/18 12:09 Dose: 100 mls/hr Levetiracetam (Keppra Injection -) 500 mg IVPB BID [facility] Last Admin: 10/03/18 21:40 Dose: 500 mg Lisinopril (Prinivil) 20 mg PO DAILY [facility] Last Admin: 10/03/18 09:21 Dose: Not Given Lorazepam (Ativan Injection -) 2 mg IM ONCE PRN PRN Reason: AGITATION Methylprednisolone Sodium Succinate (Solu-Medrol -) 40 mg IVPUSH Q6H-IV [facility] Last Admin: 10/04/18 02:39 Dose: 40 mg Mirtazapine (Remeron -) 30 mg PO HS [facility] Last Admin: 10/03/18 21:40 Dose: 30 mg Risperidone (Risperdal -) 2 mg PO HS [facility] Last Admin: 10/03/18 21:40 Dose: 2 mg Gen: Awake, agitated , intermittently following commands HEENT: PERRL, dry mucous membranes Heart: RRR Lung: clear anterior, no wheezes Abd: soft, nontender Ext: no edema Neuro: no focal. agitated CBCD WBC 7.4 K/mm3 (4.0-10.0) 10/03/18 05:30 RBC 3.57 M/mm3 (4.00-5.60) L 10/03/18 05:30 Hgb 10.4 GM/dL (11.7-16.9) L 10/03/18 05:30 Hct 30.9 % (35.4-49) L 10/03/18 05:30 MCV 86.6 fl (80-96) 10/03/18 05:30 MCHC 33.6 g/dl (32.0-35.9) 10/03/18 05:30 RDW 16.0 % (11.9-15.9) H 10/03/18 05:30 Plt Count 181 K/MM3 (134-434) 10/03/18 05:30 MPV 8.4 fl (7.5-11.1) 10/03/18 05:30 CMP Sodium 136 mmol/L (136-145) 10/03/18 05:30 Potassium 4.3 mmol/L (3.5-5.1) 10/03/18 05:30 Chloride 101 mmol/L (98-107) 10/03/18 05:30 Carbon Dioxide 30 mmol/L (21-32) 10/03/18 05:30 Anion Gap 4 MMOL/L (8-16) L 10/03/18 05:30 BUN 15 mg/dL (7-18) 10/03/18 05:30 Creatinine 0.9 mg/dL (0.55-1.3) 10/03/18 05:30 Creat Clearance w eGFR > 60 (>60) 10/03/18 05:30 Calcium 8.8 mg/dL (8.5-10.1) 10/03/18 05:30 Total Bilirubin 0.3 mg/dL (0.2-1) 10/03/18 05:30 AST 47 U/L (15-37) H 10/03/18 05:30 ALT 22 U/L (13-61) 10/03/18 05:30 Alkaline Phosphatase 86 U/L (45-117) 10/03/18 05:30 Total Protein 6.6 g/dl (6.4-8.2) 10/03/18 05:30 Albumin 2.9 g/dl (3.4-5.0) L 10/03/18 05:30 ASSESSMENT AND PLAN: Altered Mental Status Acute Hypercapneic Respiratory Failure Pneumonia likely Aspiration Acute COPD Exacerbation Acute Kidney Injury CAD s/p CABG +Troponins likely Demand Ischemia HTN Polysubstance Abuse Seizure Disorder - continue antibiotics - f/u cultures - Medrol - inhaled bronchodilators - O2 to keep Spo2 >90% - aspiration precautions - IVF - monitor urine output, creatinine - DVT prophylaxis - Cardiac Telemetry monitoring [facility]nn [facility] [id number]
[2018-10-04] MEDS ORDERED: DEXTROSE 5%-WATER - 50 ML IVPB ONE (09:25)
[2018-10-04] MEDS ORDERED: cefTRIAXone SODIUM 1 GM VIAL ONE (09:25)
[2018-10-04] MEDS: levETIRAcetam 500 MG/5 ML INJECTION VIAL IVPB SCH ×2 (09:33→21:51)
[2018-10-04] MEDS: CEFTRIAXONE 1 GM in DEXTROSE 5%-WATER - 50 ML IVPB SCH (09:35)
[2018-10-04] MEDS: HYDROCHLOROTHIAZIDE 25 MG TABLET (FP) PO SCH (09:38)
[2018-10-04] MEDS: HEPARIN NA (PORCINE) 5,000 UNITS/ML 1ML VIAL SQ SCH ×2 (09:38→21:20)
[2018-10-04] MEDS: ASPIRIN 81 MG CHEWABLE TABLETS PO SCH (09:38)
[2018-10-04] MEDS: chlordiazePOXIDE HCL 25 MG CAPSULE PO PRN ×2 (09:39→17:00)
[2018-10-04] MEDS: LISINOPRIL 20 MG TABLET (FP) PO SCH (09:39)
[2018-10-04] MEDS: amLODIPine BESYLATE 5 MG TABLET (FP) PO SCH (09:39)
[2018-10-04] MEDS ORDERED: PT OWN MED DRAWER 7, Y5N ONE (09:52)
[2018-10-04] MEDS: BENZTROPINE MESYLATE 1 MG TABLET (FP) PO SCH ×2 (09:54→21:48)
[2018-10-04] MEDS: SODIUM CHLORIDE 1,000 ML IV SCH (11:54)
[2018-10-04] MEDS ORDERED: hydrALAZINE HCL 20 MG/ML VIAL ONE (11:55)
[2018-10-04] MEDS: hydrALAZINE HCL 20 MG/ML VIAL IVPUSH PRN (11:56)
--- NOTE | 2018-10-04 12:57 | PN ---
Progress Note, Physician History of Present Illness: agitated - Current Medication List Current Medications: Active Medications Acetaminophen (Ofirmev Injection -) 1,000 mg IVPB Q6H PRN PRN Reason: FEVER Last Admin: 10/01/18 22:54 Dose: 1,000 mg Albuterol/Ipratropium (Duoneb -) 1 amp NEB RQ4H [facility] Last Admin: 10/04/18 08:21 Dose: Not Given Amlodipine Besylate (Norvasc -) 5 mg PO DAILY [facility] Last Admin: 10/04/18 09:39 Dose: 5 mg Aspirin (Asa -) 81 mg PO DAILY [facility] Last Admin: 10/04/18 09:38 Dose: 81 mg Benztropine Mesylate (Cogentin -) 1 mg PO BID [facility] Last Admin: 10/04/18 09:54 Dose: 1 mg Chlordiazepoxide HCl (Librium -) 10 mg PO [id number] [facility] Stop: 10/06/18 23:01 Chlordiazepoxide HCl (Librium -) 10 mg PO Q12H [facility] Stop: 10/08/18 05:01 Chlordiazepoxide HCl (Librium -) 10 mg PO Q4H PRN PRN Reason: WITHDRAWAL(CONT SUBST) Stop: 10/07/18 05:00 Chlordiazepoxide HCl (Librium -) 50 mg PO [id number] [facility] Stop: 10/04/18 23:01 Last Admin: 10/04/18 10:01 Dose: 50 mg Chlordiazepoxide HCl (Librium -) 25 mg PO [id number] [facility] Stop: 10/05/18 23:01 Chlordiazepoxide HCl (Librium -) 25 mg PO Q4H PRN PRN Reason: WITHDRAWAL(CONT SUBST) Stop: 10/06/18 05:00 Last Admin: 10/04/18 09:39 Dose: 25 mg Heparin Sodium (Porcine) (Heparin -) 5,000 unit SQ BID [facility] Last Admin: 10/04/18 09:38 Dose: 5,000 unit Hydralazine HCl (Apresoline Injection -) 20 mg IVPUSH Q6H PRN PRN Reason: HYPERTENSION Last Admin: 10/04/18 11:56 Dose: 20 mg Hydrochlorothiazide (Hctz -) 25 mg PO DAILY [facility] Last Admin: 10/04/18 09:38 Dose: 25 mg Sodium Chloride (Normal Saline -) 1,000 mls @ 125 mls/hr IV ASDIR [facility] Last Admin: 10/04/18 11:54 Dose: 125 mls/hr Ceftriaxone Sodium 1 gm/ (Dextrose) 50 mls @ 100 mls/hr IVPB DAILY [facility] Last Admin: 10/04/18 09:35 Dose: 100 mls/hr Levetiracetam (Keppra Injection -) 500 mg IVPB BID [facility] Last Admin: 10/04/18 09:33 Dose: 500 mg Lisinopril (Prinivil) 20 mg PO DAILY [facility] Last Admin: 10/04/18 09:39 Dose: 20 mg Methylprednisolone Sodium Succinate (Solu-Medrol -) 40 mg IVPUSH Q6H-IV [facility] Last Admin: 10/04/18 09:29 Dose: 40 mg Mirtazapine (Remeron -) 30 mg PO HS [facility] Last Admin: 10/03/18 21:40 Dose: 30 mg Risperidone (Risperdal -) 2 mg PO [facility] Last Admin: 10/03/18 21:40 Dose: 2 mg - Objective Vital Signs: Vital Signs Temperature 97.5 F L 10/04/18 11:00 Pulse Rate 87 10/04/18 12:11 Respiratory Rate 21 H 10/04/18 12:11 Blood Pressure 172/93 H 10/04/18 12:11 O2 Sat by Pulse Oximetry (%) 97 10/03/18 22:00 Constitutional: Yes: No Distress HENT: Yes: Atraumatic Neck: Yes: Supple Cardiovascular: Yes: Regular Rate and Rhythm Respiratory: Yes: Rhonchi Gastrointestinal: Yes: Normal Bowel Sounds Extremities: Yes: WNL Edema: No Peripheral Pulses WNL: Yes Neurological: Yes: Confusion Labs: CBC, BMP 10/03/18 05:30 10/03/18 05:30 INR, PTT INR 1.01 (0.83-1.09) 10/01/18 09:42 Problem List - Problems (1) Alcohol dependence with uncomplicated withdrawal Assessment/Plan: on prn ativan gets very agitated tyrese prn on librieum protocol Code(s): F10.230 - ALCOHOL DEPENDENCE WITH WITHDRAWAL, UNCOMPLICATED (2) CAD (coronary artery disease) of artery bypass graft Assessment/Plan: continue cardiac meds cardiology on board Code(s): I25.810 - ATHEROSCLEROSIS OF CABG W/O ANGINA PECTORIS (3) Cannabis dependence Code(s): F12.20 - CANNABIS DEPENDENCE, UNCOMPLICATED (4) Elevated troponin Assessment/Plan: trended down cardio note reviewed monitor Code(s): R74.8 - ABNORMAL LEVELS OF OTHER SERUM ENZYMES (5) Opioid dependence with withdrawal Code(s): F11.23 - OPIOID DEPENDENCE WITH WITHDRAWAL (6) Gastroesophageal reflux disease Code(s): K21.9 - GASTRO-ESOPHAGEAL REFLUX DISEASE WITHOUT ESOPHAGITIS (7) Hypercholesterolemia Code(s): E78.0 - PURE HYPERCHOLESTEROLEMIA * DO NOT USE * (9) Schizoaffective disorder Code(s): F25.9 - SCHIZOAFFECTIVE DISORDER, UNSPECIFIED (10) Bipolar disorder Code(s): F31.9 - BIPOLAR DISORDER, UNSPECIFIED (11) Cocaine dependence Code(s): F14.20 - COCAINE DEPENDENCE, UNCOMPLICATED (12) Essential hypertension Assessment/Plan: on meds monitor Code(s): I10 - ESSENTIAL (PRIMARY) HYPERTENSION (13) Nicotine dependence Code(s): F17.200 - NICOTINE DEPENDENCE, UNSPECIFIED, UNCOMPLICATED
[2018-10-04] MEDS ORDERED: LORazepam 2 MG/ML SDV VIAL ONE (13:36)
[2018-10-04] MEDS ORDERED: LORazepam 2 MG/ML SDV VIAL IVPUSH ONE ×3 (14:15→21:30)
--- NOTE | 2018-10-04 16:06 | PN ---
Progress Note, Physician History of Present Illness: continues to be confused still not much improvement from mental status - Current Medication List Current Medications: Active Medications Acetaminophen (Ofirmev Injection -) 1,000 mg IVPB Q6H PRN PRN Reason: FEVER Last Admin: 10/01/18 22:54 Dose: 1,000 mg Albuterol/Ipratropium (Duoneb -) 1 amp NEB RQ4H [facility] Last Admin: 10/04/18 15:43 Dose: 1 amp Amlodipine Besylate (Norvasc -) 5 mg PO DAILY [facility] Last Admin: 10/04/18 09:39 Dose: 5 mg Aspirin (Asa -) 81 mg PO DAILY [facility] Last Admin: 10/04/18 09:38 Dose: 81 mg Benztropine Mesylate (Cogentin -) 1 mg PO BID [facility] Last Admin: 10/04/18 09:54 Dose: 1 mg Chlordiazepoxide HCl (Librium -) 10 mg PO [id number] [facility] Stop: 10/06/18 23:01 Chlordiazepoxide HCl (Librium -) 10 mg PO Q12H [facility] Stop: 10/08/18 05:01 Chlordiazepoxide HCl (Librium -) 10 mg PO Q4H PRN PRN Reason: WITHDRAWAL(CONT SUBST) Stop: 10/07/18 05:00 Chlordiazepoxide HCl (Librium -) 50 mg PO [id number] [facility] Stop: 10/04/18 23:01 Last Admin: 10/04/18 10:01 Dose: 50 mg Chlordiazepoxide HCl (Librium -) 25 mg PO [id number] [facility] Stop: 10/05/18 23:01 Chlordiazepoxide HCl (Librium -) 25 mg PO Q4H PRN PRN Reason: WITHDRAWAL(CONT SUBST) Stop: 10/06/18 05:00 Last Admin: 10/04/18 09:39 Dose: 25 mg Heparin Sodium (Porcine) (Heparin -) 5,000 unit SQ BID [facility] Last Admin: 10/04/18 09:38 Dose: 5,000 unit Hydralazine HCl (Apresoline Injection -) 20 mg IVPUSH Q6H PRN PRN Reason: HYPERTENSION Last Admin: 10/04/18 11:56 Dose: 20 mg Hydrochlorothiazide (Hctz -) 25 mg PO DAILY [facility] Last Admin: 10/04/18 09:38 Dose: 25 mg Sodium Chloride (Normal Saline -) 1,000 mls @ 125 mls/hr IV ASDIR [facility] Last Admin: 10/04/18 11:54 Dose: 125 mls/hr Ceftriaxone Sodium 1 gm/ (Dextrose) 50 mls @ 100 mls/hr IVPB DAILY [facility] Last Admin: 10/04/18 09:35 Dose: 100 mls/hr Levetiracetam (Keppra Injection -) 500 mg IVPB BID [facility] Last Admin: 10/04/18 09:33 Dose: 500 mg Lisinopril (Prinivil) 20 mg PO DAILY [facility] Last Admin: 10/04/18 09:39 Dose: 20 mg Methylprednisolone Sodium Succinate (Solu-Medrol -) 40 mg IVPUSH Q6H-IV [facility] Last Admin: 10/04/18 09:29 Dose: 40 mg Mirtazapine (Remeron -) 30 mg PO HS [facility] Last Admin: 10/03/18 21:40 Dose: 30 mg Risperidone (Risperdal -) 2 mg PO HS [facility] Last Admin: 10/03/18 21:40 Dose: 2 mg - Objective Vital Signs: Vital Signs Temperature 97.4 F L 10/04/18 14:00 Pulse Rate 84 10/04/18 14:00 Respiratory Rate 22 H 10/04/18 14:00 Blood Pressure 201/96 H 10/04/18 14:00 O2 Sat by Pulse Oximetry (%) 97 10/03/18 22:00 Constitutional: Yes: No Distress, Calm Neck: Yes: Supple Cardiovascular: Yes: S1, S2 Gastrointestinal: Yes: Normal Bowel Sounds, Soft Musculoskeletal: Yes: Other Extremities: Yes: Other Neurological: Yes: Alert, Oriented Psychiatric: Yes: Alert, Oriented Labs: CBC, BMP 10/03/18 05:30 10/03/18 05:30 INR, PTT INR 1.01 (0.83-1.09) 10/01/18 09:42 Assessment/Plan 58 yo M with PMHx of HTN, CAD(stent placed in 1999), COPD, seizure disorder,CABG ,GERD, and polysubstance abuse brought in by EMS today for evaluation of altered mental status admitted to ICU s/p intubation and need for cardiac monitoring. ams resp failure htn withdrawl plan off of abx close watch hydration cx results noted rest as per the team monitor resp status
[2018-10-04] MEDS ORDERED: LORazepam 1 MG TABLET PO SCH (17:00)
[2018-10-04] MEDS: MIRTAZAPINE 15 MG TABLET (FP) PO SCH (22:13)
[2018-10-04] MEDS: risperiDONE 1 MG TABLET (FP) PO SCH (22:14)
[2018-10-04] MEDS ORDERED: HYDROmorphone HCl 2 MG/ML VIAL IVPUSH ONE (23:02)
[2018-10-05] MEDS: ALBUTEROL SO4 2.5/IPRATROPIUM 0.5 INH SOL 3 ML VIAL.NEB. NEB SCH ×7 (00:25→23:43)
[2018-10-05] MEDS: chlordiazePOXIDE HCL 25 MG CAPSULE PO SCH ×4 (01:11→17:12)
[2018-10-05] MEDS: methylPREDNISolone NA SUCC 40 MG/1 ML VIAL IVPUSH SCH ×3 (03:24→21:29)
[2018-10-05] MEDS ORDERED: DEXTROSE 5%-WATER - 50 ML IVPB ONE (09:31)
[2018-10-05] MEDS ORDERED: cefTRIAXone SODIUM 1 GM VIAL ONE (09:31)
[2018-10-05] MEDS: HEPARIN NA (PORCINE) 5,000 UNITS/ML 1ML VIAL SQ SCH ×2 (09:42→21:42)
[2018-10-05] MEDS: levETIRAcetam 500 MG/5 ML INJECTION VIAL IVPB SCH ×2 (09:44→21:43)
[2018-10-05] MEDS: CEFTRIAXONE 1 GM in DEXTROSE 5%-WATER - 50 ML IVPB SCH (09:46)
--- NOTE | 2018-10-05 10:29 | PN ---
Progress Note (short form) - Note Progress Note: PULM/CCM SUBJECTIVE: Patient seen and examined in the ICU. -still agitated, climbing out of bed, delerious -lab holiday today -intermittently directable but mostly agitated -weaning steroids, no wheezes OBJECTIVE: Vital Signs Temp 98.4 F 10/04/18 18:00 Pulse 64 10/05/18 08:00 Resp 18 10/05/18 08:00 BP 126/86 10/05/18 08:00 Pulse Ox 94 L 10/05/18 09:00 Intake & Output 10/04/18 10/04/18 10/05/18 11:59 23:59 12:59 Intake Total 900 1025 940 Balance 900 1025 940 Weight 87.815 kg 88.621 kg Intake: IV 900 875 840 Normal Saline - 1,000 ml 900 875 840 @ 125 mls/hr IV ASDIR [facility] Rx#:[id number] IVPB 150 100 Oral 0 Other: Voiding Method Incontinent Incontinent Incontinent # Unmeasured Voids [place] 4 1 1 Bowel Movement No Weight [facility] Active Medications Acetaminophen (Ofirmev Injection -) 1,000 mg IVPB Q6H PRN PRN Reason: FEVER Last Admin: 10/01/18 22:54 Dose: 1,000 mg Albuterol/Ipratropium (Duoneb -) 1 amp NEB RQ4H [facility] Last Admin: 10/05/18 11:10 Dose: 1 amp Amlodipine Besylate (Norvasc -) 5 mg PO DAILY [facility] Last Admin: 10/04/18 09:39 Dose: 5 mg Aspirin (Asa -) 81 mg PO DAILY [facility] Last Admin: 10/04/18 09:38 Dose: 81 mg Benztropine Mesylate (Cogentin -) 1 mg PO BID [facility] Last Admin: 10/04/18 21:48 Dose: Not Given Chlordiazepoxide HCl (Librium -) 10 mg PO [id number] [facility] Stop: 10/06/18 23:01 Chlordiazepoxide HCl (Librium -) 10 mg PO Q12H [facility] Stop: 10/08/18 05:01 Chlordiazepoxide HCl (Librium -) 10 mg PO Q4H PRN PRN Reason: WITHDRAWAL(CONT SUBST) Stop: 10/07/18 05:00 Chlordiazepoxide HCl (Librium -) 25 mg PO [id number] [facility] Stop: 10/05/18 23:01 Last Admin: 10/05/18 05:54 Dose: Not Given Chlordiazepoxide HCl (Librium -) 25 mg PO Q4H PRN PRN Reason: WITHDRAWAL(CONT SUBST) Stop: 10/06/18 05:00 Last Admin: 10/04/18 17:00 Dose: 25 mg Heparin Sodium (Porcine) (Heparin -) 5,000 unit SQ BID [facility] Last Admin: 10/05/18 09:42 Dose: 5,000 unit Hydralazine HCl (Apresoline Injection -) 20 mg IVPUSH Q6H PRN PRN Reason: HYPERTENSION Last Admin: 10/04/18 11:56 Dose: 20 mg Hydrochlorothiazide (Hctz -) 25 mg PO DAILY [facility] [place] Last Admin: 10/04/18 09:38 Dose: 25 mg Sodium Chloride (Normal Saline -) 1,000 mls @ 125 mls/hr IV ASDIR [facility] [place] Last Admin: 10/04/18 11:54 Dose: 125 mls/hr Ceftriaxone Sodium 1 gm/ (Dextrose) 50 mls @ 100 mls/hr IVPB DAILY [facility] Last Admin: 10/05/18 09:46 Dose: 100 mls/hr Levetiracetam (Keppra Injection -) 500 mg IVPB BID [facility] Last Admin: 10/05/18 09:44 Dose: 500 mg Lisinopril (Prinivil) 20 mg PO DAILY [facility] Last Admin: 10/04/18 09:39 Dose: 20 mg Methylprednisolone Sodium Succinate (Solu-Medrol -) 40 mg IVPUSH Q12H [facility] [place] Last Admin: 10/05/18 08:23 Dose: 40 mg Mirtazapine (Remeron -) 30 mg PO HS [facility] [place] Last Admin: 10/04/18 22:13 Dose: 30 mg Risperidone (Risperdal -) 2 mg PO HS [facility] [place] Last Admin: 10/04/18 22:14 Dose: 2 mg Gen: Awake, agitated , intermittently following commands HEENT: PERRL, dry mucous membranes Heart: RRR Lung: clear anterior, no wheezes Abd: soft, nontender Ext: no edema Neuro: nonfocal. agitated CBCD WBC 7.4 K/mm3 (4.0-10.0) 10/03/18 05:30 RBC 3.57 M/mm3 (4.00-5.60) L 10/03/18 05:30 Hgb 10.4 GM/dL (11.7-16.9) L 10/03/18 05:30 Hct 30.9 % (35.4-49) L 10/03/18 05:30 MCV 86.6 fl (80-96) 10/03/18 05:30 MCHC 33.6 g/dl (32.0-35.9) 10/03/18 05:30 RDW 16.0 % (11.9-15.9) H 10/03/18 05:30 Plt Count 181 K/MM3 (134-434) 10/03/18 05:30 MPV 8.4 fl (7.5-11.1) 10/03/18 05:30 CMP Sodium 136 mmol/L (136-145) 10/03/18 05:30 Potassium 4.3 mmol/L (3.5-5.1) 10/03/18 05:30 Chloride 101 mmol/L (98-107) 10/03/18 05:30 Carbon Dioxide 30 mmol/L (21-32) 10/03/18 05:30 Anion Gap 4 MMOL/L (8-16) L 10/03/18 05:30 BUN 15 mg/dL (7-18) 10/03/18 05:30 Creatinine 0.9 mg/dL (0.55-1.3) 10/03/18 05:30 Creat Clearance w eGFR > 60 (>60) 10/03/18 05:30 Random Glucose 125 mg/dL (74-106) H 10/03/18 05:30 Calcium 8.8 mg/dL (8.5-10.1) 10/03/18 05:30 Total Bilirubin 0.3 mg/dL (0.2-1) 10/03/18 05:30 AST 47 U/L (15-37) H 10/03/18 05:30 ALT 22 U/L (13-61) 10/03/18 05:30 Alkaline Phosphatase 86 U/L (45-117) 10/03/18 05:30 Total Protein 6.6 g/dl (6.4-8.2) 10/03/18 05:30 Albumin 2.9 g/dl (3.4-5.0) L 10/03/18 05:30 CARDIAC ENZYMES Creatine Kinase 1136 U/L (26-308) H 10/03/18 05:30 Troponin I 0.78 ng/ml (0.00-0.05) H* 10/03/18 05:30 ASSESSMENT AND PLAN: Altered Mental Status Acute Hypercapneic Respiratory Failure Pneumonia likely Aspiration Acute COPD Exacerbation Acute Kidney Injury CAD s/p CABG +Troponins likely Demand Ischemia HTN Polysubstance Abuse Seizure Disorder - minimize benzo, less withdrawal, more ICU delerium - Medrol, weaning - sz hx on keppra - risperidone to BID - inhaled bronchodilators - O2 to keep Spo2 >90% - aspiration precautions - IVF - monitor urine output, creatinine - DVT prophylaxis - ok for floor once more directable Marilynn ACNP [id number]
[2018-10-05] MEDS: SODIUM CHLORIDE 1,000 ML IV SCH (12:00)
--- NOTE | 2018-10-05 12:30 | PN ---
Progress Note, Physician History of Present Illness: events noted Chart reviewed Seen in the medical ICU Extubated Had an episode of agitation requiring Ativan 4 mg Patient is now very sedated Difficult to arouse Becomes very difficult thrashing and very confused - Current Medication List Current Medications: Active Medications Acetaminophen (Ofirmev Injection -) 1,000 mg IVPB Q6H PRN PRN Reason: FEVER Last Admin: 10/01/18 22:54 Dose: 1,000 mg Albuterol/Ipratropium (Duoneb -) 1 amp NEB RQ4H [facility] Last Admin: 10/05/18 11:10 Dose: 1 amp Amlodipine Besylate (Norvasc -) 5 mg PO DAILY [facility] Last Admin: 10/04/18 09:39 Dose: 5 mg Aspirin (Asa -) 81 mg PO DAILY [facility] Last Admin: 10/04/18 09:38 Dose: 81 mg Benztropine Mesylate (Cogentin -) 1 mg PO BID [facility] Last Admin: 10/04/18 21:48 Dose: Not Given Chlordiazepoxide HCl (Librium -) 10 mg PO [id number] [facility] Stop: 10/06/18 23:01 Chlordiazepoxide HCl (Librium -) 10 mg PO Q12H [facility] Stop: 10/08/18 05:01 Chlordiazepoxide HCl (Librium -) 10 mg PO Q4H PRN PRN Reason: WITHDRAWAL(CONT SUBST) Stop: 10/07/18 05:00 Chlordiazepoxide HCl (Librium -) 25 mg PO [id number] [facility] Stop: 10/05/18 23:01 Last Admin: 10/05/18 05:54 Dose: Not Given Chlordiazepoxide HCl (Librium -) 25 mg PO Q4H PRN PRN Reason: WITHDRAWAL(CONT SUBST) Stop: 10/06/18 05:00 Last Admin: 10/04/18 17:00 Dose: 25 mg Heparin Sodium (Porcine) (Heparin -) 5,000 unit SQ BID [facility] Last Admin: 10/05/18 09:42 Dose: 5,000 unit Hydralazine HCl (Apresoline Injection -) 20 mg IVPUSH Q6H PRN PRN Reason: HYPERTENSION Last Admin: 10/04/18 11:56 Dose: 20 mg Hydrochlorothiazide (Hctz -) 25 mg PO DAILY [facility] Last Admin: 10/04/18 09:38 Dose: 25 mg Sodium Chloride (Normal Saline -) 1,000 mls @ 125 mls/hr IV ASDIR [facility] Last Admin: 10/04/18 11:54 Dose: 125 mls/hr Ceftriaxone Sodium 1 gm/ (Dextrose) 50 mls @ 100 mls/hr IVPB DAILY [facility] Last Admin: 10/05/18 09:46 Dose: 100 mls/hr Levetiracetam (Keppra Injection -) 500 mg IVPB BID [facility] Last Admin: 10/05/18 09:44 Dose: 500 mg Lisinopril (Prinivil) 20 mg PO DAILY [facility] Last Admin: 10/04/18 09:39 Dose: 20 mg Methylprednisolone Sodium Succinate (Solu-Medrol -) 40 mg IVPUSH Q12H [facility] Last Admin: 10/05/18 08:23 Dose: 40 mg Mirtazapine (Remeron -) 30 mg PO HS [facility] Last Admin: 10/04/18 22:13 Dose: 30 mg Risperidone (Risperdal -) 2 mg PO [facility] Last Admin: 10/04/18 22:14 Dose: 2 mg - Objective Vital Signs: Vital Signs Temperature 97.5 F L 10/05/18 10:00 Pulse Rate 80 10/05/18 10:00 Respiratory Rate 18 10/05/18 10:00 Blood Pressure 142/83 10/05/18 10:00 O2 Sat by Pulse Oximetry (%) 94 L 10/05/18 10:00 Constitutional: Yes: Well Nourished Eyes: Yes: WNL Neurological: Yes: Babinski positive, Cran Nerves II-XII Intact, Facial Droop ...Motor Strength: WNL (moves all 4 extremities symmetrically to pain) Labs: CBC, BMP 10/03/18 05:30 10/03/18 05:30 INR, PTT INR 1.01 (0.83-1.09) 10/01/18 09:42 Problem List - Problems (1) Alcohol dependence with uncomplicated withdrawal Assessment/Plan: 1. suggest psych consult 2. Decreased the benzodiazepine usage 3. Seizure precautions 4. Trial of risperidone 0.5 twice daily 5. Avoid Keppra 6. Plan to move out of the ICU as soon as possible to avoid added ICU psychosis Code(s): F10.230 - ALCOHOL DEPENDENCE WITH WITHDRAWAL, UNCOMPLICATED
[2018-10-05] MEDS: BENZTROPINE MESYLATE 1 MG TABLET (FP) PO SCH ×2 (13:10→21:25)
[2018-10-05] MEDS: amLODIPine BESYLATE 5 MG TABLET (FP) PO SCH (13:11)
[2018-10-05] MEDS: ASPIRIN 81 MG CHEWABLE TABLETS PO SCH (13:11)
[2018-10-05] MEDS: HYDROCHLOROTHIAZIDE 25 MG TABLET (FP) PO SCH (13:11)
[2018-10-05] MEDS: LISINOPRIL 20 MG TABLET (FP) PO SCH (13:11)
[2018-10-05] MEDS ORDERED: HALOPERIDOL LACTATE 5 MG/ML ONE (15:33)
[2018-10-05] MEDS ORDERED: HALOPERIDOL LACTATE 5 MG/ML IM ONE (15:34)
--- NOTE | 2018-10-05 15:36 | PN ---
Progress Note, Physician History of Present Illness: events noted extubated now sedated difficulty to arouse - Current Medication List Current Medications: Active Medications Acetaminophen (Ofirmev Injection -) 1,000 mg IVPB Q6H PRN PRN Reason: FEVER Last Admin: 10/01/18 22:54 Dose: 1,000 mg Albuterol/Ipratropium (Duoneb -) 1 amp NEB RQ4H [facility] Last Admin: 10/05/18 15:16 Dose: 1 amp Amlodipine Besylate (Norvasc -) 5 mg PO DAILY [facility] Last Admin: 10/05/18 13:11 Dose: Not Given Aspirin (Asa -) 81 mg PO DAILY [facility] Last Admin: 10/05/18 13:11 Dose: Not Given Benztropine Mesylate (Cogentin -) 1 mg PO BID [facility] Last Admin: 10/05/18 13:10 Dose: Not Given Chlordiazepoxide HCl (Librium -) 10 mg PO [id number] [facility] Stop: 10/06/18 23:01 Chlordiazepoxide HCl (Librium -) 10 mg PO Q12H [facility] Stop: 10/08/18 05:01 Chlordiazepoxide HCl (Librium -) 10 mg PO Q4H PRN PRN Reason: WITHDRAWAL(CONT SUBST) Stop: 10/07/18 05:00 Chlordiazepoxide HCl (Librium -) 25 mg PO [id number] [facility] Stop: 10/05/18 23:01 Last Admin: 10/05/18 11:00 Dose: Not Given Chlordiazepoxide HCl (Librium -) 25 mg PO Q4H PRN PRN Reason: WITHDRAWAL(CONT SUBST) Stop: 10/06/18 05:00 Last Admin: 10/04/18 17:00 Dose: 25 mg Heparin Sodium (Porcine) (Heparin -) 5,000 unit SQ BID [facility] Last Admin: 10/05/18 09:42 Dose: 5,000 unit Hydralazine HCl (Apresoline Injection -) 20 mg IVPUSH Q6H PRN PRN Reason: HYPERTENSION Last Admin: 10/04/18 11:56 Dose: 20 mg Hydrochlorothiazide (Hctz -) 25 mg PO DAILY [facility] Last Admin: 10/05/18 13:11 Dose: Not Given Sodium Chloride (Normal Saline -) 1,000 mls @ 125 mls/hr IV ASDIR [facility] Last Admin: 10/05/18 12:00 Dose: 125 mls/hr Ceftriaxone Sodium 1 gm/ (Dextrose) 50 mls @ 100 mls/hr IVPB DAILY [facility] Last Admin: 10/05/18 09:46 Dose: 100 mls/hr Levetiracetam (Keppra Injection -) 500 mg IVPB BID [facility] Last Admin: 10/05/18 09:44 Dose: 500 mg Lisinopril (Prinivil) 20 mg PO DAILY [facility] Last Admin: 10/05/18 13:11 Dose: Not Given Methylprednisolone Sodium Succinate (Solu-Medrol -) 40 mg IVPUSH Q12H [facility] Last Admin: 10/05/18 08:23 Dose: 40 mg Mirtazapine (Remeron -) 30 mg PO HS [facility] Last Admin: 10/04/18 22:13 Dose: 30 mg Risperidone (Risperdal -) 2 mg PO [facility] Last Admin: 10/04/18 22:14 Dose: 2 mg - Objective Vital Signs: Vital Signs Temperature 97.5 F L 10/05/18 10:00 Pulse Rate 80 10/05/18 10:00 Respiratory Rate 18 10/05/18 10:00 Blood Pressure 142/83 10/05/18 10:00 O2 Sat by Pulse Oximetry (%) 94 L 10/05/18 10:00 Constitutional: Yes: No Distress, Calm Cardiovascular: Yes: Regular Rate and Rhythm Respiratory: Yes: Regular, Poor Air Entry Gastrointestinal: Yes: Normal Bowel Sounds, Soft Musculoskeletal: Yes: WNL Extremities: Yes: WNL Neurological: Yes: Other Labs: CBC, BMP 10/03/18 05:30 10/03/18 05:30 INR, PTT INR 1.01 (0.83-1.09) 10/01/18 09:42 Assessment/Plan 58 yo M with PMHx of HTN, CAD(stent placed in 1999), COPD, seizure disorder,CABG ,GERD, and polysubstance abuse brought in by EMS today for evaluation of altered mental status admitted to ICU s/p intubation and need for cardiac monitoring. ams resp failure htn withdrawl plan will consider deescalating abx tomorrow close watch hydration cx results noted rest as per the team monitor resp status
[2018-10-05] MEDS: chlordiazePOXIDE HCL 25 MG CAPSULE PO PRN (16:00)
[2018-10-05] MEDS ORDERED: LORazepam 0.5 MG TABLET PO SCH (17:00)
[2018-10-05] MEDS ORDERED: LORazepam 0.5 MG TABLET PO PRN (17:00)
--- NOTE | 2018-10-05 17:54 | PN ---
Progress Note, Physician History of Present Illness: drowsy - Current Medication List Current Medications: Active Medications Acetaminophen (Ofirmev Injection -) 1,000 mg IVPB Q6H PRN PRN Reason: FEVER Last Admin: 10/01/18 22:54 Dose: 1,000 mg Albuterol/Ipratropium (Duoneb -) 1 amp NEB RQ4H [facility] Last Admin: 10/05/18 15:16 Dose: 1 amp Amlodipine Besylate (Norvasc -) 5 mg PO DAILY [facility] Last Admin: 10/05/18 13:11 Dose: Not Given Aspirin (Asa -) 81 mg PO DAILY [facility] Last Admin: 10/05/18 13:11 Dose: Not Given Benztropine Mesylate (Cogentin -) 1 mg PO BID [facility] Last Admin: 10/05/18 13:10 Dose: Not Given Chlordiazepoxide HCl (Librium -) 10 mg PO [id number] [facility] Stop: 10/06/18 23:01 Chlordiazepoxide HCl (Librium -) 10 mg PO Q12H [facility] Stop: 10/08/18 05:01 Chlordiazepoxide HCl (Librium -) 10 mg PO Q4H PRN PRN Reason: WITHDRAWAL(CONT SUBST) Stop: 10/07/18 05:00 Chlordiazepoxide HCl (Librium -) 25 mg PO [id number] [facility] Stop: 10/05/18 23:01 Last Admin: 10/05/18 17:12 Dose: 25 mg Chlordiazepoxide HCl (Librium -) 25 mg PO Q4H PRN PRN Reason: WITHDRAWAL(CONT SUBST) Stop: 10/06/18 05:00 Last Admin: 10/05/18 16:00 Dose: 25 mg Heparin Sodium (Porcine) (Heparin -) 5,000 unit SQ BID [facility] Last Admin: 10/05/18 09:42 Dose: 5,000 unit Hydralazine HCl (Apresoline Injection -) 20 mg IVPUSH Q6H PRN PRN Reason: HYPERTENSION Last Admin: 10/04/18 11:56 Dose: 20 mg Hydrochlorothiazide (Hctz -) 25 mg PO DAILY [facility] Last Admin: 10/05/18 13:11 Dose: Not Given Sodium Chloride (Normal Saline -) 1,000 mls @ 125 mls/hr IV ASDIR [facility] Last Admin: 10/05/18 12:00 Dose: 125 mls/hr Ceftriaxone Sodium 1 gm/ (Dextrose) 50 mls @ 100 mls/hr IVPB DAILY [facility] Last Admin: 10/05/18 09:46 Dose: 100 mls/hr Levetiracetam (Keppra Injection -) 500 mg IVPB BID [facility] Last Admin: 10/05/18 09:44 Dose: 500 mg Lisinopril (Prinivil) 20 mg PO DAILY [facility] Last Admin: 10/05/18 13:11 Dose: Not Given Methylprednisolone Sodium Succinate (Solu-Medrol -) 40 mg IVPUSH Q12H [facility] Last Admin: 10/05/18 08:23 Dose: 40 mg Mirtazapine (Remeron -) 30 mg PO [facility] Last Admin: 10/04/18 22:13 Dose: 30 mg Risperidone (Risperdal -) 2 mg PO [facility] Last Admin: 10/04/18 22:14 Dose: 2 mg - Objective Vital Signs: Vital Signs Temperature 98 F 10/05/18 14:00 Pulse Rate 93 H 10/05/18 16:00 Respiratory Rate 22 H 10/05/18 16:00 Blood Pressure 128/77 10/05/18 14:00 O2 Sat by Pulse Oximetry (%) 94 L 10/05/18 10:00 Constitutional: Yes: Calm HENT: Yes: Atraumatic Neck: Yes: Supple Cardiovascular: Yes: Regular Rate and Rhythm Respiratory: Yes: CTA Bilaterally Gastrointestinal: Yes: Normal Bowel Sounds Extremities: Yes: WNL Edema: No Peripheral Pulses WNL: Yes Labs: CBC, BMP 10/03/18 05:30 10/03/18 05:30 INR, PTT INR 1.01 (0.83-1.09) 10/01/18 09:42 Problem List - Problems (1) Alcohol dependence with uncomplicated withdrawal Assessment/Plan: on prn ativan gets very agitated tyrese prn Code(s): F10.230 - ALCOHOL DEPENDENCE WITH WITHDRAWAL, UNCOMPLICATED (2) CAD (coronary artery disease) of artery bypass graft Code(s): I25.810 - ATHEROSCLEROSIS OF CABG W/O ANGINA PECTORIS (3) Cannabis dependence Code(s): F12.20 - CANNABIS DEPENDENCE, UNCOMPLICATED (4) Elevated troponin Assessment/Plan: trended down cardio note reviewed monitor Code(s): R74.8 - ABNORMAL LEVELS OF OTHER SERUM ENZYMES (5) Opioid dependence with withdrawal Code(s): F11.23 - OPIOID DEPENDENCE WITH WITHDRAWAL (6) Gastroesophageal reflux disease Code(s): K21.9 - GASTRO-ESOPHAGEAL REFLUX DISEASE WITHOUT ESOPHAGITIS (7) Hypercholesterolemia Code(s): E78.0 - PURE HYPERCHOLESTEROLEMIA * DO NOT USE * (9) Schizoaffective disorder Code(s): F25.9 - SCHIZOAFFECTIVE DISORDER, UNSPECIFIED (10) Bipolar disorder Code(s): F31.9 - BIPOLAR DISORDER, UNSPECIFIED (11) Cocaine dependence Code(s): F14.20 - COCAINE DEPENDENCE, UNCOMPLICATED (12) Nicotine dependence Code(s): F17.200 - NICOTINE DEPENDENCE, UNSPECIFIED, UNCOMPLICATED (13) HTN (hypertension) Assessment/Plan: on meds monitor Code(s): I10 - ESSENTIAL (PRIMARY) HYPERTENSION (14) Alcohol abuse Assessment/Plan: on librium prorocol Code(s): F10.10 - ALCOHOL ABUSE, UNCOMPLICATED Assessment/Plan cc time 35 min
[2018-10-05] MEDS: MIRTAZAPINE 15 MG TABLET (FP) PO SCH (21:26)
[2018-10-05] MEDS: risperiDONE 1 MG TABLET (FP) PO SCH (21:26)
[2018-10-05] MEDS: ACETAMINOPHEN 1000 MG/100 ML VIAL (NON FORMULARY) IVPB PRN (21:43)
[2018-10-06] MEDS: chlordiazePOXIDE HCL 25 MG CAPSULE PO SCH (00:49)
[2018-10-06] MEDS: chlordiazePOXIDE HCL 25 MG CAPSULE PO PRN (00:50)
[2018-10-06] MEDS: hydrALAZINE HCL 20 MG/ML VIAL IVPUSH PRN ×2 (00:55→08:10)
[2018-10-06] MEDS: ALBUTEROL SO4 2.5/IPRATROPIUM 0.5 INH SOL 3 ML VIAL.NEB. NEB SCH ×4 (03:09→15:35)
[2018-10-06] MEDS ORDERED: chlordiazePOXIDE HCL 10 MG CAPSULE PO PRN ×2 (05:00→17:27)
[2018-10-06] MEDS: chlordiazePOXIDE HCL 10 MG CAPSULE PO SCH ×3 (07:21→17:02)
[2018-10-06] MEDS: methylPREDNISolone NA SUCC 40 MG/1 ML VIAL IVPUSH SCH (08:13)
[2018-10-06] MEDS ORDERED: chlordiazePOXIDE 5 MG CAPSULE ONE ×2 (09:54→16:56)
[2018-10-06] MEDS ORDERED: DEXTROSE 5%-WATER - 50 ML IVPB ONE (09:55)
[2018-10-06] MEDS ORDERED: cefTRIAXone SODIUM 1 GM VIAL ONE (09:55)
[2018-10-06] MEDS: levETIRAcetam 500 MG/5 ML INJECTION VIAL IVPB SCH ×2 (10:01→21:55)
[2018-10-06] MEDS: HEPARIN NA (PORCINE) 5,000 UNITS/ML 1ML VIAL SQ SCH ×2 (10:03→21:55)
[2018-10-06] MEDS: LISINOPRIL 20 MG TABLET (FP) PO SCH (10:05)
[2018-10-06] MEDS: HYDROCHLOROTHIAZIDE 25 MG TABLET (FP) PO SCH (10:06)
[2018-10-06] MEDS: ASPIRIN 81 MG CHEWABLE TABLETS PO SCH (10:06)
[2018-10-06] MEDS: CEFTRIAXONE 1 GM in DEXTROSE 5%-WATER - 50 ML IVPB SCH (10:06)
[2018-10-06] MEDS: amLODIPine BESYLATE 5 MG TABLET (FP) PO SCH (10:06)
[2018-10-06] MEDS: BENZTROPINE MESYLATE 1 MG TABLET (FP) PO SCH ×2 (10:08→22:02)
--- NOTE | 2018-10-06 11:52 | PN ---
Physical Exam: SUBJECTIVE: Patient seen and examined. Still restless and agitated attempting to get out of bed. Extubated, sating well. Still with elevated BP and tachycardia. OBJECTIVE: Vital Signs Period Temp Pulse Resp BP Sys/Mcclellan Pulse Ox Last 24 Hr 97.3 F-98 F 89-102 18-22 128-190/77-119 94-95 Vital Signs Temp 97.3 F L 10/06/18 10:30 Pulse 95 H 10/06/18 10:30 Resp 20 10/06/18 10:30 BP 190/100 H 10/06/18 10:30 Pulse Ox 95 10/06/18 10:00 Intake & Output 10/05/18 10/05/18 10/06/18 11:59 23:59 11:59 Intake Total 500 600 Balance 500 600 Weight Intake: IV 500 500 Normal Saline - 1,000 ml 500 500 @ 125 mls/hr IV ASDIR YFN Rx#:[id number] IVPB 100 Other: Voiding Method Incontinent Incontinent # Unmeasured Voids [place] 1 1 GENERAL: The patient is somnolent but arousable HEAD: Normal with no signs of trauma. ENT:Dry moist mucous membranes. NECK: supple. LUNGS: Bronchial breath sounds, no crackles HEART: Tachycardic, S1, S2 without murmur, rub or gallop. ABDOMEN: Soft, nontender, nondistended, normoactive bowel sounds EXTREMITIES: 2+ pulses, warm, well-perfused, no edema. NEUROLOGICAL: Somnolent, restless,arousable, no lateralizing signs, able to move all extremities Active Medications Generic Name Dose Route Start Last Admin Trade Name Kosta PRN Reason Stop Dose Admin Acetaminophen 1,000 mg 10/01/18 22:46 10/05/18 21:43 Ofirmev Injection - IVPB 1,000 mg Q6H PRN Administration FEVER Albuterol/Ipratropium 1 amp 10/02/18 13:30 10/06/18 07:40 Duoneb - NEB 1 amp RQ4H YFN Administration Amlodipine Besylate 5 mg 10/02/18 10:00 10/06/18 10:06 Norvasc - PO 5 mg DAILY YFN Administration Aspirin 81 mg 10/02/18 10:00 10/06/18 10:06 Asa - PO 81 mg DAILY YFN Administration Benztropine Mesylate 1 mg 10/01/18 22:00 10/06/18 10:08 Cogentin - PO 1 mg BID YFN Administration Chlordiazepoxide HCl 10 mg 10/06/18 05:00 10/06/18 10:36 Librium - PO 10/06/18 23:01 10 mg [id number] YFN Administration Chlordiazepoxide HCl 10 mg 10/07/18 05:00 Librium - PO 10/08/18 05:01 Q12H YFN Chlordiazepoxide HCl 10 mg 10/06/18 05:00 10/06/18 10:37 Librium - PO 10/07/18 05:00 10 mg Q4H PRN Administration WITHDRAWAL(CONT SUBST) Clonidine HCl 0.3 mg 10/13/18 10:00 Catapres Tts Patch - TD Q7D@1000 YFN Heparin Sodium (Porcine) 5,000 unit 10/01/18 22:00 10/06/18 10:03 Heparin - SQ 5,000 unit BID YFN Administration Hydralazine HCl 20 mg 10/04/18 11:27 10/06/18 08:10 Apresoline Injection - IVPUSH 20 mg Q6H PRN Administration HYPERTENSION Hydrochlorothiazide 25 mg 10/02/18 10:00 10/06/18 10:06 Hctz - PO 25 mg DAILY YFN Administration Sodium Chloride 1,000 mls @ 125 mls/hr 10/02/18 11:45 10/05/18 12:00 Normal Saline - IV 125 mls/hr ASDIR YFN Administration Ceftriaxone Sodium 1 gm/ 50 mls @ 100 mls/hr 10/02/18 11:45 10/06/18 10:06 Dextrose IVPB 100 mls/hr DAILY YFN Administration Levetiracetam 500 mg 10/01/18 22:00 10/06/18 10:01 Keppra Injection - IVPB 500 mg BID YFN Administration Lisinopril 20 mg 10/02/18 10:00 10/06/18 10:05 Prinivil PO 20 mg DAILY YFN Administration Methylprednisolone Sodium Succinate 40 mg 10/05/18 08:00 10/06/18 08:13 Solu-Medrol - IVPUSH 40 mg Q12H YFN Administration Mirtazapine 30 mg 10/01/18 22:00 10/05/18 21:26 Remeron - PO 30 mg HS YFN Administration Risperidone 2 mg 10/01/18 22:00 10/05/18 21:26 Risperdal - PO 2 mg HS YFN Administration ASSESSMENT/PLAN: 58 yo M with PMHx of HTN, CAD(stent placed in 1999), COPD, seizure disorder,CABG ,GERD, and polysubstance abuse brought in by EMS from [facility] for altered mental status admitted to ICU s/p intubation and need for cardiac monitoring. NEURO: * Patient with likely persistent agitation with ICU psychosis, transfer to floors * AMS on arrival and pt was intubated to protect airway. Self extubated 10/02/18 * CT head was negative for acute IC pathology. * Was at [facility] for detox. - Completing librium protocol 10/07 * H/O of seizure disorder * Neuro consult appreciated. * Siezure precautions and cont Keppra 250mg IV Q12H * EEG negative PULM: * Extubated sating well on room air * aspiration precautions * Elevate HOB CV: * H/O CAD and HTN * Cardiology consult appreciated * Troponins elevated - most likely demand * avoid BB because of recent cocaine use. * CCB for BP control * continue cardiac monitoring. * Stop iv hydralazine, add clonidine patch 0.3mg ID: * Empiric Zosyn in ER * Infective * UA WNL * blood/ urine cultures * CXR did not show any infiltrate or consolidation. GI: * Protonix 40mg daily PSYCH: * Continue Risperidone and Mertazapine. FEN: * E-lytes WNl continue to monitor and replete PRN PPx: * Heparin SQ 5000 u tid * PPI Dispo * For transfer to [place] Surg Visit type - Emergency Visit Emergency Visit: Yes ED Registration Date: 10/01/18 Care time: The patient presented to the Emergency Department on the above date and was hospitalized for further evaluation of their emergent condition. - New Patient This patient is new to me today: Yes Date on this admission: 10/06/18 - Critical Care Critical Care patient: Yes Total Critical Care Time (in minutes): 35 Critical Care Statement: The care of this patient involved high complexity decision making to prevent further life threatening deterioration of the patient 's condition and/or to evaluate & treat vital organ system(s) failure or risk of failure. - Discharge Referral Referred to [facility] Med P.C.: Yes
--- NOTE | 2018-10-06 12:08 | PN ---
Teaching Attending Note Name of Resident: Stephany Banks ATTENDING PHYSICIAN STATEMENT I saw and evaluated the patient. I reviewed the resident's note and discussed the case with the resident. I agree with the resident's findings and plan as documented. SUBJECTIVE: Patient seen and examined in the ICU. Awake but agitated. No able to answer questions. No seizures noted. OBJECTIVE: Intake & Output 10/03/18 10/04/18 10/05/18 10/06/18 22:59 22:59 23:59 23:59 Intake Total 600 Output Total Balance 600 Weight Last Vital Signs Temp Pulse Resp BP Pulse Ox 97.3 F L 95 H 20 190/100 H 95 10/06/18 10:30 10/06/18 10:30 10/06/18 10:30 10/06/18 10:30 10/06/18 10:00 Active Medications Acetaminophen (Ofirmev Injection -) 1,000 mg IVPB Q6H PRN PRN Reason: FEVER Last Admin: 10/05/18 21:43 Dose: 1,000 mg Albuterol/Ipratropium (Duoneb -) 1 amp NEB RQ4H [facility] Last Admin: 10/06/18 07:40 Dose: 1 amp Amlodipine Besylate (Norvasc -) 5 mg PO DAILY [facility] Last Admin: 10/06/18 10:06 Dose: 5 mg Aspirin (Asa -) 81 mg PO DAILY [facility] Last Admin: 10/06/18 10:06 Dose: 81 mg Benztropine Mesylate (Cogentin -) 1 mg PO BID [facility] Last Admin: 10/06/18 10:08 Dose: 1 mg Chlordiazepoxide HCl (Librium -) 10 mg PO [id number] [facility] Stop: 10/06/18 23:01 Last Admin: 10/06/18 10:36 Dose: 10 mg Chlordiazepoxide HCl (Librium -) 10 mg PO Q12H [facility] Stop: 10/08/18 05:01 Chlordiazepoxide HCl (Librium -) 10 mg PO Q4H PRN PRN Reason: WITHDRAWAL(CONT SUBST) Stop: 10/07/18 05:00 Last Admin: 10/06/18 10:37 Dose: 10 mg Clonidine HCl (Catapres Tts Patch -) 0.3 mg TD Q7D@1000 [facility] Heparin Sodium (Porcine) (Heparin -) 5,000 unit SQ BID [facility] Last Admin: 10/06/18 10:03 Dose: 5,000 unit Hydralazine HCl (Apresoline Injection -) 20 mg IVPUSH Q6H PRN PRN Reason: HYPERTENSION Last Admin: 10/06/18 08:10 Dose: 20 mg Hydrochlorothiazide (Hctz -) 25 mg PO DAILY [facility] Last Admin: 10/06/18 10:06 Dose: 25 mg Sodium Chloride (Normal Saline -) 1,000 mls @ 125 mls/hr IV ASDIR [facility] Last Admin: 10/05/18 12:00 Dose: 125 mls/hr Ceftriaxone Sodium 1 gm/ (Dextrose) 50 mls @ 100 mls/hr IVPB DAILY [facility] Last Admin: 10/06/18 10:06 Dose: 100 mls/hr Levetiracetam (Keppra Injection -) 500 mg IVPB BID [facility] Last Admin: 10/06/18 10:01 Dose: 500 mg Lisinopril (Prinivil) 20 mg PO DAILY [facility] Last Admin: 10/06/18 10:05 Dose: 20 mg Methylprednisolone Sodium Succinate (Solu-Medrol -) 40 mg IVPUSH Q12H [facility] Last Admin: 10/06/18 08:13 Dose: 40 mg Mirtazapine (Remeron -) 30 mg PO HS [facility] Last Admin: 10/05/18 21:26 Dose: 30 mg Risperidone (Risperdal -) 2 mg PO HS [facility] Last Admin: 10/05/18 21:26 Dose: 2 mg Gen: Awake, agitated Heart: RRR Lung: scattered bilateral rhonchi Abd: soft, nontender Ext: no edema ASSESSMENT AND PLAN: Altered Mental Status Acute Hypercapneic Respiratory Failure Pneumonia likely Aspiration Acute COPD Exacerbation Acute Kidney Injury CAD s/p CABG +Troponins likely Demand Ischemia HTN Polysubstance Abuse Seizure Disorder - D/W if ABX can be D/C - D/C Medrol - inhaled bronchodilators - O2 to keep Spo2 >90% - Aspiration precautions - Add Clonidine patch - Floor Dr Katz
--- NOTE | 2018-10-06 13:38 | PN ---
Progress Note, Physician History of Present Illness: stable no new issues - Current Medication List Current Medications: Active Medications Acetaminophen (Ofirmev Injection -) 1,000 mg IVPB Q6H PRN PRN Reason: FEVER Last Admin: 10/05/18 21:43 Dose: 1,000 mg Albuterol/Ipratropium (Duoneb -) 1 amp NEB RQ4H [facility] Last Admin: 10/06/18 07:40 Dose: 1 amp Amlodipine Besylate (Norvasc -) 5 mg PO DAILY [facility] Last Admin: 10/06/18 10:06 Dose: 5 mg Aspirin (Asa -) 81 mg PO DAILY [facility] Last Admin: 10/06/18 10:06 Dose: 81 mg Benztropine Mesylate (Cogentin -) 1 mg PO BID [facility] Last Admin: 10/06/18 10:08 Dose: 1 mg Chlordiazepoxide HCl (Librium -) 10 mg PO [id number] [facility] Stop: 10/06/18 23:01 Last Admin: 10/06/18 10:36 Dose: 10 mg Chlordiazepoxide HCl (Librium -) 10 mg PO Q12H [facility] Stop: 10/08/18 05:01 Chlordiazepoxide HCl (Librium -) 10 mg PO Q4H PRN PRN Reason: WITHDRAWAL(CONT SUBST) Stop: 10/07/18 05:00 Last Admin: 10/06/18 10:37 Dose: 10 mg Clonidine HCl (Catapres Tts Patch -) 0.3 mg TD Q7D@1000 [facility] Heparin Sodium (Porcine) (Heparin -) 5,000 unit SQ BID [facility] Last Admin: 10/06/18 10:03 Dose: 5,000 unit Hydralazine HCl (Apresoline Injection -) 20 mg IVPUSH Q6H PRN PRN Reason: HYPERTENSION Last Admin: 10/06/18 08:10 Dose: 20 mg Hydrochlorothiazide (Hctz -) 25 mg PO DAILY [facility] Last Admin: 10/06/18 10:06 Dose: 25 mg Sodium Chloride (Normal Saline -) 1,000 mls @ 125 mls/hr IV ASDIR [facility] Last Admin: 10/05/18 12:00 Dose: 125 mls/hr Ceftriaxone Sodium 1 gm/ (Dextrose) 50 mls @ 100 mls/hr IVPB DAILY [facility] Last Admin: 03/11/19 10:06 Dose: 100 mls/hr Levetiracetam (Keppra Injection -) 500 mg IVPB BID [facility] Last Admin: 10/06/18 10:01 Dose: 500 mg Lisinopril (Prinivil) 20 mg PO DAILY [facility] Last Admin: 10/06/18 10:05 Dose: 20 mg Methylprednisolone Sodium Succinate (Solu-Medrol -) 40 mg IVPUSH Q12H [facility] Last Admin: 10/06/18 08:13 Dose: 40 mg Mirtazapine (Remeron -) 30 mg PO [facility] Last Admin: 10/05/18 21:26 Dose: 30 mg Risperidone (Risperdal -) 2 mg PO [facility] Last Admin: 10/05/18 21:26 Dose: 2 mg - Objective Vital Signs: Vital Signs Temperature 97.3 F L 10/06/18 10:30 Pulse Rate 95 H 10/06/18 12:00 Respiratory Rate 18 10/06/18 12:00 Blood Pressure 168/75 10/06/18 12:00 O2 Sat by Pulse Oximetry (%) 95 10/06/18 10:00 Constitutional: Yes: No Distress, Calm Cardiovascular: Yes: Regular Rate and Rhythm Respiratory: Yes: Regular, CTA Bilaterally Gastrointestinal: Yes: Normal Bowel Sounds, Soft Musculoskeletal: Yes: WNL Extremities: Yes: Other Neurological: Yes: Confusion, Other Labs: CBC, BMP 10/03/18 05:30 10/03/18 05:30 INR, PTT INR 1.01 (0.83-1.09) 10/01/18 09:42 Assessment/Plan 58 yo M with PMHx of HTN, CAD(stent placed in 1999), COPD, seizure disorder,CABG ,GERD, and polysubstance abuse brought in by EMS today for evaluation of altered mental status admitted to ICU s/p intubation and need for cardiac monitoring. ams resp failure htn withdrawl plan off of abx close watch hydration cx results noted rest as per the team monitor resp status
[2018-10-06] MEDS: SODIUM CHLORIDE 1,000 ML IV SCH (13:52)
--- NOTE | 2018-10-06 15:57 | PN ---
Progress Note, [employer] - Note Progress Note: Altered Mental Status Acute Hypercapneic Respiratory Failure Pneumonia likely Aspiration Acute COPD Exacerbation Acute Kidney Injury CAD s/p CABG +Troponins likely Demand Ischemia HTN Polysubstance Abuse Seizure Disorder Lethargic, confused, lightening, sitting up, eyes mostly closed, poor intelligibilty, followed simple commands. Tongue protudes midline.. Swallow is labored. Mild pooling of saliva on oropharynx. At risk of aspiration sec to SHARONDA. NPO until sufficiently alert. When arousabe, trial puree with nectar thicken liquids via cup. Observe standard aspiration precautions. Provide oral care after meals. Crush medication for safe swallowing. Monitor PO tolerance
[2018-10-06] MEDS ORDERED: ACETAMINOPHEN 1000 MG/100 ML VIAL (NON FORMULARY) IVPB PRN (17:27)
[2018-10-06] MEDS ORDERED: SODIUM CHLORIDE 1,000 ML IV SCH (17:27)
[2018-10-06] MEDS: hydrALAZINE HCL 10 MG TABLET PO PRN (17:44)
[2018-10-06] MEDS ORDERED: chlordiazePOXIDE 5 MG CAPSULE PO PRN (17:44)
[2018-10-06] MEDS: cloNIDine-TTS 0.3 MG /24 HRS PATCH.TDWK TD SCH (17:45)
[2018-10-06] MEDS ORDERED: PT OWN MED DRAWER 7, Y5N ONE (18:10)
--- NOTE | 2018-10-06 20:10 | PN ---
Progress Note, Physician History of Present Illness: drowsy - Current Medication List Current Medications: Active Medications Acetaminophen (Ofirmev Injection -) 1,000 mg IVPB Q6H PRN PRN Reason: FEVER Amlodipine Besylate (Norvasc -) 5 mg PO DAILY [facility] Aspirin (Asa -) 81 mg PO DAILY [facility] Benztropine Mesylate (Cogentin -) 1 mg PO BID [facility] Chlordiazepoxide HCl (Librium -) 10 mg PO Q12H [facility] Stop: 10/08/18 05:01 Chlordiazepoxide HCl (Librium -) 10 mg PO Q4H PRN PRN Reason: WITHDRAWAL(CONT SUBST) Stop: 10/07/18 05:00 Clonidine HCl (Catapres Tts Patch -) 0.3 mg TD Q7D@1000 [facility] Last Admin: 10/06/18 17:45 Dose: 0.3 mg Heparin Sodium (Porcine) (Heparin -) 5,000 unit SQ BID [facility] Hydralazine HCl (Apresoline -) 10 mg PO Q8H PRN PRN Reason: HYPERTENSION Last Admin: 10/06/18 17:44 Dose: 10 mg Hydrochlorothiazide (Hctz -) 25 mg PO DAILY [facility] Sodium Chloride (Normal Saline -) 1,000 mls @ 125 mls/hr IV ASDIR [facility] Last Admin: 10/06/18 18:01 Dose: 125 mls/hr Levetiracetam (Keppra Injection -) 500 mg IVPB BID [facility] Lisinopril (Prinivil) 20 mg PO DAILY [facility] Mirtazapine (Remeron -) 30 mg PO HS [facility] Risperidone (Risperdal -) 2 mg PO HS YFN - Objective Vital Signs: Vital Signs Temperature 97.6 F 10/06/18 17:50 Pulse Rate 95 H 10/06/18 17:50 Respiratory Rate 20 10/06/18 17:50 Blood Pressure 176/106 H 10/06/18 17:50 O2 Sat by Pulse Oximetry (%) 95 10/06/18 10:00 Constitutional: Yes: No Distress HENT: Yes: Atraumatic Neck: Yes: Supple Cardiovascular: Yes: Regular Rate and Rhythm Respiratory: Yes: Rhonchi Gastrointestinal: Yes: Normal Bowel Sounds Extremities: Yes: WNL Edema: No Peripheral Pulses WNL: Yes Labs: CBC, BMP 10/03/18 05:30 10/03/18 05:30 INR, PTT INR 1.01 (0.83-1.09) 10/01/18 09:42 Problem List - Problems (1) Alcohol dependence with uncomplicated withdrawal Assessment/Plan: on prn ativan gets very agitated tyrese prn will get psych eval Code(s): F10.230 - ALCOHOL DEPENDENCE WITH WITHDRAWAL, UNCOMPLICATED (2) CAD (coronary artery disease) of artery bypass graft Assessment/Plan: continue cardiac meds cardiology on board Code(s): I25.810 - ATHEROSCLEROSIS OF CABG W/O ANGINA PECTORIS (3) Cannabis dependence Code(s): F12.20 - CANNABIS DEPENDENCE, UNCOMPLICATED (4) Elevated troponin Assessment/Plan: trended down cardio note reviewed monitor Code(s): R74.8 - ABNORMAL LEVELS OF OTHER SERUM ENZYMES (5) Opioid dependence with withdrawal Code(s): F11.23 - OPIOID DEPENDENCE WITH WITHDRAWAL (6) Gastroesophageal reflux disease Code(s): K21.9 - GASTRO-ESOPHAGEAL REFLUX DISEASE WITHOUT ESOPHAGITIS (7) Hypercholesterolemia Assessment/Plan: on meds stable Code(s): E78.0 - PURE HYPERCHOLESTEROLEMIA * DO NOT USE * (9) Schizoaffective disorder Code(s): F25.9 - SCHIZOAFFECTIVE DISORDER, UNSPECIFIED (10) Bipolar disorder Code(s): F31.9 - BIPOLAR DISORDER, UNSPECIFIED (11) Cocaine dependence Code(s): F14.20 - COCAINE DEPENDENCE, UNCOMPLICATED (12) Nicotine dependence Code(s): F17.200 - NICOTINE DEPENDENCE, UNSPECIFIED, UNCOMPLICATED (13) HTN (hypertension) Assessment/Plan: on meds monitor Code(s): I10 - ESSENTIAL (PRIMARY) HYPERTENSION (14) Alcohol abuse Assessment/Plan: on librium prorocol Code(s): F10.10 - ALCOHOL ABUSE, UNCOMPLICATED
[2018-10-06] MEDS: risperiDONE 1 MG TABLET (FP) PO SCH (21:55)
[2018-10-06] MEDS: MIRTAZAPINE 30 MG TABLET (FP) PO SCH (21:55)
[2018-10-06] MEDS ORDERED: amLODIPine BESYLATE 5 MG TABLET (FP) PO ONE (22:32)
[2018-10-07] MEDS ORDERED: chlordiazePOXIDE HCL 10 MG CAPSULE PO SCH (05:00)
[2018-10-07] MEDS: chlordiazePOXIDE 5 MG CAPSULE PO SCH ×2 (05:15→17:09)
[2018-10-07 08:02] LABS: BASO % 0.3 % (0-2.0); EOS % 0.4 % (0-4.5); HEMATOCRIT 34.6 % (35.4-49); HEMOGLOBIN 11.8 GM/dL (11.7-16.9); LYMPH % 24.9 % (8-40); MCH 28.8 pg (25.7-33.7); MEAN CELL VOLUME 84.7 fl (80-96); MEAN PLT VOLUME 7.5 fl (7.5-11.1); MONO % 10.2 % (3.8-10.2); NEUT % 64.2 % (42.8-82.8); PLATELET COUNT 224 K/MM3 (134-434); RBC 4.09 M/mm3 (4.00-5.60); RDW 16.2 % (11.9-15.9); WHITE BLOOD COUNT 4.2 K/mm3 (4.0-10.0)
[2018-10-07 08:44] LABS: ALBUMIN 2.9 g/dl (3.4-5.0); ALK PHOS 70 U/L (45-117); ANION GAP 5 MMOL/L (8-16); BILIRUBIN,TOTAL 0.4 mg/dL (0.2-1); BLOOD UREA NITROGEN 16 mg/dL (7-18); CALCIUM 8.6 mg/dL (8.5-10.1); CHLORIDE 104 mmol/L (98-107); CO2 31 mmol/L (21-32); CREATININE 0.9 mg/dL (0.55-1.3); GLUCOSE,RANDOM 82 mg/dL (74-106); POTASSIUM 3.4 mmol/L (3.5-5.1); SGOT/AST 25 U/L (15-37); SGPT/ALT 26 U/L (13-61); SODIUM 140 mmol/L (136-145); TOT PROT 6.4 g/dl (6.4-8.2)
[2018-10-07] MEDS: HYDROCHLOROTHIAZIDE 25 MG TABLET (FP) PO SCH (09:17)
[2018-10-07] MEDS: amLODIPine BESYLATE 10 MG TABLET (FP) PO SCH (09:17)
[2018-10-07] MEDS: HEPARIN NA (PORCINE) 5,000 UNITS/ML 1ML VIAL SQ SCH ×2 (09:17→22:34)
[2018-10-07] MEDS: LISINOPRIL 20 MG TABLET (FP) PO SCH (09:17)
[2018-10-07] MEDS: hydrALAZINE HCL 10 MG TABLET PO PRN (09:17)
[2018-10-07] MEDS: ASPIRIN 81 MG CHEWABLE TABLETS PO SCH (09:17)
[2018-10-07] MEDS: levETIRAcetam 500 MG/5 ML INJECTION VIAL IVPB SCH (09:18)
[2018-10-07] MEDS: BENZTROPINE MESYLATE 1 MG TABLET (FP) PO SCH ×2 (09:18→22:34)
[2018-10-07] MEDS ORDERED: amLODIPine BESYLATE 5 MG TABLET (FP) PO SCH (10:00)
[2018-10-07] MEDS ORDERED: CEFTRIAXONE 1 GM in DEXTROSE 5%-WATER - 50 ML IVPB SCH (10:00)
--- NOTE | 2018-10-07 10:26 | PN ---
Progress Note (short form) - Note Progress Note: PULMONARY Awake but confused, not answering questions appropriately. Vital Signs Period Temp Pulse Resp BP Sys/Mcclellan Pulse Ox Last 24 Hr 97.3 F-98.6 F 22-99 18-20 144-190/75-106 95 Gen: mildly tachypneic at rest Heart: RRR Lung: poor effort Abd: soft, nontender Ext: no edema CBC, BMP 10/07/18 07:00 10/07/18 07:00 Active Medications Acetaminophen (Ofirmev Injection -) 1,000 mg IVPB Q6H PRN PRN Reason: FEVER Amlodipine Besylate (Norvasc -) 10 mg PO DAILY [facility] Last Admin: 10/07/18 09:17 Dose: 10 mg Aspirin (Asa -) 81 mg PO DAILY [facility] Last Admin: 10/07/18 09:17 Dose: 81 mg Benztropine Mesylate (Cogentin -) 1 mg PO BID [facility] Last Admin: 10/07/18 09:18 Dose: 1 mg Chlordiazepoxide HCl (Librium -) 10 mg PO Q12H [facility] Stop: 10/08/18 05:01 Last Admin: 10/07/18 05:15 Dose: 10 mg Clonidine HCl (Catapres Tts Patch -) 0.3 mg TD Q7D@1000 [facility] Last Admin: 10/06/18 17:45 Dose: 0.3 mg Heparin Sodium (Porcine) (Heparin -) 5,000 unit SQ BID [facility] Last Admin: 10/07/18 09:17 Dose: 5,000 unit Hydralazine HCl (Apresoline -) 10 mg PO Q8H PRN PRN Reason: HYPERTENSION Last Admin: 10/07/18 09:17 Dose: 10 mg Hydrochlorothiazide (Hctz -) 25 mg PO DAILY [facility] Last Admin: 10/07/18 09:17 Dose: 25 mg Levetiracetam (Keppra Injection -) 500 mg IVPB BID [facility] Last Admin: 10/07/18 09:18 Dose: 500 mg Lisinopril (Prinivil) 20 mg PO DAILY [facility] Last Admin: 10/07/18 09:17 Dose: 20 mg Mirtazapine (Remeron -) 30 mg PO HS [facility] Last Admin: 10/06/18 21:55 Dose: 30 mg Risperidone (Risperdal -) 2 mg PO HS [facility] Last Admin: 10/06/18 21:55 Dose: 2 mg A/P Altered Mental Status Acute Hypercapneic Respiratory Failure Pneumonia likely Aspiration Acute COPD Exacerbation Acute Kidney Injury CAD s/p CABG +Troponins likely Demand Ischemia HTN Polysubstance Abuse Seizure Disorder - completed antibiotics - inhaled bronchodilators - O2 to keep Spo2 >90% - aspiration precautions - DVT prophylaxis
--- NOTE | 2018-10-07 12:14 | CON.PSY ---
Psychiatry Consult Chief Complaint: 89 year old ,male admitted to ICUwith AMS probably secomdary to Substance abuse. patient also has severe chronic Medical conditions including Strnt placement> Seen for psych eval. Patirnt is in restrainrs and essentiually sedated and mumbling to himself. Symptoms: reports: Inability to Control Temper, Aggressivity, Impulsivity, Depersonalization - Previous Psychiatric Treatment Outpatient: Less than 6 mos ago Inpatient: Within the last 12 months - Previous Substance Abuse Treatment Outpatient: None, Less than 6 mos ago - Reason for Previous Treatment Reason for Previous Treatment: Drug Abuse - Current Medications Current Medications: Active Medications Acetaminophen (Ofirmev Injection -) 1,000 mg IVPB Q6H PRN PRN Reason: FEVER Amlodipine Besylate (Norvasc -) 10 mg PO DAILY [facility] Last Admin: 10/07/18 09:17 Dose: 10 mg Aspirin (Asa -) 81 mg PO DAILY [facility] Last Admin: 10/07/18 09:17 Dose: 81 mg Benztropine Mesylate (Cogentin -) 1 mg PO BID [facility] Last Admin: 10/07/18 09:18 Dose: 1 mg Chlordiazepoxide HCl (Librium -) 10 mg PO Q12H [facility] Stop: 10/08/18 05:01 Last Admin: 10/07/18 05:15 Dose: 10 mg Clonidine HCl (Catapres Tts Patch -) 0.3 mg TD Q7D@1000 [facility] Last Admin: 10/06/18 17:45 Dose: 0.3 mg Heparin Sodium (Porcine) (Heparin -) 5,000 unit SQ BID [facility] Last Admin: 10/07/18 09:17 Dose: 5,000 unit Hydralazine HCl (Apresoline -) 10 mg PO Q8H PRN PRN Reason: HYPERTENSION Last Admin: 10/07/18 09:17 Dose: 10 mg Hydrochlorothiazide (Hctz -) 25 mg PO DAILY [facility] Last Admin: 10/07/18 09:17 Dose: 25 mg Levetiracetam (Keppra Injection -) 500 mg IVPB BID [facility] Last Admin: 10/07/18 09:18 Dose: 500 mg Lisinopril (Prinivil) 20 mg PO DAILY [facility] Last Admin: 10/07/18 09:17 Dose: 20 mg Mirtazapine (Remeron -) 30 mg PO HS [facility] Last Admin: 10/06/18 21:55 Dose: 30 mg Risperidone (Risperdal -) 2 mg PO [facility] Last Admin: 10/06/18 21:55 Dose: 2 mg - Allergies Allergies: Allergies Allergy/AdvReac Type Severity Reaction Status Date / Time chlorpromazine HCl AdvReac Severe stiffness Verified 09/28/18 11:06 [From Thorazine] haloperidol [From Haldol] AdvReac Severe stiffness Verified 09/28/18 11:06 - Current Living Status Usual Living Arrangement: Alone - Current Mental Status Evaluation Appearance: Disheveled Attitude: Guarded - Affect Affect: Constrictive Appropriateness: Not Appropriate - Mood Mood: Irritable - Speech/Language Expressive: Delayed - Psychomotor Activity Psychomotor Activity: Slowed - Thought Process Thought Process: Circumstantial - Thought Content Hallucinations: Absent Delusions: Absent - Cognition Attention: Diminished Memory, Short Term: 1/3 Memory, Remote with Promptin/3 - Concentration Serial Sevens Intact: No Simple Calculations Intact: No - Abstraction Proverb Interpretation: [place] Judgement: Moderately Impaired - Insight Insight: Impaired - Impulse Control Impulse Control: Moderately Impaired - Suicidal Ideation Suicidal Ideation: No - Homicidal Ideation Homicidal Ideation: No Assessment/Plan !) Patient is unable to engage in any meaning ful conversation. 2) Continue with 1:1. 3) continue with [facility] psych meds.
--- NOTE | 2018-10-07 13:29 | PN ---
Progress Note, Physician History of Present Illness: still very confused wants to get out of bed - Current Medication List Current Medications: Active Medications Acetaminophen (Ofirmev Injection -) 1,000 mg IVPB Q6H PRN PRN Reason: FEVER Amlodipine Besylate (Norvasc -) 10 mg PO DAILY [facility] Last Admin: 10/07/18 09:17 Dose: 10 mg Aspirin (Asa -) 81 mg PO DAILY [facility] Last Admin: 10/07/18 09:17 Dose: 81 mg Benztropine Mesylate (Cogentin -) 1 mg PO BID [facility] Last Admin: 10/07/18 09:18 Dose: 1 mg Chlordiazepoxide HCl (Librium -) 10 mg PO Q12H [facility] Stop: 10/08/18 05:01 Last Admin: 10/07/18 05:15 Dose: 10 mg Clonidine HCl (Catapres Tts Patch -) 0.3 mg TD Q7D@1000 [facility] Last Admin: 10/06/18 17:45 Dose: 0.3 mg Heparin Sodium (Porcine) (Heparin -) 5,000 unit SQ BID [facility] Last Admin: 10/07/18 09:17 Dose: 5,000 unit Hydralazine HCl (Apresoline -) 10 mg PO Q8H PRN PRN Reason: HYPERTENSION Last Admin: 10/07/18 09:17 Dose: 10 mg Hydrochlorothiazide (Hctz -) 25 mg PO DAILY [facility] Last Admin: 10/07/18 09:17 Dose: 25 mg Levetiracetam (Keppra Injection -) 500 mg IVPB BID [facility] Last Admin: 10/07/18 09:18 Dose: 500 mg Lisinopril (Prinivil) 20 mg PO DAILY [facility] Last Admin: 10/07/18 09:17 Dose: 20 mg Mirtazapine (Remeron -) 30 mg PO HS [facility] Last Admin: 10/06/18 21:55 Dose: 30 mg Risperidone (Risperdal -) 2 mg PO HS [facility] Last Admin: 10/06/18 21:55 Dose: 2 mg - Objective Vital Signs: Vital Signs Temperature 97.9 F 10/07/18 09:00 Pulse Rate 92 H 10/07/18 09:00 Respiratory Rate 18 10/07/18 09:00 Blood Pressure 162/92 10/07/18 09:00 O2 Sat by Pulse Oximetry (%) 95 10/07/18 10:00 Constitutional: Yes: No Distress, Calm Cardiovascular: Yes: Regular Rate and Rhythm Respiratory: Yes: Regular, CTA Bilaterally Gastrointestinal: Yes: Normal Bowel Sounds, Soft Musculoskeletal: Yes: WNL Extremities: Yes: WNL Neurological: Yes: Confusion, Other (confusion) Psychiatric: Yes: Other Labs: CBC, BMP 10/07/18 07:00 10/07/18 07:00 INR, PTT INR 1.01 (0.83-1.09) 10/01/18 09:42 Assessment/Plan 58 yo M with PMHx of HTN, CAD(stent placed in 1999), COPD, seizure disorder,CABG ,GERD, and polysubstance abuse brought in by EMS today for evaluation of altered mental status admitted to ICU s/p intubation and need for cardiac monitoring. ams resp failure htn withdrawl plan continue to monitor sitter with the patient anxious restless rest continue current mgmt
--- NOTE | 2018-10-07 20:46 | PN ---
Progress Note, Physician - Current Medication List Current Medications: Active Medications Acetaminophen (Ofirmev Injection -) 1,000 mg IVPB Q6H PRN PRN Reason: FEVER Amlodipine Besylate (Norvasc -) 10 mg PO DAILY [facility] Last Admin: 10/07/18 09:17 Dose: 10 mg Aspirin (Asa -) 81 mg PO DAILY [facility] Last Admin: 10/07/18 09:17 Dose: 81 mg Benztropine Mesylate (Cogentin -) 1 mg PO BID [facility] Last Admin: 10/07/18 09:18 Dose: 1 mg Chlordiazepoxide HCl (Librium -) 10 mg PO Q12H [facility] Stop: 10/08/18 05:01 Last Admin: 10/07/18 17:09 Dose: 10 mg Clonidine HCl (Catapres Tts Patch -) 0.3 mg TD Q7D@1000 [facility] Last Admin: 10/06/18 17:45 Dose: 0.3 mg Heparin Sodium (Porcine) (Heparin -) 5,000 unit SQ BID [facility] Last Admin: 10/07/18 09:17 Dose: 5,000 unit Hydralazine HCl (Apresoline -) 10 mg PO Q8H PRN PRN Reason: HYPERTENSION Last Admin: 10/07/18 09:17 Dose: 10 mg Hydrochlorothiazide (Hctz -) 25 mg PO DAILY [facility] Last Admin: 10/07/18 09:17 Dose: 25 mg Levetiracetam (Keppra Injection -) 500 mg IVPB BID [facility] Last Admin: 10/07/18 09:18 Dose: 500 mg Levetiracetam (Keppra Oral Solution -) 500 mg PO BID [facility] Lisinopril (Prinivil) 20 mg PO DAILY [facility] Last Admin: 10/07/18 09:17 Dose: 20 mg Mirtazapine (Remeron -) 30 mg PO HS [facility] Last Admin: 10/06/18 21:55 Dose: 30 mg Risperidone (Risperdal -) 2 mg PO HS [facility] Last Admin: 10/06/18 21:55 Dose: 2 mg - Objective Vital Signs: Vital Signs Temperature 98.8 F 10/07/18 15:00 Pulse Rate 108 H 10/07/18 15:00 Respiratory Rate 20 10/07/18 15:00 Blood Pressure 148/88 10/07/18 15:00 O2 Sat by Pulse Oximetry (%) 95 03/12/19 10:00 Constitutional: Yes: No Distress HENT: Yes: Atraumatic Neck: Yes: Supple Cardiovascular: Yes: Regular Rate and Rhythm Respiratory: Yes: CTA Bilaterally Gastrointestinal: Yes: Normal Bowel Sounds Extremities: Yes: WNL Edema: No Peripheral Pulses WNL: Yes Neurological: Yes: Alert Labs: CBC, BMP 10/07/18 07:00 10/07/18 07:00 INR, PTT INR 1.01 (0.83-1.09) 10/01/18 09:42 Problem List - Problems (1) Alcohol dependence with uncomplicated withdrawal Assessment/Plan: on prn ativan tyrese prn psych eval done Code(s): F10.230 - ALCOHOL DEPENDENCE WITH WITHDRAWAL, UNCOMPLICATED (2) CAD (coronary artery disease) of artery bypass graft Assessment/Plan: continue cardiac meds cardiology on board Code(s): I25.810 - ATHEROSCLEROSIS OF CABG W/O ANGINA PECTORIS (3) Cannabis dependence Code(s): F12.20 - CANNABIS DEPENDENCE, UNCOMPLICATED (4) Elevated troponin Assessment/Plan: trended down cardio note reviewed monitor Code(s): R74.8 - ABNORMAL LEVELS OF OTHER SERUM ENZYMES (5) Opioid dependence with withdrawal Code(s): F11.23 - OPIOID DEPENDENCE WITH WITHDRAWAL (6) Gastroesophageal reflux disease Code(s): K21.9 - GASTRO-ESOPHAGEAL REFLUX DISEASE WITHOUT ESOPHAGITIS (7) Hypercholesterolemia Assessment/Plan: on meds stable Code(s): E78.0 - PURE HYPERCHOLESTEROLEMIA * DO NOT USE * (9) Schizoaffective disorder Code(s): F25.9 - SCHIZOAFFECTIVE DISORDER, UNSPECIFIED (10) Bipolar disorder Code(s): F31.9 - BIPOLAR DISORDER, UNSPECIFIED (11) Cocaine dependence Code(s): F14.20 - COCAINE DEPENDENCE, UNCOMPLICATED (12) Nicotine dependence Code(s): F17.200 - NICOTINE DEPENDENCE, UNSPECIFIED, UNCOMPLICATED (13) HTN (hypertension) Assessment/Plan: on meds monitor Code(s): I10 - ESSENTIAL (PRIMARY) HYPERTENSION (14) Alcohol abuse Assessment/Plan: on librium prorocol Code(s): F10.10 - ALCOHOL ABUSE, UNCOMPLICATED
[2018-10-07] MEDS ORDERED: PT OWN MED DRAWER 7, Y5N ONE (22:33)
[2018-10-07] MEDS: risperiDONE 1 MG TABLET (FP) PO SCH (22:34)
[2018-10-07] MEDS: MIRTAZAPINE 30 MG TABLET (FP) PO SCH (22:34)
[2018-10-07] MEDS: levETIRAcetam 500 MG/5 ML ORAL SOLUTION (UNIT-DOSE CUPS) PO SCH (22:34)
[2018-10-08] MEDS: chlordiazePOXIDE 5 MG CAPSULE PO SCH (05:35)
[2018-10-08] MEDS: levETIRAcetam 500 MG/5 ML ORAL SOLUTION (UNIT-DOSE CUPS) PO SCH ×2 (09:48→22:02)
[2018-10-08] MEDS: HEPARIN NA (PORCINE) 5,000 UNITS/ML 1ML VIAL SQ SCH ×2 (09:48→22:02)
[2018-10-08] MEDS: BENZTROPINE MESYLATE 1 MG TABLET (FP) PO SCH ×2 (09:49→22:02)
[2018-10-08] MEDS: ASPIRIN 81 MG CHEWABLE TABLETS PO SCH (09:49)
[2018-10-08] MEDS: HYDROCHLOROTHIAZIDE 25 MG TABLET (FP) PO SCH (09:49)
[2018-10-08] MEDS: LISINOPRIL 20 MG TABLET (FP) PO SCH (09:49)
[2018-10-08] MEDS: amLODIPine BESYLATE 10 MG TABLET (FP) PO SCH (09:49)
--- NOTE | 2018-10-08 10:47 | PN ---
Progress Note, Physician History of Present Illness: stable continues to be confused bu calm - Current Medication List Current Medications: Active Medications Acetaminophen (Ofirmev Injection -) 1,000 mg IVPB Q6H PRN PRN Reason: FEVER Amlodipine Besylate (Norvasc -) 10 mg PO DAILY [facility] Last Admin: 10/08/18 09:49 Dose: 10 mg Aspirin (Asa -) 81 mg PO DAILY [facility] Last Admin: 10/08/18 09:49 Dose: 81 mg Benztropine Mesylate (Cogentin -) 1 mg PO BID [facility] Last Admin: 10/08/18 09:49 Dose: 1 mg Clonidine HCl (Catapres Tts Patch -) 0.3 mg TD Q7D@1000 [facility] Last Admin: 10/06/18 17:45 Dose: 0.3 mg Heparin Sodium (Porcine) (Heparin -) 5,000 unit SQ BID [facility] Last Admin: 10/08/18 09:48 Dose: 5,000 unit Hydralazine HCl (Apresoline -) 10 mg PO Q8H PRN PRN Reason: HYPERTENSION Last Admin: 10/07/18 09:17 Dose: 10 mg Hydrochlorothiazide (Hctz -) 25 mg PO DAILY [facility] Last Admin: 10/08/18 09:49 Dose: 25 mg Levetiracetam (Keppra Oral Solution -) 500 mg PO BID [facility] Last Admin: 10/08/18 09:48 Dose: 500 mg Lisinopril (Prinivil) 20 mg PO DAILY [facility] Last Admin: 10/08/18 09:49 Dose: 20 mg Mirtazapine (Remeron -) 30 mg PO [facility] Last Admin: 10/07/18 22:34 Dose: 30 mg Risperidone (Risperdal -) 2 mg PO [facility] Last Admin: 10/07/18 22:34 Dose: 2 mg - Objective Vital Signs: Vital Signs Temperature 98.9 F 10/08/18 06:16 Pulse Rate 86 10/08/18 06:16 Respiratory Rate 18 10/08/18 06:16 Blood Pressure 156/98 10/08/18 06:16 O2 Sat by Pulse Oximetry (%) 696 H 10/07/18 22:00 Constitutional: Yes: No Distress, Calm, Other (sleeping) Neck: Yes: Supple Cardiovascular: Yes: Regular Rate and Rhythm Respiratory: Yes: Regular, Poor Air Entry (bases) Gastrointestinal: Yes: Normal Bowel Sounds, Soft Musculoskeletal: Yes: WNL Extremities: Yes: WNL Neurological: Yes: Lethargy, Other (sleeping) Labs: CBC, BMP 10/07/18 07:00 10/07/18 07:00 INR, PTT INR 1.01 (0.83-1.09) 10/01/18 09:42 Assessment/Plan 58 yo M with PMHx of HTN, CAD(stent placed in 1999), COPD, seizure disorder,CABG ,GERD, and polysubstance abuse brought in by EMS today for evaluation of altered mental status admitted to ICU s/p intubation and need for cardiac monitoring. ams resp failure htn withdrawl plan continue to monitor sitter with the patient anxious restless rest continue current mgmt nutrition
[2018-10-08] MEDS: LORazepam 2 MG/ML SDV VIAL IM PRN (12:51)
--- NOTE | 2018-10-08 13:26 | PN ---
Progress Note (short form) - Note Progress Note: PULMONARY More awake, alert. Agitated. Vital Signs Period Temp Pulse Resp BP Sys/Mcclellan Pulse Ox Last 24 Hr 98.0 F-98.9 F 86-108 18-20 135-156/88-98 95-696 Gen: mildly tachypneic at rest Heart: RRR Lung: poor effort Abd: soft, nontender Ext: no edema CBC, BMP 10/07/18 07:00 10/07/18 07:00 Active Medications Acetaminophen (Ofirmev Injection -) 1,000 mg IVPB Q6H PRN PRN Reason: FEVER Amlodipine Besylate (Norvasc -) 10 mg PO DAILY [facility] Last Admin: 10/08/18 09:49 Dose: 10 mg Aspirin (Asa -) 81 mg PO DAILY [facility] Last Admin: 10/08/18 09:49 Dose: 81 mg Benztropine Mesylate (Cogentin -) 1 mg PO BID [facility] Last Admin: 10/08/18 09:49 Dose: 1 mg Clonidine HCl (Catapres Tts Patch -) 0.3 mg TD Q7D@1000 [facility] Last Admin: 10/06/18 17:45 Dose: 0.3 mg Heparin Sodium (Porcine) (Heparin -) 5,000 unit SQ BID [facility] Last Admin: 10/08/18 09:48 Dose: 5,000 unit Hydralazine HCl (Apresoline -) 10 mg PO Q8H PRN PRN Reason: HYPERTENSION Last Admin: 10/07/18 09:17 Dose: 10 mg Hydrochlorothiazide (Hctz -) 25 mg PO DAILY [facility] Last Admin: 10/08/18 09:49 Dose: 25 mg Levetiracetam (Keppra Oral Solution -) 500 mg PO BID [facility] Last Admin: 10/08/18 09:48 Dose: 500 mg Lisinopril (Prinivil) 20 mg PO DAILY [facility] Last Admin: 10/08/18 09:49 Dose: 20 mg Lorazepam (Ativan Injection -) 2 mg IM Q4H PRN PRN Reason: AGITATION Last Admin: 10/08/18 12:51 Dose: 2 mg Mirtazapine (Remeron -) 30 mg PO HS [facility] Last Admin: 10/07/18 22:34 Dose: 30 mg Risperidone (Risperdal -) 2 mg PO HS [facility] Last Admin: 10/07/18 22:34 Dose: 2 mg A/P Altered Mental Status improving Acute Hypercapneic Respiratory Failure Pneumonia likely Aspiration Acute COPD Exacerbation Acute Kidney Injury CAD s/p CABG +Troponins likely Demand Ischemia HTN Polysubstance Abuse Seizure Disorder - completed antibiotics - inhaled bronchodilators - O2 to keep Spo2 >90% - aspiration precautions - DVT prophylaxis - d/c planning
[2018-10-08] MEDS ORDERED: ACETAMINOPHEN 325 MG TABLET (FP) PO PRN (17:17)
--- NOTE | 2018-10-08 17:20 | PN ---
Progress Note, Physician - Current Medication List Current Medications: Active Medications Acetaminophen (Tylenol -) 650 mg PO Q6H PRN PRN Reason: FEVER Amlodipine Besylate (Norvasc -) 10 mg PO DAILY [facility] Last Admin: 10/08/18 09:49 Dose: 10 mg Aspirin (Asa -) 81 mg PO DAILY [facility] Last Admin: 10/08/18 09:49 Dose: 81 mg Benztropine Mesylate (Cogentin -) 1 mg PO BID [facility] Last Admin: 10/08/18 09:49 Dose: 1 mg Clonidine HCl (Catapres Tts Patch -) 0.3 mg TD Q7D@1000 [facility] Last Admin: 10/06/18 17:45 Dose: 0.3 mg Heparin Sodium (Porcine) (Heparin -) 5,000 unit SQ BID [facility] Last Admin: 10/08/18 09:48 Dose: 5,000 unit Hydralazine HCl (Apresoline -) 10 mg PO Q8H PRN PRN Reason: HYPERTENSION Last Admin: 10/07/18 09:17 Dose: 10 mg Hydrochlorothiazide (Hctz -) 25 mg PO DAILY [facility] Last Admin: 10/08/18 09:49 Dose: 25 mg Levetiracetam (Keppra Oral Solution -) 500 mg PO BID [facility] Last Admin: 10/08/18 09:48 Dose: 500 mg Lisinopril (Prinivil) 20 mg PO DAILY [facility] Last Admin: 10/08/18 09:49 Dose: 20 mg Lorazepam (Ativan Injection -) 2 mg IM Q4H PRN PRN Reason: AGITATION Last Admin: 10/08/18 12:51 Dose: 2 mg Mirtazapine (Remeron -) 30 mg PO [facility] Last Admin: 10/07/18 22:34 Dose: 30 mg Risperidone (Risperdal -) 2 mg PO [facility] Last Admin: 10/07/18 22:34 Dose: 2 mg - Objective Vital Signs: Vital Signs Temperature 98.7 F 10/08/18 15:43 Pulse Rate 91 H 10/08/18 15:43 Respiratory Rate 18 10/08/18 15:43 Blood Pressure 165/85 10/08/18 15:43 O2 Sat by Pulse Oximetry (%) 95 10/08/18 10:00 Constitutional: Yes: Anxious HENT: Yes: Atraumatic Neck: Yes: Supple Cardiovascular: Yes: Regular Rate and Rhythm Respiratory: Yes: Rhonchi Gastrointestinal: Yes: Normal Bowel Sounds Extremities: Yes: WNL Edema: No Peripheral Pulses WNL: Yes Neurological: Yes: Alert Labs: CBC, BMP 10/07/18 07:00 10/07/18 07:00 INR, PTT INR 1.01 (0.83-1.09) 10/01/18 09:42 Problem List - Problems (1) Alcohol dependence with uncomplicated withdrawal Assessment/Plan: on prn ativan tyrese prn psych eval done Code(s): F10.230 - ALCOHOL DEPENDENCE WITH WITHDRAWAL, UNCOMPLICATED (2) CAD (coronary artery disease) of artery bypass graft Assessment/Plan: continue cardiac meds cardiology on board Code(s): I25.810 - ATHEROSCLEROSIS OF CABG W/O ANGINA PECTORIS (3) Cannabis dependence Code(s): F12.20 - CANNABIS DEPENDENCE, UNCOMPLICATED (4) Elevated troponin Assessment/Plan: trended down cardio note reviewed monitor Code(s): R74.8 - ABNORMAL LEVELS OF OTHER SERUM ENZYMES (5) Opioid dependence with withdrawal Code(s): F11.23 - OPIOID DEPENDENCE WITH WITHDRAWAL (6) Gastroesophageal reflux disease Code(s): K21.9 - GASTRO-ESOPHAGEAL REFLUX DISEASE WITHOUT ESOPHAGITIS (7) Hypercholesterolemia Assessment/Plan: on meds stable Code(s): E78.0 - PURE HYPERCHOLESTEROLEMIA * DO NOT USE * (9) Schizoaffective disorder Code(s): F25.9 - SCHIZOAFFECTIVE DISORDER, UNSPECIFIED (10) Bipolar disorder Code(s): F31.9 - BIPOLAR DISORDER, UNSPECIFIED (11) Cocaine dependence Code(s): F14.20 - COCAINE DEPENDENCE, UNCOMPLICATED (12) Nicotine dependence Code(s): F17.200 - NICOTINE DEPENDENCE, UNSPECIFIED, UNCOMPLICATED (13) HTN (hypertension) Assessment/Plan: on meds monitor Code(s): I10 - ESSENTIAL (PRIMARY) HYPERTENSION (14) Alcohol abuse Code(s): F10.10 - ALCOHOL ABUSE, UNCOMPLICATED
[2018-10-08] MEDS ORDERED: PT OWN MED DRAWER 7, Y5N ONE (22:00)
[2018-10-08] MEDS: risperiDONE 1 MG TABLET (FP) PO SCH (22:02)
[2018-10-08] MEDS: MIRTAZAPINE 30 MG TABLET (FP) PO SCH (22:02)
[2018-10-09] MEDS: LORazepam 2 MG/ML SDV VIAL IM PRN ×3 (01:18→16:29)
[2018-10-09] MEDS: levETIRAcetam 500 MG/5 ML ORAL SOLUTION (UNIT-DOSE CUPS) PO SCH ×2 (09:24→21:12)
[2018-10-09] MEDS: HEPARIN NA (PORCINE) 5,000 UNITS/ML 1ML VIAL SQ SCH ×2 (09:24→21:13)
[2018-10-09] MEDS: LISINOPRIL 20 MG TABLET (FP) PO SCH (09:25)
[2018-10-09] MEDS: HYDROCHLOROTHIAZIDE 25 MG TABLET (FP) PO SCH (09:25)
[2018-10-09] MEDS: ASPIRIN 81 MG CHEWABLE TABLETS PO SCH (09:25)
[2018-10-09] MEDS: amLODIPine BESYLATE 10 MG TABLET (FP) PO SCH (09:25)
[2018-10-09] MEDS: BENZTROPINE MESYLATE 1 MG TABLET (FP) PO SCH ×2 (09:25→21:12)
--- NOTE | 2018-10-09 10:03 | PN ---
Progress Note (short form) - Note Progress Note: PULMONARY Arousable but confused. Vital Signs Period Temp Pulse Resp BP Sys/Mcclellan Pulse Ox Last 24 Hr 98.2 F-98.7 F 74-91 18-20 102-165/66-85 95-97 Gen: less tachypneic at rest Heart: RRR Lung: poor effort Abd: soft, nontender Ext: no edema CBC, BMP 10/07/18 07:00 10/07/18 07:00 Active Medications Acetaminophen (Tylenol -) 650 mg PO Q6H PRN PRN Reason: FEVER Amlodipine Besylate (Norvasc -) 10 mg PO DAILY [facility] Last Admin: 10/09/18 09:25 Dose: 10 mg Aspirin (Asa -) 81 mg PO DAILY [facility] Last Admin: 10/09/18 09:25 Dose: 81 mg Benztropine Mesylate (Cogentin -) 1 mg PO BID [facility] Last Admin: 10/09/18 09:25 Dose: 1 mg Clonidine HCl (Catapres Tts Patch -) 0.3 mg TD Q7D@1000 [facility] Last Admin: 10/06/18 17:45 Dose: 0.3 mg Heparin Sodium (Porcine) (Heparin -) 5,000 unit SQ BID [facility] Last Admin: 10/09/18 09:24 Dose: 5,000 unit Hydralazine HCl (Apresoline -) 10 mg PO Q8H PRN PRN Reason: HYPERTENSION Last Admin: 10/07/18 09:17 Dose: 10 mg Hydrochlorothiazide (Hctz -) 25 mg PO DAILY [facility] Last Admin: 10/09/18 09:25 Dose: 25 mg Levetiracetam (Keppra Oral Solution -) 500 mg PO BID [facility] Last Admin: 10/09/18 09:24 Dose: 500 mg Lisinopril (Prinivil) 20 mg PO DAILY [facility] Last Admin: 10/09/18 09:25 Dose: 20 mg Lorazepam (Ativan Injection -) 2 mg IM Q4H PRN PRN Reason: AGITATION Last Admin: 10/09/18 09:24 Dose: 2 mg Mirtazapine (Remeron -) 30 mg PO HS [facility] Last Admin: 10/08/18 22:02 Dose: 30 mg Risperidone (Risperdal -) 2 mg PO HS [facility] Last Admin: 10/08/18 22:02 Dose: 2 mg A/P Altered Mental Status improving Acute Hypercapneic Respiratory Failure improving Pneumonia likely Aspiration Acute COPD Exacerbation Acute Kidney Injury CAD s/p CABG +Troponins likely Demand Ischemia HTN Polysubstance Abuse Seizure Disorder - completed antibiotics - inhaled bronchodilators - O2 to keep Spo2 >90% - aspiration precautions - DVT prophylaxis - d/c planning
--- NOTE | 2018-10-09 15:09 | PN ---
[facility] Progress Note (SOAP) Subjective: 58 y.o. male referred for consultation regarding agitation - history obtained from chart as patient asleep on multiple attempts to interview patient at bedside, per nursing staff pt awakens intermittently and is incoherent, has been seen by neurology , psychiatry, ID . Per record , pt w/ current dx of altered Mental Status improving, acute hypercapneic respiratory failure improving, pneumonia likely aspiration acute COPD exacerbation , acute Kidney injury , hx of alcohol, cocaine , cannabis , k2,heroin dependence , hypertension,copd, seizure 05/15 , syncope, nicotine dependence, bipolar disorder , CAD , s/p CABG 2012 . Pt [facility] at [facility] 09/28 -10/01 , transferred via ambulance due to unresponsiveness, s/p Narcan at bedside. Active Medications Acetaminophen (Tylenol -) 650 mg PO Q6H PRN PRN Reason: FEVER Amlodipine Besylate (Norvasc -) 10 mg PO DAILY [facility] Last Admin: 10/09/18 09:25 Dose: 10 mg Aspirin (Asa -) 81 mg PO DAILY [facility] Last Admin: 10/09/18 09:25 Dose: 81 mg Benztropine Mesylate (Cogentin -) 1 mg PO BID [facility] Last Admin: 10/09/18 09:25 Dose: 1 mg Clonidine HCl (Catapres Tts Patch -) 0.3 mg TD Q7D@1000 [facility] Last Admin: 10/06/18 17:45 Dose: 0.3 mg Heparin Sodium (Porcine) (Heparin -) 5,000 unit SQ BID [facility] Last Admin: 10/09/18 09:24 Dose: 5,000 unit Hydralazine HCl (Apresoline -) 10 mg PO Q8H PRN PRN Reason: HYPERTENSION Last Admin: 10/07/18 09:17 Dose: 10 mg Hydrochlorothiazide (Hctz -) 25 mg PO DAILY [facility] Last Admin: 10/09/18 09:25 Dose: 25 mg Levetiracetam (Keppra Oral Solution -) 500 mg PO BID [facility] Last Admin: 10/09/18 09:24 Dose: 500 mg Lisinopril (Prinivil) 20 mg PO DAILY [facility] Last Admin: 10/09/18 09:25 Dose: 20 mg Lorazepam (Ativan Injection -) 2 mg IM Q4H PRN PRN Reason: AGITATION Last Admin: 10/09/18 09:24 Dose: 2 mg Mirtazapine (Remeron -) 30 mg PO HS [facility] Last Admin: 10/08/18 22:02 Dose: 30 mg Risperidone (Risperdal -) 2 mg PO [facility] Last Admin: 10/08/18 22:02 Dose: 2 mg Objective: 10/09/18 15:06 wnwd , sleeping , responds to verbal stimuli howevere does not make eye contact or answer questions . Moving all extremities freely . CBC, BMP 10/07/18 07:00 10/07/18 07:00 Vital Signs - 24 hr 10/08/18 10/08/18 10/08/18 15:43 22:00 22:15 Temperature 98.7 F 98.2 F Pulse Rate 91 H 74 Respiratory 18 20 Rate Blood Pressure 165/85 126/75 O2 Sat by Pulse 97 Oximetry (%) 10/09/18 10/09/18 10/09/18 06:00 08:15 10:00 Temperature 98.2 F 98.9 F Pulse Rate 84 79 Respiratory 20 20 Rate Blood Pressure 102/66 102/60 O2 Sat by Pulse 95 Oximetry (%) 10/09/18 13:50 Temperature 98.5 F Pulse Rate 82 Respiratory 20 Rate Blood Pressure 96/62 O2 Sat by Pulse Oximetry (%) Assessment: opiate dependence alcohol dependence cocaine dependence nicotine dependence Plan: prn Ativan 1 mg q 4 hrs prn , 2 days, then 0.5 mg q 4 hrs prn x 1 day .
--- NOTE | 2018-10-09 15:22 | PN ---
Progress Note, Physician History of Present Illness: stable continues to be confused calm improving - Current Medication List Current Medications: Active Medications Acetaminophen (Tylenol -) 650 mg PO Q6H PRN PRN Reason: FEVER Amlodipine Besylate (Norvasc -) 10 mg PO DAILY [facility] Last Admin: 10/09/18 09:25 Dose: 10 mg Aspirin (Asa -) 81 mg PO DAILY [facility] Last Admin: 10/09/18 09:25 Dose: 81 mg Benztropine Mesylate (Cogentin -) 1 mg PO BID [facility] Last Admin: 10/09/18 09:25 Dose: 1 mg Clonidine HCl (Catapres Tts Patch -) 0.3 mg TD Q7D@1000 [facility] Last Admin: 10/06/18 17:45 Dose: 0.3 mg Heparin Sodium (Porcine) (Heparin -) 5,000 unit SQ BID [facility] Last Admin: 10/09/18 09:24 Dose: 5,000 unit Hydralazine HCl (Apresoline -) 10 mg PO Q8H PRN PRN Reason: HYPERTENSION Last Admin: 10/07/18 09:17 Dose: 10 mg Hydrochlorothiazide (Hctz -) 25 mg PO DAILY [facility] Last Admin: 10/09/18 09:25 Dose: 25 mg Levetiracetam (Keppra Oral Solution -) 500 mg PO BID [facility] Last Admin: 10/09/18 09:24 Dose: 500 mg Lisinopril (Prinivil) 20 mg PO DAILY [facility] Last Admin: 10/09/18 09:25 Dose: 20 mg Lorazepam (Ativan Injection -) 2 mg IM Q4H PRN PRN Reason: AGITATION Last Admin: 10/09/18 09:24 Dose: 2 mg Mirtazapine (Remeron -) 30 mg PO [facility] Last Admin: 10/08/18 22:02 Dose: 30 mg Risperidone (Risperdal -) 2 mg PO HS [facility] Last Admin: 10/08/18 22:02 Dose: 2 mg - Objective Vital Signs: Vital Signs Temperature 98.5 F 10/09/18 13:50 Pulse Rate 82 10/09/18 13:50 Respiratory Rate 20 10/09/18 13:50 Blood Pressure 96/62 10/09/18 13:50 O2 Sat by Pulse Oximetry (%) 95 10/09/18 08:15 Constitutional: Yes: No Distress, Calm Cardiovascular: Yes: S1, S2 Respiratory: Yes: Regular, Poor Air Entry (bases) Gastrointestinal: Yes: Normal Bowel Sounds, Soft Musculoskeletal: Yes: WNL Extremities: Yes: Other Neurological: Yes: Alert, Other Psychiatric: Yes: Other Labs: CBC, BMP 10/07/18 07:00 10/07/18 07:00 INR, PTT INR 1.01 (0.83-1.09) 10/01/18 09:42 Assessment/Plan 58 yo M with PMHx of HTN, CAD(stent placed in 1999), COPD, seizure disorder,CABG ,GERD, and polysubstance abuse brought in by EMS today for evaluation of altered mental status admitted to ICU s/p intubation and need for cardiac monitoring. ams resp failure htn withdrawl plan continue to monitor sitter with the patient anxious restless but improving rest continue current mgmt nutrition
--- NOTE | 2018-10-09 19:21 | PN ---
Progress Note, Physician History of Present Illness: drowsy - Current Medication List Current Medications: Active Medications Acetaminophen (Tylenol -) 650 mg PO Q6H PRN PRN Reason: FEVER Amlodipine Besylate (Norvasc -) 10 mg PO DAILY [facility] Last Admin: 10/09/18 09:25 Dose: 10 mg Aspirin (Asa -) 81 mg PO DAILY [facility] Last Admin: 10/09/18 09:25 Dose: 81 mg Benztropine Mesylate (Cogentin -) 1 mg PO BID [facility] Last Admin: 10/09/18 09:25 Dose: 1 mg Clonidine HCl (Catapres Tts Patch -) 0.3 mg TD Q7D@1000 [facility] Last Admin: 10/06/18 17:45 Dose: 0.3 mg Heparin Sodium (Porcine) (Heparin -) 5,000 unit SQ BID [facility] Last Admin: 10/09/18 09:24 Dose: 5,000 unit Hydralazine HCl (Apresoline -) 10 mg PO Q8H PRN PRN Reason: HYPERTENSION Last Admin: 10/07/18 09:17 Dose: 10 mg Hydrochlorothiazide (Hctz -) 25 mg PO DAILY [facility] Last Admin: 10/09/18 09:25 Dose: 25 mg Levetiracetam (Keppra Oral Solution -) 500 mg PO BID [facility] Last Admin: 10/09/18 09:24 Dose: 500 mg Lisinopril (Prinivil) 20 mg PO DAILY [facility] Last Admin: 10/09/18 09:25 Dose: 20 mg Lorazepam (Ativan -) 0.5 mg PO Q4H PRN PRN Reason: Symptoms of Withdrawal Stop: 10/12/18 22:59 Lorazepam (Ativan -) 1 mg PO Q4H PRN PRN Reason: Symptoms of Withdrawal Stop: 10/10/18 18:25 Mirtazapine (Remeron -) 30 mg PO HS [facility] Last Admin: 10/08/18 22:02 Dose: 30 mg Risperidone (Risperdal -) 2 mg PO HS [facility] Last Admin: 10/08/18 22:02 Dose: 2 mg - Objective Vital Signs: Vital Signs Temperature 98.5 F 10/09/18 13:50 Pulse Rate 82 10/09/18 13:50 Respiratory Rate 20 10/09/18 13:50 Blood Pressure 96/62 10/09/18 13:50 O2 Sat by Pulse Oximetry (%) 95 10/09/18 08:15 HENT: Yes: Atraumatic Neck: Yes: Supple Cardiovascular: Yes: Regular Rate and Rhythm Respiratory: Yes: CTA Bilaterally, Rhonchi Gastrointestinal: Yes: Normal Bowel Sounds Extremities: Yes: WNL Edema: No Peripheral Pulses WNL: Yes Neurological: Yes: Other (AWAKE) Labs: CBC, BMP 10/07/18 07:00 10/07/18 07:00 INR, PTT INR 1.01 (0.83-1.09) 10/01/18 09:42 Problem List - Problems (1) Alcohol dependence with uncomplicated withdrawal Assessment/Plan: on prn ativan tyrese prn psych eval done on 1:1 Code(s): F10.230 - ALCOHOL DEPENDENCE WITH WITHDRAWAL, UNCOMPLICATED (2) CAD (coronary artery disease) of artery bypass graft Assessment/Plan: continue cardiac meds cardiology on board Code(s): I25.810 - ATHEROSCLEROSIS OF CABG W/O ANGINA PECTORIS (3) Cannabis dependence Code(s): F12.20 - CANNABIS DEPENDENCE, UNCOMPLICATED (4) Elevated troponin Assessment/Plan: trended down cardio note reviewed monitor Code(s): R74.8 - ABNORMAL LEVELS OF OTHER SERUM ENZYMES (5) Opioid dependence with withdrawal Code(s): F11.23 - OPIOID DEPENDENCE WITH WITHDRAWAL (6) Gastroesophageal reflux disease Code(s): K21.9 - GASTRO-ESOPHAGEAL REFLUX DISEASE WITHOUT ESOPHAGITIS (7) Hypercholesterolemia Assessment/Plan: on meds stable Code(s): E78.0 - PURE HYPERCHOLESTEROLEMIA * DO NOT USE * (9) Schizoaffective disorder Code(s): F25.9 - SCHIZOAFFECTIVE DISORDER, UNSPECIFIED (10) Bipolar disorder Code(s): F31.9 - BIPOLAR DISORDER, UNSPECIFIED (11) Cocaine dependence Code(s): F14.20 - COCAINE DEPENDENCE, UNCOMPLICATED (12) Nicotine dependence Code(s): F17.200 - NICOTINE DEPENDENCE, UNSPECIFIED, UNCOMPLICATED (13) HTN (hypertension) Assessment/Plan: on meds monitor Code(s): I10 - ESSENTIAL (PRIMARY) HYPERTENSION (14) Alcohol abuse Code(s): F10.10 - ALCOHOL ABUSE, UNCOMPLICATED
[2018-10-09] MEDS: LORazepam 1 MG TABLET PO PRN (20:43)
[2018-10-09] MEDS ORDERED: PT OWN MED DRAWER 7, Y5N ONE (21:04)
[2018-10-09] MEDS: MIRTAZAPINE 30 MG TABLET (FP) PO SCH (21:12)
[2018-10-09] MEDS: risperiDONE 1 MG TABLET (FP) PO SCH (21:13)
[2018-10-10] MEDS: LORazepam 1 MG TABLET PO PRN ×2 (07:55→17:12)
[2018-10-10] MEDS: ASPIRIN 81 MG CHEWABLE TABLETS PO SCH (10:03)
[2018-10-10] MEDS: HEPARIN NA (PORCINE) 5,000 UNITS/ML 1ML VIAL SQ SCH ×2 (10:03→21:15)
[2018-10-10] MEDS: HYDROCHLOROTHIAZIDE 25 MG TABLET (FP) PO SCH (10:04)
[2018-10-10] MEDS: LISINOPRIL 20 MG TABLET (FP) PO SCH (10:04)
[2018-10-10] MEDS: amLODIPine BESYLATE 10 MG TABLET (FP) PO SCH (10:04)
[2018-10-10] MEDS ORDERED: PT OWN MED DRAWER 7, Y5N ONE ×3 (10:05→21:10)
[2018-10-10] MEDS: BENZTROPINE MESYLATE 1 MG TABLET (FP) PO SCH ×2 (10:06→23:36)
[2018-10-10] MEDS: levETIRAcetam 500 MG/5 ML ORAL SOLUTION (UNIT-DOSE CUPS) PO SCH ×2 (10:06→21:15)
--- NOTE | 2018-10-10 10:34 | PN ---
Progress Note, TRANSPORTATION JOB TITLES - Note Progress Note: Selected Entries 10/09/18 10/09/18 10/09/18 06:00 10:00 10:12 Breakfast 50% Lunch 25% Supper Temperature 98.2 F 98.9 F 10/09/18 10/09/18 10/09/18 13:50 18:00 22:00 Breakfast Lunch Supper 0 Temperature 98.5 F 98.0 F 98.9 F 10/10/18 10/10/18 10/10/18 01:00 05:00 09:52 Breakfast Lunch Supper Temperature 97.7 F 97.9 F 97.7 F Has been combative/agitated. Lethargic for. Has 1:1 sitter. On puree/nectar. Refusing most PO trials.
--- NOTE | 2018-10-10 12:29 | PN ---
Progress Note (short form) - Note Progress Note: PULMONARY Arousable VSS/AFEBRILE Gen: appears chronically ill Heart: RRR Lung: poor effort Abd: soft, nontender Ext: no edema CHART REVIEWED LABS/MICRO/IMAGES NOTED Active Medications noted Nl Aa gredient indicative of hypoventilation A/P Altered Mental Status Acute Hypercapneic Respiratory Failure/hypoventilation Pneumonia likely Aspiration Acute COPD Exacerbation Acute Kidney Injury CAD s/p CABG +Troponins likely Demand Ischemia HTN Polysubstance Abuse Seizure Disorder - completed antibiotics - inhaled bronchodilators - O2 to keep Spo2 >90% - aspiration precautions - DVT prophylaxis - R FILIPPO GUZMAN
--- NOTE | 2018-10-10 14:16 | PN ---
Progress Note, Physician History of Present Illness: continues to improve more awake and alert - Current Medication List Current Medications: Active Medications Acetaminophen (Tylenol -) 650 mg PO Q6H PRN PRN Reason: FEVER Last Admin: 10/09/18 20:43 Dose: 650 mg Amlodipine Besylate (Norvasc -) 10 mg PO DAILY [facility] Last Admin: 10/10/18 10:04 Dose: 10 mg Aspirin (Asa -) 81 mg PO DAILY [facility] Last Admin: 10/10/18 10:03 Dose: 81 mg Benztropine Mesylate (Cogentin -) 1 mg PO BID [facility] Last Admin: 10/10/18 10:06 Dose: 1 mg Clonidine HCl (Catapres Tts Patch -) 0.3 mg TD Q7D@1000 [facility] Last Admin: 10/06/18 17:45 Dose: 0.3 mg Heparin Sodium (Porcine) (Heparin -) 5,000 unit SQ BID [facility] Last Admin: 10/10/18 10:03 Dose: 5,000 unit Hydralazine HCl (Apresoline -) 10 mg PO Q8H PRN PRN Reason: HYPERTENSION Last Admin: 10/07/18 09:17 Dose: 10 mg Hydrochlorothiazide (Hctz -) 25 mg PO DAILY [facility] Last Admin: 10/10/18 10:04 Dose: 25 mg Levetiracetam (Keppra Oral Solution -) 500 mg PO BID [facility] Last Admin: 10/10/18 10:06 Dose: 500 mg Lisinopril (Prinivil) 20 mg PO DAILY [facility] Last Admin: 10/10/18 10:04 Dose: 20 mg Lorazepam (Ativan -) 0.5 mg PO Q4H PRN PRN Reason: Symptoms of Withdrawal Stop: 10/12/18 22:59 Lorazepam (Ativan -) 1 mg PO Q4H PRN PRN Reason: Symptoms of Withdrawal Stop: 10/10/18 18:25 Last Admin: 10/10/18 07:55 Dose: 1 mg Mirtazapine (Remeron -) 30 mg PO [facility] Last Admin: 10/09/18 21:12 Dose: 30 mg Risperidone (Risperdal -) 2 mg PO HS [facility] Last Admin: 10/09/18 21:13 Dose: 2 mg - Objective Vital Signs: Vital Signs Temperature 97.7 F 10/10/18 09:52 Pulse Rate 81 10/10/18 09:52 Respiratory Rate 18 10/10/18 09:52 Blood Pressure 107/18 L 10/10/18 09:52 O2 Sat by Pulse Oximetry (%) 95 10/10/18 10:00 Constitutional: Yes: No Distress, Calm Cardiovascular: Yes: S1, S2 Musculoskeletal: Yes: WNL Extremities: Yes: WNL Neurological: Yes: Alert, Other Psychiatric: Yes: Other Labs: CBC, BMP 10/07/18 07:00 10/07/18 07:00 INR, PTT INR 1.01 (0.83-1.09) 10/01/18 09:42 Assessment/Plan 58 yo M with PMHx of HTN, CAD(stent placed in 1999), COPD, seizure disorder,CABG ,GERD, and polysubstance abuse brought in by EMS today for evaluation of altered mental status admitted to ICU s/p intubation and need for cardiac monitoring. ams resp failure htn withdrawl plan continue to monitor calm improving nutrition rest as per the team
--- NOTE | 2018-10-10 17:59 | PN ---
Progress Note, Physician History of Present Illness: more alert today - Current Medication List Current Medications: Active Medications Acetaminophen (Tylenol -) 650 mg PO Q6H PRN PRN Reason: FEVER Last Admin: 10/09/18 20:43 Dose: 650 mg Amlodipine Besylate (Norvasc -) 10 mg PO DAILY [facility] Last Admin: 10/10/18 10:04 Dose: 10 mg Aspirin (Asa -) 81 mg PO DAILY [facility] Last Admin: 10/10/18 10:03 Dose: 81 mg Benztropine Mesylate (Cogentin -) 1 mg PO BID [facility] Last Admin: 10/10/18 10:06 Dose: 1 mg Clonidine HCl (Catapres Tts Patch -) 0.3 mg TD Q7D@1000 [facility] Last Admin: 10/06/18 17:45 Dose: 0.3 mg Heparin Sodium (Porcine) (Heparin -) 5,000 unit SQ BID [facility] Last Admin: 10/10/18 10:03 Dose: 5,000 unit Hydralazine HCl (Apresoline -) 10 mg PO Q8H PRN PRN Reason: HYPERTENSION Last Admin: 10/07/18 09:17 Dose: 10 mg Hydrochlorothiazide (Hctz -) 25 mg PO DAILY [facility] Last Admin: 10/10/18 10:04 Dose: 25 mg Levetiracetam (Keppra Oral Solution -) 500 mg PO BID [facility] Last Admin: 10/10/18 10:06 Dose: 500 mg Lisinopril (Prinivil) 20 mg PO DAILY [facility] Last Admin: 10/10/18 10:04 Dose: 20 mg Lorazepam (Ativan -) 0.5 mg PO Q4H PRN PRN Reason: Symptoms of Withdrawal Stop: 10/12/18 22:59 Lorazepam (Ativan -) 1 mg PO Q4H PRN PRN Reason: Symptoms of Withdrawal Stop: 10/10/18 18:25 Last Admin: 10/10/18 17:12 Dose: 1 mg Mirtazapine (Remeron -) 30 mg PO [facility] Last Admin: 10/09/18 21:12 Dose: 30 mg Risperidone (Risperdal -) 2 mg PO HS [facility] Last Admin: 10/09/18 21:13 Dose: 2 mg - Objective Vital Signs: Vital Signs Temperature 98.2 F 10/10/18 14:14 Pulse Rate 74 10/10/18 14:14 Respiratory Rate 20 10/10/18 14:14 Blood Pressure 110/71 10/10/18 14:14 O2 Sat by Pulse Oximetry (%) 95 10/10/18 10:00 Constitutional: Yes: No Distress HENT: Yes: Atraumatic Neck: Yes: Supple Cardiovascular: Yes: Regular Rate and Rhythm Respiratory: Yes: CTA Bilaterally Gastrointestinal: Yes: Normal Bowel Sounds Extremities: Yes: WNL Edema: No Peripheral Pulses WNL: Yes Neurological: Yes: Alert Labs: CBC, BMP 10/07/18 07:00 10/07/18 07:00 INR, PTT INR 1.01 (0.83-1.09) 10/01/18 09:42 Problem List - Problems (1) Alcohol dependence with uncomplicated withdrawal Assessment/Plan: on prn ativan tyrese prn psych eval done on 1:1 Code(s): F10.230 - ALCOHOL DEPENDENCE WITH WITHDRAWAL, UNCOMPLICATED (2) CAD (coronary artery disease) of artery bypass graft Assessment/Plan: continue cardiac meds cardiology on board Code(s): I25.810 - ATHEROSCLEROSIS OF CABG W/O ANGINA PECTORIS (3) Cannabis dependence Code(s): F12.20 - CANNABIS DEPENDENCE, UNCOMPLICATED (4) Elevated troponin Assessment/Plan: trended down cardio note reviewed monitor Code(s): R74.8 - ABNORMAL LEVELS OF OTHER SERUM ENZYMES (5) Opioid dependence with withdrawal Code(s): F11.23 - OPIOID DEPENDENCE WITH WITHDRAWAL (6) Gastroesophageal reflux disease Code(s): K21.9 - GASTRO-ESOPHAGEAL REFLUX DISEASE WITHOUT ESOPHAGITIS (7) Hypercholesterolemia Code(s): E78.0 - PURE HYPERCHOLESTEROLEMIA * DO NOT USE * (9) Schizoaffective disorder Code(s): F25.9 - SCHIZOAFFECTIVE DISORDER, UNSPECIFIED (10) Bipolar disorder Code(s): F31.9 - BIPOLAR DISORDER, UNSPECIFIED (11) Cocaine dependence Code(s): F14.20 - COCAINE DEPENDENCE, UNCOMPLICATED (12) Nicotine dependence Code(s): F17.200 - NICOTINE DEPENDENCE, UNSPECIFIED, UNCOMPLICATED (13) HTN (hypertension) Code(s): I10 - ESSENTIAL (PRIMARY) HYPERTENSION (14) Alcohol abuse Code(s): F10.10 - ALCOHOL ABUSE, UNCOMPLICATED
[2018-10-10] MEDS: MIRTAZAPINE 30 MG TABLET (FP) PO SCH (21:15)
[2018-10-10] MEDS: risperiDONE 1 MG TABLET (FP) PO SCH (21:15)
[2018-10-11] MEDS: LORazepam 0.5 MG TABLET PO PRN ×2 (02:42→22:33)
[2018-10-11 08:29] LABS: BASO % 0.1 % (0-2.0); HEMATOCRIT 33.7 % (35.4-49); HEMOGLOBIN 11.4 GM/dL (11.7-16.9); LYMPH % 23.3 % (8-40); MCH 28.8 pg (25.7-33.7); MCHC 33.9 g/dl (32.0-35.9); MEAN PLT VOLUME 7.9 fl (7.5-11.1); MONO % 8.8 % (3.8-10.2); NEUT % 65.8 % (42.8-82.8); PLATELET COUNT 242 K/MM3 (134-434); RBC 3.97 M/mm3 (4.00-5.60); RDW 16.1 % (11.9-15.9); WHITE BLOOD COUNT 4.7 K/mm3 (4.0-10.0)
[2018-10-11 08:34] LABS: ALK PHOS 73 U/L (45-117); ANION GAP 4 MMOL/L (8-16); BILIRUBIN,TOTAL 0.3 mg/dL (0.2-1); BLOOD UREA NITROGEN 32 mg/dL (7-18); CALCIUM 9.1 mg/dL (8.5-10.1); CHLORIDE 103 mmol/L (98-107); CO2 31 mmol/L (21-32); CREATININE 1.2 mg/dL (0.55-1.3); GLUCOSE,RANDOM 86 mg/dL (74-106); POTASSIUM 3.9 mmol/L (3.5-5.1); SGOT/AST 12 U/L (15-37); SGPT/ALT 18 U/L (13-61); SODIUM 138 mmol/L (136-145); TOT PROT 6.3 g/dl (6.4-8.2)
[2018-10-11] MEDS: HYDROCHLOROTHIAZIDE 25 MG TABLET (FP) PO SCH (10:17)
[2018-10-11] MEDS: LISINOPRIL 20 MG TABLET (FP) PO SCH (10:17)
[2018-10-11] MEDS: amLODIPine BESYLATE 10 MG TABLET (FP) PO SCH (10:17)
[2018-10-11] MEDS ORDERED: PT OWN MED DRAWER 7, Y5N ONE ×2 (10:20→21:31)
[2018-10-11] MEDS: HEPARIN NA (PORCINE) 5,000 UNITS/ML 1ML VIAL SQ SCH ×2 (10:21→21:33)
[2018-10-11] MEDS: levETIRAcetam 500 MG/5 ML ORAL SOLUTION (UNIT-DOSE CUPS) PO SCH ×2 (10:21→21:33)
[2018-10-11] MEDS: ASPIRIN 81 MG CHEWABLE TABLETS PO SCH (10:22)
[2018-10-11] MEDS: BENZTROPINE MESYLATE 1 MG TABLET (FP) PO SCH ×2 (10:22→21:33)
--- NOTE | 2018-10-11 15:36 | PN ---
Progress Note, Physician - Current Medication List Current Medications: Active Medications Acetaminophen (Tylenol -) 650 mg PO Q6H PRN PRN Reason: FEVER Last Admin: 10/09/18 20:43 Dose: 650 mg Amlodipine Besylate (Norvasc -) 10 mg PO DAILY [facility] Last Admin: 10/11/18 10:17 Dose: Not Given Aspirin (Asa -) 81 mg PO DAILY [facility] Last Admin: 10/11/18 10:22 Dose: 81 mg Benztropine Mesylate (Cogentin -) 1 mg PO BID [facility] Last Admin: 10/11/18 10:22 Dose: 1 mg Clonidine HCl (Catapres Tts Patch -) 0.3 mg TD Q7D@1000 [facility] Last Admin: 10/06/18 17:45 Dose: 0.3 mg Heparin Sodium (Porcine) (Heparin -) 5,000 unit SQ BID [facility] Last Admin: 10/11/18 10:21 Dose: 5,000 unit Hydralazine HCl (Apresoline -) 10 mg PO Q8H PRN PRN Reason: HYPERTENSION Last Admin: 10/07/18 09:17 Dose: 10 mg Hydrochlorothiazide (Hctz -) 25 mg PO DAILY [facility] Last Admin: 10/11/18 10:17 Dose: Not Given Levetiracetam (Keppra Oral Solution -) 500 mg PO BID [facility] Last Admin: 10/11/18 10:21 Dose: 500 mg Lisinopril (Prinivil) 20 mg PO DAILY [facility] Last Admin: 10/11/18 10:17 Dose: Not Given Lorazepam (Ativan -) 0.5 mg PO Q4H PRN PRN Reason: Symptoms of Withdrawal Stop: 10/12/18 02:36 Last Admin: 10/11/18 02:42 Dose: 0.5 mg Mirtazapine (Remeron -) 30 mg PO HS [facility] Last Admin: 10/10/18 21:15 Dose: 30 mg Risperidone (Risperdal -) 2 mg PO HS [facility] Last Admin: 10/10/18 21:15 Dose: 2 mg - Objective Vital Signs: Vital Signs Temperature 97.8 F 10/11/18 10:17 Pulse Rate 76 10/11/18 10:17 Respiratory Rate 16 10/11/18 10:17 Blood Pressure 98/68 10/11/18 10:17 O2 Sat by Pulse Oximetry (%) 95 10/11/18 10:00 Constitutional: Yes: No Distress HENT: Yes: Atraumatic Neck: Yes: Supple Cardiovascular: Yes: Regular Rate and Rhythm Respiratory: Yes: CTA Bilaterally Gastrointestinal: Yes: Normal Bowel Sounds Extremities: Yes: WNL Edema: No Peripheral Pulses WNL: Yes Neurological: Yes: Alert, Oriented Labs: CBC, BMP 10/11/18 07:10 10/11/18 07:10 INR, PTT INR 1.01 (0.83-1.09) 10/01/18 09:42 Problem List - Problems (1) Alcohol dependence with uncomplicated withdrawal Assessment/Plan: on prn ativan tyrese prn psych eval done on 1:1 Code(s): F10.230 - ALCOHOL DEPENDENCE WITH WITHDRAWAL, UNCOMPLICATED (2) CAD (coronary artery disease) of artery bypass graft Assessment/Plan: continue cardiac meds cardiology on board Code(s): I25.810 - ATHEROSCLEROSIS OF CABG W/O ANGINA PECTORIS (3) Cannabis dependence Code(s): F12.20 - CANNABIS DEPENDENCE, UNCOMPLICATED (4) Elevated troponin Assessment/Plan: trended down cardio note reviewed monitor Code(s): R74.8 - ABNORMAL LEVELS OF OTHER SERUM ENZYMES (5) Opioid dependence with withdrawal Code(s): F11.23 - OPIOID DEPENDENCE WITH WITHDRAWAL (6) Gastroesophageal reflux disease Code(s): K21.9 - GASTRO-ESOPHAGEAL REFLUX DISEASE WITHOUT ESOPHAGITIS (7) Hypercholesterolemia Assessment/Plan: on meds stable Code(s): E78.0 - PURE HYPERCHOLESTEROLEMIA * DO NOT USE * (9) Schizoaffective disorder Code(s): F25.9 - SCHIZOAFFECTIVE DISORDER, UNSPECIFIED (10) Bipolar disorder Code(s): F31.9 - BIPOLAR DISORDER, UNSPECIFIED (11) Cocaine dependence Code(s): F14.20 - COCAINE DEPENDENCE, UNCOMPLICATED (12) Nicotine dependence Code(s): F17.200 - NICOTINE DEPENDENCE, UNSPECIFIED, UNCOMPLICATED (13) HTN (hypertension) Code(s): I10 - ESSENTIAL (PRIMARY) HYPERTENSION (14) Alcohol abuse Code(s): F10.10 - ALCOHOL ABUSE, UNCOMPLICATED
--- NOTE | 2018-10-11 17:19 | PN ---
Progress Note, Physician History of Present Illness: Pt seen and examined. Events noted. He remains afebrile, without acute distress - Current Medication List Current Medications: Active Medications Acetaminophen (Tylenol -) 650 mg PO Q6H PRN PRN Reason: FEVER Last Admin: 10/09/18 20:43 Dose: 650 mg Amlodipine Besylate (Norvasc -) 10 mg PO DAILY [facility] Last Admin: 10/11/18 10:17 Dose: Not Given Aspirin (Asa -) 81 mg PO DAILY [facility] Last Admin: 10/11/18 10:22 Dose: 81 mg Benztropine Mesylate (Cogentin -) 1 mg PO BID [facility] Last Admin: 10/11/18 10:22 Dose: 1 mg Clonidine HCl (Catapres Tts Patch -) 0.3 mg TD Q7D@1000 [facility] Last Admin: 10/06/18 17:45 Dose: 0.3 mg Heparin Sodium (Porcine) (Heparin -) 5,000 unit SQ BID [facility] Last Admin: 10/11/18 10:21 Dose: 5,000 unit Hydralazine HCl (Apresoline -) 10 mg PO Q8H PRN PRN Reason: HYPERTENSION Last Admin: 10/07/18 09:17 Dose: 10 mg Hydrochlorothiazide (Hctz -) 25 mg PO DAILY [facility] Last Admin: 10/11/18 10:17 Dose: Not Given Levetiracetam (Keppra Oral Solution -) 500 mg PO BID [facility] Last Admin: 10/11/18 10:21 Dose: 500 mg Lisinopril (Prinivil) 20 mg PO DAILY [facility] Last Admin: 10/11/18 10:17 Dose: Not Given Lorazepam (Ativan -) 0.5 mg PO Q4H PRN PRN Reason: Symptoms of Withdrawal Stop: 10/12/18 02:36 Last Admin: 10/11/18 02:42 Dose: 0.5 mg Mirtazapine (Remeron -) 30 mg PO HS [facility] Last Admin: 10/10/18 21:15 Dose: 30 mg Risperidone (Risperdal -) 2 mg PO HS [facility] Last Admin: 10/10/18 21:15 Dose: 2 mg - Objective Vital Signs: Vital Signs Temperature 97.8 F 10/11/18 10:17 Pulse Rate 76 10/11/18 10:17 Respiratory Rate 16 10/11/18 10:17 Blood Pressure 98/68 10/11/18 10:17 O2 Sat by Pulse Oximetry (%) 95 10/11/18 10:00 Constitutional: Yes: No Distress Cardiovascular: Yes: Regular Rate and Rhythm Respiratory: Yes: Regular Gastrointestinal: Yes: Normal Bowel Sounds, Soft Neurological: Yes: Weakness Labs: CBC, BMP 10/11/18 07:10 10/11/18 07:10 INR, PTT INR 1.01 (0.83-1.09) 10/01/18 09:42 Problem List - Problems (1) HTN (hypertension) Code(s): I10 - ESSENTIAL (PRIMARY) HYPERTENSION (2) Gastroesophageal reflux disease Code(s): K21.9 - GASTRO-ESOPHAGEAL REFLUX DISEASE WITHOUT ESOPHAGITIS (3) Hypercholesterolemia Code(s): E78.0 - PURE HYPERCHOLESTEROLEMIA * DO NOT USE * (5) Alcohol dependence with uncomplicated withdrawal Code(s): F10.230 - ALCOHOL DEPENDENCE WITH WITHDRAWAL, UNCOMPLICATED (6) Bipolar disorder Code(s): F31.9 - BIPOLAR DISORDER, UNSPECIFIED Assessment/Plan AMS PNA COPD Exacerbation FABRICE Polysubstance abuse Seizure d.o. -- cultures negative -- s/p course of antibiotics cont. monitor off antibiotics
[2018-10-11] MEDS: risperiDONE 1 MG TABLET (FP) PO SCH (21:33)
[2018-10-11] MEDS: MIRTAZAPINE 30 MG TABLET (FP) PO SCH (21:33)
[2018-10-12] MEDS ORDERED: PT OWN MED DRAWER 7, Y5N ONE ×2 (09:47→22:09)
[2018-10-12] MEDS: BENZTROPINE MESYLATE 1 MG TABLET (FP) PO SCH ×2 (09:58→22:14)
[2018-10-12] MEDS: LISINOPRIL 20 MG TABLET (FP) PO SCH (09:59)
[2018-10-12] MEDS: levETIRAcetam 500 MG/5 ML ORAL SOLUTION (UNIT-DOSE CUPS) PO SCH ×2 (09:59→22:14)
[2018-10-12] MEDS: amLODIPine BESYLATE 10 MG TABLET (FP) PO SCH (09:59)
[2018-10-12] MEDS: ASPIRIN 81 MG CHEWABLE TABLETS PO SCH (09:59)
[2018-10-12] MEDS: HYDROCHLOROTHIAZIDE 25 MG TABLET (FP) PO SCH (09:59)
--- NOTE | 2018-10-12 13:06 | PN ---
Progress Note, Physician History of Present Illness: Pt easily arousable. No SOB, remains afebrile. No new events. - Current Medication List Current Medications: Active Medications Acetaminophen (Tylenol -) 650 mg PO Q6H PRN PRN Reason: FEVER Last Admin: 10/09/18 20:43 Dose: 650 mg Amlodipine Besylate (Norvasc -) 10 mg PO DAILY [facility] Last Admin: 10/12/18 09:59 Dose: Not Given Aspirin (Asa -) 81 mg PO DAILY [facility] Last Admin: 10/12/18 09:59 Dose: 81 mg Benztropine Mesylate (Cogentin -) 1 mg PO BID [facility] Last Admin: 10/12/18 09:58 Dose: 1 mg Clonidine HCl (Catapres Tts Patch -) 0.3 mg TD Q7D@1000 [facility] Last Admin: 10/06/18 17:45 Dose: 0.3 mg Heparin Sodium (Porcine) (Heparin -) 5,000 unit SQ BID [facility] Last Admin: 10/11/18 21:33 Dose: 5,000 unit Hydralazine HCl (Apresoline -) 10 mg PO Q8H PRN PRN Reason: HYPERTENSION Last Admin: 10/07/18 09:17 Dose: 10 mg Hydrochlorothiazide (Hctz -) 25 mg PO DAILY [facility] Last Admin: 10/12/18 09:59 Dose: 25 mg Levetiracetam (Keppra Oral Solution -) 500 mg PO BID [facility] Last Admin: 10/12/18 09:59 Dose: 500 mg Lisinopril (Prinivil) 20 mg PO DAILY [facility] Last Admin: 10/12/18 09:59 Dose: Not Given Mirtazapine (Remeron -) 30 mg PO [facility] Last Admin: 10/11/18 21:33 Dose: 30 mg Risperidone (Risperdal -) 2 mg PO [facility] Last Admin: 10/11/18 21:33 Dose: 2 mg - Objective Vital Signs: Vital Signs Temperature 97.7 F 10/12/18 06:13 Pulse Rate 72 10/12/18 06:13 Respiratory Rate 20 10/12/18 06:13 Blood Pressure 106/58 L 10/12/18 06:13 O2 Sat by Pulse Oximetry (%) 96 10/11/18 22:00 Constitutional: Yes: No Distress, Calm Cardiovascular: Yes: Regular Rate and Rhythm Respiratory: Yes: CTA Bilaterally Gastrointestinal: Yes: Normal Bowel Sounds, Soft Integumentary: Yes: WNL Labs: CBC, BMP 10/11/18 07:10 10/11/18 07:10 INR, PTT INR 1.01 (0.83-1.09) 10/01/18 09:42 Problem List - Problems (1) HTN (hypertension) Code(s): I10 - ESSENTIAL (PRIMARY) HYPERTENSION (2) Gastroesophageal reflux disease Code(s): K21.9 - GASTRO-ESOPHAGEAL REFLUX DISEASE WITHOUT ESOPHAGITIS (3) Hypercholesterolemia Code(s): E78.0 - PURE HYPERCHOLESTEROLEMIA * DO NOT USE * (5) Alcohol dependence with uncomplicated withdrawal Code(s): F10.230 - ALCOHOL DEPENDENCE WITH WITHDRAWAL, UNCOMPLICATED (6) Bipolar disorder Code(s): F31.9 - BIPOLAR DISORDER, UNSPECIFIED Assessment/Plan AMS PNA - s/p treatment COPD Exacerbation FABRICE Polysubstance abuse Seizure d.o. -- pt remains afebrile, without respiratory distress -- monitor off antibiotics
--- NOTE | 2018-10-12 19:23 | PN ---
Progress Note, Physician History of Present Illness: Pt in wheelchair and no complaints - Current Medication List Current Medications: Active Medications Acetaminophen (Tylenol -) 650 mg PO Q6H PRN PRN Reason: FEVER Last Admin: 10/09/18 20:43 Dose: 650 mg Amlodipine Besylate (Norvasc -) 10 mg PO DAILY [facility] Last Admin: 10/12/18 09:59 Dose: Not Given Aspirin (Asa -) 81 mg PO DAILY [facility] Last Admin: 10/12/18 09:59 Dose: 81 mg Benztropine Mesylate (Cogentin -) 1 mg PO BID [facility] Last Admin: 10/12/18 09:58 Dose: 1 mg Clonidine HCl (Catapres Tts Patch -) 0.3 mg TD Q7D@1000 [facility] Last Admin: 10/06/18 17:45 Dose: 0.3 mg Heparin Sodium (Porcine) (Heparin -) 5,000 unit SQ BID [facility] Last Admin: 10/11/18 21:33 Dose: 5,000 unit Hydralazine HCl (Apresoline -) 10 mg PO Q8H PRN PRN Reason: HYPERTENSION Last Admin: 10/07/18 09:17 Dose: 10 mg Hydrochlorothiazide (Hctz -) 25 mg PO DAILY [facility] Last Admin: 10/12/18 09:59 Dose: 25 mg Levetiracetam (Keppra Oral Solution -) 500 mg PO BID [facility] Last Admin: 10/12/18 09:59 Dose: 500 mg Lisinopril (Prinivil) 20 mg PO DAILY [facility] Last Admin: 10/12/18 09:59 Dose: Not Given Mirtazapine (Remeron -) 30 mg PO HS [facility] Last Admin: 10/11/18 21:33 Dose: 30 mg Risperidone (Risperdal -) 2 mg PO HS [facility] Last Admin: 10/11/18 21:33 Dose: 2 mg - Objective Vital Signs: Vital Signs Temperature 97.7 F 10/12/18 06:13 Pulse Rate 77 10/12/18 10:00 Respiratory Rate 18 10/12/18 10:00 Blood Pressure 104/44 L 10/12/18 10:00 O2 Sat by Pulse Oximetry (%) 96 10/11/18 22:00 Neck: Yes: WNL, Supple Cardiovascular: Yes: WNL, Regular Rate and Rhythm Respiratory: Yes: WNL, Regular, CTA Bilaterally Gastrointestinal: Yes: WNL, Normal Bowel Sounds, Soft Edema: No Labs: CBC, BMP 10/11/18 07:10 10/11/18 07:10 INR, PTT INR 1.01 (0.83-1.09) 10/01/18 09:42 Problem List - Problems (1) Pneumonia Assessment/Plan: Pt is now antibxs Cont to monitor Code(s): J18.9 - PNEUMONIA, UNSPECIFIED ORGANISM (2) Altered mental state Assessment/Plan: Due to metabolic encephalopathy/polysubstance abuse treated for etoh w/drawal As per psych/detox medicine Code(s): R41.82 - ALTERED MENTAL STATUS, UNSPECIFIED (3) Elevated troponin Assessment/Plan: As per cardio Code(s): R74.8 - ABNORMAL LEVELS OF OTHER SERUM ENZYMES (4) HTN (hypertension) Assessment/Plan: BP stable Cont norvasc/clonnidine/hydralazine/hctz/lisinopril Code(s): I10 - ESSENTIAL (PRIMARY) HYPERTENSION (5) Hypercholesterolemia Code(s): E78.0 - PURE HYPERCHOLESTEROLEMIA * DO NOT USE * (6) Pneumonia Code(s): J18.9 - PNEUMONIA, UNSPECIFIED ORGANISM
[2018-10-12] MEDS: HEPARIN NA (PORCINE) 5,000 UNITS/ML 1ML VIAL SQ SCH ×2 (20:56→22:14)
[2018-10-12] MEDS: MIRTAZAPINE 30 MG TABLET (FP) PO SCH (22:14)
[2018-10-12] MEDS: risperiDONE 1 MG TABLET (FP) PO SCH (22:14)
[2018-10-13] MEDS ORDERED: PT OWN MED DRAWER 7, Y5N ONE ×2 (09:19→21:25)
[2018-10-13] MEDS: BENZTROPINE MESYLATE 1 MG TABLET (FP) PO SCH ×2 (09:27→21:48)
[2018-10-13] MEDS: levETIRAcetam 500 MG/5 ML ORAL SOLUTION (UNIT-DOSE CUPS) PO SCH ×2 (09:27→21:48)
[2018-10-13] MEDS: amLODIPine BESYLATE 10 MG TABLET (FP) PO SCH (09:27)
[2018-10-13] MEDS: HEPARIN NA (PORCINE) 5,000 UNITS/ML 1ML VIAL SQ SCH (09:27)
[2018-10-13] MEDS: cloNIDine-TTS 0.3 MG /24 HRS PATCH.TDWK TD SCH (09:27)
[2018-10-13] MEDS: LISINOPRIL 20 MG TABLET (FP) PO SCH (09:27)
[2018-10-13] MEDS: HYDROCHLOROTHIAZIDE 25 MG TABLET (FP) PO SCH (09:27)
[2018-10-13] MEDS: ASPIRIN 81 MG CHEWABLE TABLETS PO SCH (09:27)
--- NOTE | 2018-10-13 10:23 | PN ---
Progress Note (short form) - Note Progress Note: Overall appears better. No acute events overnight. Intake & Output 10/10/18 10/11/18 10/12/18 10/13/18 23:59 23:59 23:59 23:59 Intake Total 350 600 800 Output Total 800 2 Balance -450 598 800 Weight 174 lb 3 oz 179 lb 6 oz 173 lb 2 oz Last Vital Signs Temp Pulse Resp BP Pulse Ox 97.9 F 74 20 116/63 96 10/13/18 09:22 10/13/18 09:22 10/13/18 09:22 10/13/18 09:22 10/12/18 22:00 Active Medications Acetaminophen (Tylenol -) 650 mg PO Q6H PRN PRN Reason: FEVER Last Admin: 10/09/18 20:43 Dose: 650 mg Amlodipine Besylate (Norvasc -) 10 mg PO DAILY [facility] Last Admin: 10/13/18 09:27 Dose: 10 mg Aspirin (Asa -) 81 mg PO DAILY [facility] Last Admin: 10/13/18 09:27 Dose: 81 mg Benztropine Mesylate (Cogentin -) 1 mg PO BID [facility] Last Admin: 10/13/18 09:27 Dose: 1 mg Clonidine HCl (Catapres Tts Patch -) 0.3 mg TD Q7D@1000 [facility] Last Admin: 10/13/18 09:27 Dose: 0.3 mg Heparin Sodium (Porcine) (Heparin -) 5,000 unit SQ BID [facility] Last Admin: 10/13/18 09:27 Dose: 5,000 unit Hydralazine HCl (Apresoline -) 10 mg PO Q8H PRN PRN Reason: HYPERTENSION Last Admin: 10/07/18 09:17 Dose: 10 mg Hydrochlorothiazide (Hctz -) 25 mg PO DAILY [facility] Last Admin: 10/13/18 09:27 Dose: 25 mg Levetiracetam (Keppra Oral Solution -) 500 mg PO BID [facility] Last Admin: 10/13/18 09:27 Dose: 500 mg Lisinopril (Prinivil) 20 mg PO DAILY [facility] Last Admin: 10/13/18 09:27 Dose: 20 mg Mirtazapine (Remeron -) 30 mg PO HS [facility] Last Admin: 10/12/18 22:14 Dose: 30 mg Risperidone (Risperdal -) 2 mg PO HS [facility] Last Admin: 10/12/18 22:14 Dose: 2 mg Gen: NAD Heart: RRR Lung: few scattered rhonchi Abd: soft, nontender Ext: no edema A/P Altered Mental Status improving Acute Hypercapneic Respiratory Failure improving Pneumonia likely Aspiration Acute COPD Exacerbation Acute Kidney Injury CAD s/p CABG +Troponins likely Demand Ischemia HTN Polysubstance Abuse Seizure Disorder - completed antibiotics - inhaled bronchodilators - O2 to keep Spo2 >90% - aspiration precautions - DVT prophylaxis - D/C planning Dr Katz
[2018-10-13 13:30] VITALS: BMI 24.8
--- NOTE | 2018-10-13 14:14 | PN ---
Progress Note, Physician History of Present Illness: continues to improve more awake and alert - Current Medication List Current Medications: Active Medications Acetaminophen (Tylenol -) 650 mg PO Q6H PRN PRN Reason: FEVER Last Admin: 10/09/18 20:43 Dose: 650 mg Amlodipine Besylate (Norvasc -) 10 mg PO DAILY [facility] Last Admin: 10/13/18 09:27 Dose: 10 mg Aspirin (Asa -) 81 mg PO DAILY [facility] Last Admin: 10/13/18 09:27 Dose: 81 mg Benztropine Mesylate (Cogentin -) 1 mg PO BID [facility] Last Admin: 10/13/18 09:27 Dose: 1 mg Clonidine HCl (Catapres Tts Patch -) 0.3 mg TD Q7D@1000 [facility] Last Admin: 10/13/18 09:27 Dose: 0.3 mg Heparin Sodium (Porcine) (Heparin -) 5,000 unit SQ BID [facility] Last Admin: 10/13/18 09:27 Dose: 5,000 unit Hydralazine HCl (Apresoline -) 10 mg PO Q8H PRN PRN Reason: HYPERTENSION Last Admin: 10/07/18 09:17 Dose: 10 mg Hydrochlorothiazide (Hctz -) 25 mg PO DAILY [facility] Last Admin: 10/13/18 09:27 Dose: 25 mg Levetiracetam (Keppra Oral Solution -) 500 mg PO BID [facility] Last Admin: 10/13/18 09:27 Dose: 500 mg Lisinopril (Prinivil) 20 mg PO DAILY [facility] Last Admin: 10/13/18 09:27 Dose: 20 mg Mirtazapine (Remeron -) 30 mg PO [facility] Last Admin: 10/12/18 22:14 Dose: 30 mg Risperidone (Risperdal -) 2 mg PO [facility] Last Admin: 10/12/18 22:14 Dose: 2 mg - Objective Vital Signs: Vital Signs Temperature 97.9 F 10/13/18 09:22 Pulse Rate 74 10/13/18 09:22 Respiratory Rate 20 10/13/18 09:22 Blood Pressure 116/63 10/13/18 09:22 O2 Sat by Pulse Oximetry (%) 96 10/12/18 22:00 Constitutional: Yes: No Distress, Calm Cardiovascular: Yes: S1, S2 Respiratory: Yes: Regular, CTA Bilaterally Gastrointestinal: Yes: Normal Bowel Sounds, Soft Musculoskeletal: Yes: WNL Extremities: Yes: WNL Neurological: Yes: Alert Labs: CBC, BMP 10/11/18 07:10 10/11/18 07:10 INR, PTT INR 1.01 (0.83-1.09) 10/01/18 09:42 Assessment/Plan Altered Mental Status improving Acute Hypercapneic Respiratory Failure improving Pneumonia likely Aspiration Acute COPD Exacerbation Acute Kidney Injury CAD s/p CABG +Troponins likely Demand Ischemia HTN Polysubstance Abuse Seizure Disorder plan continue current mgmt nutrition rest as per the team patient doing well
--- NOTE | 2018-10-13 18:42 | PN ---
Progress Note, Physician History of Present Illness: more alert today - Current Medication List Current Medications: Active Medications Acetaminophen (Tylenol -) 650 mg PO Q6H PRN PRN Reason: FEVER Last Admin: 10/09/18 20:43 Dose: 650 mg Amlodipine Besylate (Norvasc -) 10 mg PO DAILY [facility] Last Admin: 10/13/18 09:27 Dose: 10 mg Aspirin (Asa -) 81 mg PO DAILY [facility] Last Admin: 10/13/18 09:27 Dose: 81 mg Benztropine Mesylate (Cogentin -) 1 mg PO BID [facility] Last Admin: 10/13/18 09:27 Dose: 1 mg Clonidine HCl (Catapres Tts Patch -) 0.3 mg TD Q7D@1000 [facility] Last Admin: 10/13/18 09:27 Dose: 0.3 mg Heparin Sodium (Porcine) (Heparin -) 5,000 unit SQ BID [facility] Last Admin: 10/13/18 09:27 Dose: 5,000 unit Hydralazine HCl (Apresoline -) 10 mg PO Q8H PRN PRN Reason: HYPERTENSION Last Admin: 10/07/18 09:17 Dose: 10 mg Hydrochlorothiazide (Hctz -) 25 mg PO DAILY [facility] Last Admin: 10/13/18 09:27 Dose: 25 mg Levetiracetam (Keppra Oral Solution -) 500 mg PO BID [facility] Last Admin: 10/13/18 09:27 Dose: 500 mg Lisinopril (Prinivil) 20 mg PO DAILY [facility] Last Admin: 10/13/18 09:27 Dose: 20 mg Mirtazapine (Remeron -) 30 mg PO [facility] Last Admin: 10/12/18 22:14 Dose: 30 mg Risperidone (Risperdal -) 2 mg PO [facility] Last Admin: 10/12/18 22:14 Dose: 2 mg - Objective Vital Signs: Vital Signs Temperature 97.9 F 10/13/18 09:22 Pulse Rate 74 10/13/18 09:22 Respiratory Rate 20 10/13/18 09:22 Blood Pressure 116/63 10/13/18 09:22 O2 Sat by Pulse Oximetry (%) 96 10/12/18 22:00 Constitutional: Yes: No Distress HENT: Yes: Atraumatic Neck: Yes: Supple Cardiovascular: Yes: Regular Rate and Rhythm Respiratory: Yes: CTA Bilaterally Gastrointestinal: Yes: Normal Bowel Sounds Extremities: Yes: WNL Edema: No Neurological: Yes: Alert, Oriented Labs: CBC, BMP 10/11/18 07:10 10/11/18 07:10 INR, PTT INR 1.01 (0.83-1.09) 10/01/18 09:42 Problem List - Problems (1) Alcohol dependence with uncomplicated withdrawal Assessment/Plan: on prn ativan tyrese prn psych eval done on 1:1 Code(s): F10.230 - ALCOHOL DEPENDENCE WITH WITHDRAWAL, UNCOMPLICATED (2) CAD (coronary artery disease) of artery bypass graft Assessment/Plan: continue cardiac meds cardiology on board Code(s): I25.810 - ATHEROSCLEROSIS OF CABG W/O ANGINA PECTORIS (3) Cannabis dependence Code(s): F12.20 - CANNABIS DEPENDENCE, UNCOMPLICATED (4) Elevated troponin Assessment/Plan: trended down cardio note reviewed monitor Code(s): R74.8 - ABNORMAL LEVELS OF OTHER SERUM ENZYMES (5) Opioid dependence with withdrawal Code(s): F11.23 - OPIOID DEPENDENCE WITH WITHDRAWAL (6) Gastroesophageal reflux disease Code(s): K21.9 - GASTRO-ESOPHAGEAL REFLUX DISEASE WITHOUT ESOPHAGITIS (7) Hypercholesterolemia Assessment/Plan: on meds stable Code(s): E78.0 - PURE HYPERCHOLESTEROLEMIA * DO NOT USE * (9) Schizoaffective disorder Code(s): F25.9 - SCHIZOAFFECTIVE DISORDER, UNSPECIFIED (10) Bipolar disorder Code(s): F31.9 - BIPOLAR DISORDER, UNSPECIFIED (11) Cocaine dependence Code(s): F14.20 - COCAINE DEPENDENCE, UNCOMPLICATED (12) Nicotine dependence Code(s): F17.200 - NICOTINE DEPENDENCE, UNSPECIFIED, UNCOMPLICATED (13) HTN (hypertension) Code(s): I10 - ESSENTIAL (PRIMARY) HYPERTENSION (14) Alcohol abuse Code(s): F10.10 - ALCOHOL ABUSE, UNCOMPLICATED
[2018-10-13] MEDS: MIRTAZAPINE 30 MG TABLET (FP) PO SCH (21:48)
[2018-10-13] MEDS: risperiDONE 1 MG TABLET (FP) PO SCH (21:48)
[2018-10-14 08:10] VITALS: TEMP 98.1
--- NOTE | 2018-10-14 10:23 | PN ---
Progress Note (short form) - Note Progress Note: Overall appears better. No acute events overnight. Remains afebrile. Intake & Output 10/11/18 10/12/18 10/13/18 10/14/18 23:59 23:59 23:59 23:59 Intake Total 600 800 520 Output Total 2 Balance 598 800 520 Weight 174 lb 3 oz 179 lb 6 oz 173 lb 2 oz 174 lb 6 oz Last Vital Signs Temp Pulse Resp BP Pulse Ox 98.1 F 78 20 121/74 96 10/14/18 06:00 10/14/18 06:00 10/14/18 06:00 10/14/18 06:00 10/12/18 22:00 Active Medications Acetaminophen (Tylenol -) 650 mg PO Q6H PRN PRN Reason: FEVER Last Admin: 10/09/18 20:43 Dose: 650 mg Amlodipine Besylate (Norvasc -) 10 mg PO DAILY [facility] Last Admin: 10/13/18 09:27 Dose: 10 mg Aspirin (Asa -) 81 mg PO DAILY [facility] Last Admin: 10/13/18 09:27 Dose: 81 mg Benztropine Mesylate (Cogentin -) 1 mg PO BID [facility] Last Admin: 10/13/18 21:48 Dose: 1 mg Clonidine HCl (Catapres Tts Patch -) 0.3 mg TD Q7D@1000 [facility] Last Admin: 10/13/18 09:27 Dose: 0.3 mg Hydralazine HCl (Apresoline -) 10 mg PO Q8H PRN PRN Reason: HYPERTENSION Last Admin: 10/07/18 09:17 Dose: 10 mg Hydrochlorothiazide (Hctz -) 25 mg PO DAILY [facility] Last Admin: 10/13/18 09:27 Dose: 25 mg Levetiracetam (Keppra Oral Solution -) 500 mg PO BID [facility] Last Admin: 10/13/18 21:48 Dose: 500 mg Lisinopril (Prinivil) 20 mg PO DAILY [facility] Last Admin: 10/13/18 09:27 Dose: 20 mg Mirtazapine (Remeron -) 30 mg PO HS [facility] Last Admin: 10/13/18 21:48 Dose: 30 mg Risperidone (Risperdal -) 2 mg PO HS [facility] Last Admin: 10/13/18 21:48 Dose: 2 mg Gen: NAD Heart: RRR Lung: few scattered rhonchi Abd: soft, nontender Ext: no edema A/P Altered Mental Status improving Acute Hypercapneic Respiratory Failure improving Pneumonia likely Aspiration Acute COPD Exacerbation Acute Kidney Injury CAD s/p CABG +Troponins likely Demand Ischemia HTN Polysubstance Abuse Seizure Disorder - completed antibiotics - inhaled bronchodilators - O2 to keep Spo2 >90% - aspiration precautions - DVT prophylaxis - D/C planning Dr Katz
[2018-10-14] MEDS: HYDROCHLOROTHIAZIDE 25 MG TABLET (FP) PO SCH (10:26)
[2018-10-14] MEDS: amLODIPine BESYLATE 10 MG TABLET (FP) PO SCH (10:26)
[2018-10-14] MEDS: ASPIRIN 81 MG CHEWABLE TABLETS PO SCH (10:26)
[2018-10-14] MEDS: levETIRAcetam 500 MG/5 ML ORAL SOLUTION (UNIT-DOSE CUPS) PO SCH (10:27)
[2018-10-14] MEDS: LISINOPRIL 20 MG TABLET (FP) PO SCH (10:27)
[2018-10-14] MEDS: BENZTROPINE MESYLATE 1 MG TABLET (FP) PO SCH (10:29)
[2018-10-14 14:04] VITALS: BP 123/61; PULSE 82
== END 2018-10-14 14:50 | disposition other institution (70) | DRG 133 ==
LOC: JER 07:35 → JERBED 11:36 → JICU 20:42 → OBSVTOIN 21:51 → J6S 10-06 16:47
PROVIDERS: ADMIT Internal Medicine; ATTEND Internal Medicine
PROC: 5A1935Z Respiratory Ventilation, Less than 24 Consecutive Hours (ICD-10-PCS; principal; 2018-10-01)
PROC: 0BH17EZ Insertion of Endotracheal Airway into Trachea, Via Natural or Artificial Opening (ICD-10-PCS; 2018-10-01)
DX: J96.02 Acute respiratory failure with hypercapnia (principal); I25.10 Atherosclerotic heart disease of native coronary artery without angina pectoris; I10 Essential (primary) hypertension; G40.909 Epilepsy, unspecified, not intractable, without status epilepticus; F10.230 Alcohol dependence with withdrawal, uncomplicated; F12.20 Cannabis dependence, uncomplicated; E78.5 Hyperlipidemia, unspecified; K21.9 Gastro-esophageal reflux disease without esophagitis; F17.210 Nicotine dependence, cigarettes, uncomplicated; J44.1 Chronic obstructive pulmonary disease with (acute) exacerbation; I24.8 Other forms of acute ischemic heart disease; G93.41 Metabolic encephalopathy; J69.0 Pneumonitis due to inhalation of food and vomit; N17.9 Acute kidney failure, unspecified; Z95.1 Presence of aortocoronary bypass graft; R41.82 Altered mental status, unspecified; F11.23 Opioid dependence with withdrawal; F25.9 Schizoaffective disorder, unspecified; F31.9 Bipolar disorder, unspecified; F14.20 Cocaine dependence, uncomplicated
CPT/HCPCS: 36415; 36600; 70450-TC; 71045-TC-FY; 74018-TC-FY; 80053; 80307; 81003; 82140; 82550; 82553; 82803; 82962; 84484; 85025; 85027; 85610; 87040; 87086; 93005; 93010; 94002; 94640; 94660; 97116-GP; 97161-GP; 99285-25; G0378; J0131; J1644; J2794; J7030

== ENCOUNTER 2019-07-02 16:01 | Emergency (ER) | payer OTHER ==
[2019-07-02] MEDS ORDERED: ALBUTEROL SO4 2.5/IPRATROPIUM 0.5 INH SOL 3 ML VIAL.NEB. NEB ONE ×3 (16:09→18:11)
[2019-07-02 16:29] VITALS: TEMP 98.1; BMI 26.6
--- NOTE | 2019-07-02 16:49 | PDOC ---
History of Present Illness - General Chief Complaint: Shortness of Breath Stated Complaint: SOB/ABD PAIN LUQ Time Seen by Provider: 07/02/19 16:49 History Source: Patient Exam Limitations: No Limitations Past History - Past Medical History Allergies/Adverse Reactions: Allergies Allergy/AdvReac Type Severity Reaction Status Date / Time chlorpromazine HCl AdvReac Severe stiffness Verified 07/02/19 16:28 [From Thorazine] haloperidol [From Haldol] AdvReac Severe stiffness Verified 07/02/19 16:28 Home Medications: Ambulatory Orders Aspirin [ASA -] 81 mg PO DAILY 11/17/12 Lisinopril [Prinivil] 20 mg PO DAILY #30 tab 05/23/17 Amlodipine Besylate [Norvasc -] 15 mg PO DAILY 07/02/19 Atorvastatin Ca [Lipitor] 80 mg PO HS 07/02/19 Cyanocobalamin [Vitamin B12 -] 1,000 mcg PO DAILY 07/02/19 Famotidine 20 mg PO BID 07/02/19 Lisinopril 20 mg PO DAILY 07/02/19 Multivitamin [One-Daily Multi-Vitamin] 1 each PO DAILY 07/02/19 Pantoprazole Sodium 40 mg PO DAILY 07/02/19 Quetiapine Fumarate [Seroquel -] 50 mg PO BID 07/02/19 Anemia: No Asthma: No Cancer: No Cardiac Disorders: Yes (cad with stent in 1999,coronary by pass graft) CVA: No COPD: Yes (on albuterol inhaler) CHF: No Dementia: No Diabetes: No GI Disorders: Yes (GERD,no med) Disorders: No HTN: Yes (On meds.no compliance) Hypercholesterolemia: No Kidney Stones: No Liver Disease: No Seizures: No Thyroid Disease: No - Surgical History Abdominal Surgery: No Appendectomy: No Cardiac Surgery: Yes (Stent placement-1999,s/p coronary by pass surgery 2 vessels in 2012) Cholecystectomy: No Lung Surgery: No Neurologic Surgery: No Orthopedic Surgery: Yes (fx left knee at age of 17) - Reproductive History Testicular Surgery: No - Immunization History Immunization Up to Date: Yes - Psycho Social/Smoking Cessation Hx Smoking History: Unknown if ever smoked Have you smoked in the past 12 months: Yes Number of Cigarettes Smoked Daily: 40 Cigars Per Day: 0 'Breaking Loose' booklet given: 09/28/18 Hx Alcohol Use: No Drug/Substance Use Hx: No Substance Use Type: Alcohol, Cocaine, Marijuana, Opiates Hx Substance Use Treatment: Yes ([facility] 04/26/17 to 05/24/17 rehab) *Physical Exam - Vital Signs Last Vital Signs Temp Pulse Resp BP Pulse Ox 98.1 F 86 21 H 169/102 H 98 07/02/19 16:26 07/02/19 16:26 07/02/19 16:26 07/02/19 16:26 07/02/19 16:26
--- NOTE | 2019-07-02 17:28 | PDOC ---
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 Pearson) who presents to the ED because he ran out of ostomy bags and is having diarrhea. Per the patient, he has been having loose stools for the last 20 days. He had been prescribed lamotil which helped but he ran out 2 days ago. He also states that 4 days ago he ran out of his ostomy bags and has been washing the one he has and reusing it. He states the reason he has not seen his surgeon is because [facility] is too far from his house and he wants to use a pharmacy closer to home. Past History - Past Medical History Allergies/Adverse Reactions: Allergies Allergy/AdvReac Type Severity Reaction Status Date / Time chlorpromazine HCl AdvReac Severe stiffness Verified 07/02/19 16:28 [From Thorazine] haloperidol [From Haldol] AdvReac Severe stiffness Verified 07/02/19 16:28 Home Medications: Ambulatory Orders Aspirin [ASA -] 81 mg PO DAILY 11/17/12 Lisinopril [Prinivil] 20 mg PO DAILY #30 tab 05/23/17 Amlodipine Besylate [Norvasc -] 15 mg PO DAILY 07/02/19 Atorvastatin Ca [Lipitor] 80 mg PO HS 07/02/19 Cyanocobalamin [Vitamin B12 -] 1,000 mcg PO DAILY 07/02/19 Famotidine 20 mg PO BID 07/02/19 Lisinopril 20 mg PO DAILY 07/02/19 Multivitamin [One-Daily Multi-Vitamin] 1 each PO DAILY 07/02/19 Ostomy Kit [Assura 2Pc Irrigation Sleeve] 1 each MC DAILY 14 Days kit 07/02/19 Ostomy Kit [Irrigation Set] 1 each MC DAILY 14 Days kit 07/02/19 Ostomy Kit [Nutriport Balloon] 1 each MC DAILY #14 kit 07/02/19 Ostomy Supply [Active Life Closed-End Pouch] 1 each MC DAILY #14 each 07/02/19 Ostomy Supply [Adhesive Barrier] 1 each MC DAILY #14 each 07/02/19 Ostomy Supply [Allkare Protect Barrier Wipe] 1 each MC DAILY #14 each 07/02/19 Pantoprazole Sodium 40 mg PO DAILY 07/02/19 Quetiapine Fumarate [Seroquel -] 50 mg PO BID 07/02/19 Anemia: No Asthma: No Cancer: No Cardiac Disorders: Yes (cad with stent in 1999,coronary by pass graft) CVA: No COPD: Yes (on albuterol inhaler) CHF: No Dementia: No Diabetes: No GI Disorders: Yes (GERD,no med) Disorders: No HTN: Yes (On meds.no compliance) Hypercholesterolemia: No Kidney Stones: No Liver Disease: No Seizures: No Thyroid Disease: No - Surgical History Abdominal Surgery: No Appendectomy: No Cardiac Surgery: Yes (Stent placement-1999,s/p coronary by pass surgery 2 vessels in 2012) Cholecystectomy: No Lung Surgery: No Neurologic Surgery: No Orthopedic Surgery: Yes (fx left knee at age of 17) - Reproductive History Testicular Surgery: No - Immunization History Immunization Up to Date: Yes - Psycho Social/Smoking Cessation Hx Smoking History: Unknown if ever smoked Have you smoked in the past 12 months: Yes Number of Cigarettes Smoked Daily: 40 Cigars Per Day: 0 'Breaking Loose' booklet given: 09/28/18 Hx Alcohol Use: No Drug/Substance Use Hx: No Substance Use Type: Alcohol, Cocaine, Marijuana, Opiates Hx Substance Use Treatment: Yes ([facility] 04/26/17 to 05/24/17 rehab) *Physical Exam - Vital Signs Last Vital Signs Temp Pulse Resp BP Pulse Ox 98.1 F 86 21 H 169/102 H 98 07/02/19 16:26 07/02/19 16:26 07/02/19 16:26 07/02/19 16:26 07/02/19 16:40 Medical Decision Making - Medical Decision Making 07/02/19 19:03 Mr Read is a 58 yo M with a pmhx of HTN, CAD (s/p CABG), COPD, seizure disorder and 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 Pearson) who presents to the ED because he ran out of ostomy bags and is having diarrhea. Pt also with hx of asthma and some rare, scattered wheezes on physical exam with slight tachypnea. - Will order duonebs tx - Will attempt to refill prescription of ostomy bags and advise patient to follow up with his surgeon within 1 week for refills on his prescriptions. Discharge - Discharge Information Problems reviewed: Yes Clinical Impression/Diagnosis: Complication of ostomy Condition: Stable Disposition: HOME - Admission No - Additional Discharge Information Prescriptions: Ostomy Kit [Nutriport Balloon] 1 each MC DAILY #14 kit Ostomy Kit [Irrigation Set] 1 each MC DAILY 14 Days kit Ostomy Kit [Assura 2Pc Irrigation Sleeve] 1 each MC DAILY 14 Days kit Ostomy Supply [Active Life Closed-End Pouch] 1 each MC DAILY #14 each Ostomy Supply [Allkare Protect Barrier Wipe] 1 each MC DAILY #14 each Ostomy Supply [Adhesive Barrier] 1 each MC DAILY #14 each - Follow up/Referral - Patient Discharge Instructions Additional Instructions: You were in the hospital because you ran out of ostomy bags and needed a refill. You also had some wheezing and tachypnea. We changed your ostomy bag and recommend that you please follow up with your surgeon as soon as possible, within the next week, to get refills on your prescriptions. Please follow up with Dr. Pearson at [facility] within 1 week. - Post Discharge Activity
--- NOTE | 2019-07-02 19:09 | PDOC ---
Documentation entered by Geovanna Elizondo SCRIBE, acting as scribe for Ellie Crespo MD. Ellie Crespo MD: This documentation has been prepared by the Mikhail purcell Nirvannie, SCRIBE, under my direction and personally reviewed by me in its entirety. I confirm that the documentation accurately reflects all work, treatment, procedures, and medical decision making performed by me. Attending Attestation - Resident Resident Name: Alison Bragg - ED Attending Attestation I have performed the following: I have examined & evaluated the patient, The case was reviewed & discussed with the resident, I agree w/resident's findings & plan - HPI HPI: 07/02/19 19:03 54 yo male s/p prostate surgery , subsequent bowel resection and colostomy for prostate CA, in 02/2019 at [facility] here because states he feels sob, and needs ostomy supplies. pt states he was getting his supplies at [facility], but cant get there because too far, here because he ran out and has had to empty bag and wash it. also ran out of his inhaler which he uses for asthma. denies cp. no f/ c no abd pain. has been taking albuterol but ran out. also states he has been on immodium or lomotil for diarrhea, has since helped thicken his stool no dizziness. not lightheaded. no other complaints - Physicial Exam PE: 07/02/19 19:08 awake alert lungs with faint rhonchi, expiratory wheezing. heart rrr no mrg abd soft . ostomy bag intact. stool in bag. ext wwp no edema. abd soft nt nd - Medical Decision Making 07/02/19 19:14 pt given duoneb in ED. much improved. were able to switch out colostomy bag. sent E script to [facility]. pt to call [facility] in the am to have them send scrips to the new pharmacy.
[2019-07-02 19:36] VITALS: BP 157/92; PULSE 82
--- NOTE | 2019-07-06 01:07 | EKG ---
Test Reason : Blood Pressure : / mmHG Vent. Rate : 082 BPM Atrial Rate : 082 BPM P-R Int : 148 ms QRS Dur : 172 ms QT Int : 460 ms P-R-T Axes : 039 004 057 degrees QTc Int : 537 ms SINUS RHYTHM WITH PREMATURE SUPRAVENTRICULAR COMPLEXES RIGHT BUNDLE BRANCH BLOCK ABNORMAL ECG WHEN COMPARED WITH ECG OF 03-OCT-2018 09:09, PREMATURE SUPRAVENTRICULAR COMPLEXES ARE NOW PRESENT RIGHT BUNDLE BRANCH BLOCK IS NOW PRESENT Confirmed by KAM GUZMAN, LEIF ([id number]) on 07/06/2019 1:07:12 AM Referred By: Confirmed By:LEIF HUMPHREY MD
== END 2019-07-02 19:37 | disposition home or self-care (01) ==
LOC: JER 16:01
PROC: 3E0F7GC Introduction of Other Therapeutic Substance into Respiratory Tract, Via Natural or Artificial Opening (ICD-10-PCS; principal; 2019-07-02)
DX: Z44.8 Encounter for fitting and adjustment of other external prosthetic devices (principal); Z95.5 Presence of coronary angioplasty implant and graft; Z95.1 Presence of aortocoronary bypass graft; Z88.8 Allergy status to other drugs, medicaments and biological substances; K21.9 Gastro-esophageal reflux disease without esophagitis; J44.9 Chronic obstructive pulmonary disease, unspecified; I10 Essential (primary) hypertension
CPT/HCPCS: 93005; 93010; 99283-25

== ENCOUNTER 2019-07-17 20:08 | Emergency (ER) | payer OTHER ==
[2019-07-17 20:12] VITALS: TEMP 98.1; BMI 30.1
--- NOTE | 2019-07-17 20:59 | PDOC ---
History of Present Illness - General Chief Complaint: Pain Stated Complaint: PAIN Time Seen by Provider: 07/17/19 20:57 Past History - Past Medical History Allergies/Adverse Reactions: Allergies Allergy/AdvReac Type Severity Reaction Status Date / Time chlorpromazine HCl AdvReac Severe stiffness Verified 07/17/19 20:12 [From Thorazine] haloperidol [From Haldol] AdvReac Severe stiffness Verified 07/17/19 20:12 Home Medications: Ambulatory Orders Aspirin [ASA -] 81 mg PO DAILY 11/17/12 Lisinopril [Prinivil] 20 mg PO DAILY #30 tab 05/23/17 Amlodipine Besylate [Norvasc -] 15 mg PO DAILY 07/02/19 Atorvastatin Ca [Lipitor] 80 mg PO HS 07/02/19 Cyanocobalamin [Vitamin B12 -] 1,000 mcg PO DAILY 07/02/19 Famotidine 20 mg PO BID 07/02/19 Lisinopril 20 mg PO DAILY 07/02/19 Multivitamin [One-Daily Multi-Vitamin] 1 each PO DAILY 07/02/19 Ostomy Kit [Assura 2Pc Irrigation Sleeve] 1 each MC DAILY 14 Days kit 07/02/19 Ostomy Kit [Irrigation Set] 1 each MC DAILY 14 Days kit 07/02/19 Ostomy Kit [Nutriport Balloon] 1 each MC DAILY #14 kit 07/02/19 Ostomy Supply [Active Life Closed-End Pouch] 1 each MC DAILY #14 each 07/02/19 Ostomy Supply [Adhesive Barrier] 1 each MC DAILY #14 each 07/02/19 Ostomy Supply [Allkare Protect Barrier Wipe] 1 each MC DAILY #14 each 07/02/19 Ostomy Supply [Drainable Pouch with Flange] 1 each MC TID #120 each 07/02/19 Pantoprazole Sodium 40 mg PO DAILY 07/02/19 Quetiapine Fumarate [Seroquel -] 50 mg PO BID 07/02/19 Anemia: No Asthma: No Cancer: No Cardiac Disorders: Yes (cad with stent in 1999,coronary by pass graft) CVA: No COPD: Yes (on albuterol inhaler) CHF: No Dementia: No Diabetes: No GI Disorders: Yes (GERD,no med) Disorders: No HTN: Yes (On meds.no compliance) Hypercholesterolemia: No Kidney Stones: No Liver Disease: No Seizures: No Thyroid Disease: No - Surgical History Abdominal Surgery: No Appendectomy: No Cardiac Surgery: Yes (Stent placement-1999,s/p coronary by pass surgery 2 vessels in 2012) Cholecystectomy: No Lung Surgery: No Neurologic Surgery: No Orthopedic Surgery: Yes (fx left knee at age of 17) - Reproductive History Testicular Surgery: No - Immunization History Immunization Up to Date: Yes - Psycho Social/Smoking Cessation Hx Smoking History: Never smoked Have you smoked in the past 12 months: Yes Number of Cigarettes Smoked Daily: 40 Cigars Per Day: 0 'Breaking Loose' booklet given: 09/28/18 Hx Alcohol Use: No Drug/Substance Use Hx: No Substance Use Type: Alcohol, Cocaine, Marijuana, Opiates Hx Substance Use Treatment: Yes ([facility] 04/26/17 to 05/24/17 rehab) *Physical Exam - Vital Signs Last Vital Signs Temp Pulse Resp BP Pulse Ox 98.1 F 74 18 157/95 99 07/17/19 20:09 07/17/19 20:09 07/17/19 20:09 07/17/19 20:09 07/17/19 20:09 ED Treatment Course - LABORATORY CBC & Chemistry Diagram: 07/17/19 22:00 07/17/19 22:00 Medical Decision Making - Medical Decision Making 07/17/19 21:38 HPI: 58yo M hx HTN, CAD (s/p CABG and stent), COPD, smoking, seizure disorder, polysubstance abuse (alcohol, cocaine, heroin, marijuana), GERD, and prostate and colon CA (s/p ostomy in february [address] [facility] with Dr. Pearson) presents from home with multiple complaints, most concerning to him being painful L inguinal hernia x4 days. Pt c/o pain all over, including head, chest, suprapubic abdomen , and joints, unknown type, all started today but also chronic of unknown duration, thinks cold weather makes worse, unimproved by tylenol or neurontin or percocets, does not take ibuprofen due to stomach issues related to cancer. Endorses body aches and thinks has flu. Denies recent travel, sick contacts. C/ o shortness of breath, productive cough of "yellow stuff", and wheezing for weeks, states was here on 07/02/19 and was supposed to get a bunch of prescriptions and ostomy supplies sent to his pharmacy but they were never sent , so he hasn't had his inhaler. When asked if he has a pharmacy, he says no. Pt states he has had a L inguinal hernia for years but it popped out 4 days ago and has been painful since then, hasn't popped back in; denies skin colour changes or warmth. Also c/o urethral discharge of unknown duration with mild dysuria. Endorses sexual activity, denies hx STIs, denies genital rashes/lesions , would like to be tested for STIs. PCP - none ROS: Constitutional: Positive for chills, fatigue. Negative for fever, diaphoresis. HENT: Negative for sore throat, rhinorrhea, congestion. Eyes: Negative for visual disturbance. Respiratory: Positive for shortness of breath, cough, and wheezing. Cardiovascular: Positive for chest pain. Negative for palpitations, and leg swelling. Gastrointestinal: Positive for abdominal pain, diarrhea, nausea, vomiting. Negative for blood in stool, constipation. Genitourinary: Positive for urethral discharge, L inguinal hernia and pain, dysuria. Negative for flank pain, and hematuria. Musculoskeletal: Positive for myalgias, pain all over especially knees. Negative for back pain, and neck pain. Skin: Negative for rash. Neurological: Negative for light-headedness, dizziness, vertigo, syncope, weakness, numbness and headaches. Psychiatric/Behavioral: Negative for behavioral problems and confusion. PE: Gen: Alert, NAD, comfortable-appearing, malodorous, unkempt HEENT: PERRL, EOMI, MMM, NCAT. No conjunctival pallor. Sclera are non-icteric. CV: Regular rate and rhythm. No murmurs, rubs, or gallops. PULM: No resp distress. +diffuse slight expiratory wheezing b/l, no rales, or rhonchi. ABD: soft, ND, +suprapubic mild TTP, no rebound tenderness or guarding, no CVA tenderness, ostomy intact without surrounding erythema or bleeding or discharge , soft/liquid stool inside. : Normal penis except for purulent urethral discharge, no penile mass or tenderness or lesions. Normal R testicle without mass or tenderness or edema. Swollen and tender L testicle with nonreducible inguinal hernia. BACK: No TTP of c/t/l-spine. No step-offs or deformities. MSK: No bony deformities. 2+ pulses in all extremities. NEURO: AAOx3. PERRL. No gross CN deficits. Strength and sensation grossly intact throughout. EXTREMITIES: No cyanosis. No clubbing. No edema. No calf tenderness. PSYCH: Normal mood and thought pattern. Easily frustrated. SKIN: Warm and dry. Normal capillary refill. No rashes. No jaundice. Multiple healed surgical scars. MDM: 58yo M hx HTN, CAD (s/p CABG and stent), COPD, smoking, seizure disorder, polysubstance abuse (alcohol, cocaine, heroin, marijuana), GERD, and prostate and colon CA (s/p ostomy in february [address] [facility] with Dr. Pearson) presents from home with multiple complaints, including CP, SOB, myalgias, N/V, purulent urethral discharge, and painful nonreducible L inguinal hernia x4 days. Hemodynamically stable, afebrile, multiple surgical scars, diffuse slight expiratory wheezing, suprapubic mild abdominal TTP, nonreducible tender L inguinal hernia without overlying skin changes, purulent urethral discharge. CP/SOB ddx: ACS/MD, arrhythmia, COPD exacerbation, PNA, GERD, metabolic derangement, anemia. Consider PE due to malignancy but presentation not consistent with PE and other dx more likely - no D-dimer indicated at this time , but consider if w/u negative for other etiology of sx. Suprapubic pain, painful L testicular swelling, urethral discharge, diarrhea ddx : incarcerated vs strangulated hernia, epididymitis, STI, testicular torsion, UTI, GI infection, colitis, diverticulitis, gastroenteritis, Due to N/V and myalgias, also consider influenza. -Pain management: 4 morphine -CBC,CMP,Coags,T&S,Mg,Phos,Lipase,Cardiac profile,UA/UC,UDS,G/C/trich,HIV, Influenza -EKG -CXR -Scrotal US -CTAP w/IV and oral contrast -Pending w/u, consult Surgery? -Pending w/u, abx for purulent urethral discharge -Dispo: likely admit pending w/u and consult 07/17/19 22:57 Labs reviewed: of note, Trop 0.1, WBC 3.4 EKG reviewed: sinus rhythm with marked sinus arrhythmia, RBBB, 69bpm, normal axis, no e/o acute ischemia, no significant changes compared to 07/02/19 07/18/19 00:[address] Clarke. Discharge - Discharge Information Problems reviewed: Yes Clinical Impression/Diagnosis: Incarcerated inguinal hernia Disposition: TRANSFER ACUTE CARE/OTHER HOSP - Follow up/Referral - Patient Discharge Instructions - Post Discharge Activity
[2019-07-17] MEDS ORDERED: morphine CARPU-JECT 4 MG/1 ML DISP.SYRIN IVPUSH ONE (21:37)
[2019-07-17 22:17] LABS: BASO % 0.4 % (0-2.0); EOS % 2.3 % (0-4.5); HEMATOCRIT 35.5 % (35.4-49); HEMOGLOBIN 11.8 GM/dL (11.7-16.9); LYMPH % 18.4 % (8-40); MCH 27.9 pg (25.7-33.7); MCHC 33.3 g/dl (32.0-35.9); MEAN CELL VOLUME 83.8 fl (80-96); MEAN PLT VOLUME 7.8 fl (7.5-11.1); MONO % 4.3 % (3.8-10.2); NEUT % 74.6 % (42.8-82.8); PLATELET COUNT 200 K/MM3 (134-434); RBC 4.24 M/mm3 (4.00-5.60); RDW 16.6 % (11.9-15.9); WHITE BLOOD COUNT 3.4 K/mm3 (4.0-10.0)
[2019-07-17 22:46] LABS: ALBUMIN 3.2 g/dl (3.4-5.0); BILIRUBIN,TOTAL 0.2 mg/dL (0.2-1); BLOOD UREA NITROGEN 11.6 mg/dL (7-18); CALCIUM 8.6 mg/dL (8.5-10.1); CREATININE 1.1 mg/dL (0.55-1.3); POTASSIUM 3.9 mmol/L (3.5-5.1); TOT PROT 6.7 g/dl (6.4-8.2)
[2019-07-17 22:57] LABS: INR 1.05 (0.83-1.09); PROTHROMBIN TIME (PATIENT) 12.4 SEC (9.7-13.0)
--- NOTE | 2019-07-17 23:05 | PDOC ---
Documentation entered by Geovanna Elizondo SCRIBE, acting as scribe for Micki Walsh MD. Micki Walsh MD: This documentation has been prepared by the Mikhail purcell Nirvannie, SCRIBE, under my direction and personally reviewed by me in its entirety. I confirm that the documentation accurately reflects all work, treatment, procedures, and medical decision making performed by me. Attending Attestation - Resident Resident Name: Jessica Rebolledo - ED Attending Attestation I have performed the following: I have examined & evaluated the patient, The case was reviewed & discussed with the resident, I agree w/resident's findings & plan, Exceptions are as noted - HPI HPI: 07/17/19 23:11 [id number] with significant past medical history of hypertension, CAD (s/p CABG and cardiac stenting, COPD, seizure d/o, and (alcohol, cocaine, heroin, marijuana), GERD, and prostate and colon cancer (s/p ostomy in february 2019 at [facility] with Dr. Pearson) who presents to the ED with 4 days of left inguinal hernia pain with associated diffuse myalgias. As per patient, he has been experiencing pain to his hernia and the suprapubic region for the past 4 days. He endorses myalgias and believes he may have the flu for which he has taken Tylenol, Percocet, and Neuontin, without relief. He notes associated penile discharge and mild dysuria. He endorses mild chest pain and headache while in the ED. Patient notes a productive cough with yellow sputum and shortness of breath for the past month which he was worked up for in the ED but, notes he did not nut picker from the pharmacy. Denies genital rashes, lesions, or bloody discharge. Denies fever, chills, palpitation, dizziness, weakness, N, V, D, leg swelling, No sick contacts or travel. No new changes in medications. Allergies: Chlorpromazine HCl, Haloperidol Past Medical History: hypertension, CAD (s/p CABG and cardiac stenting, COPD, seizure d/o, and (alcohol, cocaine, heroin, marijuana), GERD, and prostate and colon CA Social history: Lives with family. No tobacco, ETOH or drug use. Surgical history: S/p ostomy, s/p cardiac stenting and CABG. Meds: as documented in EMR PMD: None reported. - Physicial Exam PE: 07/17/19 23:12 General: Well appearing, awake and alert, NAD. HEENT: NCAT, PERRL, EOMI, clear conjunctiva, anicteric, moist mucous membranes , clear oropharynx, no oral lesions.. Neck: neck supple, FROM Resp: CTAB, normal and even respirations, no respiratory distress CVS: RRR, no murmurs, 2+ peripheral pulses throughout, no peripheral edema Abdomen: + ostomy in place. soft, NTND, no rebound or guarding. No CVAT. Male : +Pus from the urethra. no lesions, normal testicular lie, no scrotal or testicular edema or tenderness. +cremaster reflex bilaterally. +Bulging, nonreducible left inguinal hernia without skin discoloration. [place] stoma. Back: nontender, normal inspection and ROM MSK: no edema, REDDY x4, ROM intact. No clubbing or cyanosis. normal bulk and tone. Extremities: no calf tenderness Neuro: alert, oriented appropriately; no focal neurologic deficits Skin: warm and well perfused, cap refill <2 sec, normal color - Medical Decision Making 07/17/19 23:33 Vital Signs Temp Pulse Resp BP Pulse Ox 98.1 F 74 18 157/95 99 07/17/19 20:09 07/17/19 20:09 07/17/19 20:09 07/17/19 20:09 07/17/19 20:09 ddx epididymitis, orchitis, STI, HIV, incarcerated/strangulated inguinal hernia , obstruction, perf, ACS, arrhythmia, viral syndrome. Laboratory results with mild leukopenia 3.4K has been similarly low previously. Coags are normal including electrolytes, lactic. Troponin is 0.10 which is lower than his previous peaks. HIV preliminary screen is negative. Sending off urine studies to test for STD/infections. m CT a/p to eval inguinal hernia/obstruction Scrotal sono to eval for infection, epididymitis vs orchitis, STD testing sent pending GC/chlmydia/trich 07/18/19 01:57 CT with moderate left inguinal hernia, nonobstructed small bowel; symptomatic left hydrocele; no e/o torsion. cyst. no surgery available over weekend. transfer for surgical evaluation for symptomatic left inguinal hernia, irreducible. Heart Score/ECG Review #1 ECG reviewed & interpreted by me at: 23:00 General ECG Interpretation: Sinus Rhythm, Normal Rate, Normal Intervals 07/17/19 23:03 EKG normal sinus rhythm , 69 bpm, right bundle branch block with appropriate discordance in lead V1 and V2, sinus arrhythmia, Nonspecific T wave abnormalities
[2019-07-17 23:43] LABS: MAGNESIUM 1.8 mg/dL (1.8-2.4); N-TERMINAL BNP 218.2 pg/ml (5-125); PHOSPHOROUS 3.2 mg/dL (2.5-4.9)
--- NOTE | 2019-07-18 00:05 | PDOC ---
*Physical Exam - Vital Signs Last Vital Signs Temp Pulse Resp BP Pulse Ox 98.1 F 74 18 157/95 99 07/17/19 20:09 07/17/19 20:09 07/17/19 20:09 07/17/19 20:09 07/17/19 20:09 ED Treatment Course - LABORATORY CBC & Chemistry Diagram: 07/17/19 22:00 07/17/19 22:00 - ADDITIONAL ORDERS Additional order review: Laboratory Results 07/17/19 07/17/19 07/17/19 22:00 22:00 22:00 PT with INR 12.40 INR 1.05 PTT (Actin FS) Sodium Potassium Chloride Carbon Dioxide Anion Gap BUN Creatinine Est GFR (CKD-EPI)AfAm Est GFR (CKD-EPI)NonAf Random Glucose Lactic Acid Calcium Phosphorus Cancelled Magnesium Total Bilirubin AST ALT Alkaline Phosphatase Creatine Kinase Troponin I B-Natriuretic Peptide Total Protein Albumin Lipase Blood Type O POSITIVE Antibody Screen Negative 07/17/19 07/17/19 07/17/19 22:00 22:00 22:00 PT with INR INR PTT (Actin FS) Sodium Potassium Chloride Carbon Dioxide Anion Gap BUN Creatinine Est GFR (CKD-EPI)AfAm Est GFR (CKD-EPI)NonAf Random Glucose Lactic Acid Calcium Phosphorus Magnesium Cancelled Total Bilirubin AST ALT Alkaline Phosphatase Creatine Kinase Troponin I B-Natriuretic Peptide Cancelled Total Protein Albumin Lipase 94 Blood Type Antibody Screen 07/17/19 07/17/19 07/17/19 22:00 22:00 22:00 PT with INR INR PTT (Actin FS) Sodium 139 Potassium 3.9 Chloride 107 Carbon Dioxide 26 Anion Gap 5 L BUN 11.6 Creatinine 1.1 Est GFR (CKD-EPI)AfAm 85.31 Est GFR (CKD-EPI)NonAf 73.61 Random Glucose 99 Lactic Acid 1.2 Calcium 8.6 Phosphorus 3.2 Magnesium 1.8 Total Bilirubin 0.2 AST 13 L ALT 13 Alkaline Phosphatase 102 Creatine Kinase 103 Troponin I 0.10 H B-Natriuretic Peptide 218.2 H Total Protein 6.7 Albumin 3.2 L Lipase Blood Type Antibody Screen 07/17/19 22:00 PT with INR INR PTT (Actin FS) 31.4 Sodium Potassium Chloride Carbon Dioxide Anion Gap BUN Creatinine Est GFR (CKD-EPI)AfAm Est GFR (CKD-EPI)NonAf Random Glucose Lactic Acid Calcium Phosphorus Magnesium Total Bilirubin AST ALT Alkaline Phosphatase Creatine Kinase Troponin I B-Natriuretic Peptide Total Protein Albumin Lipase Blood Type Antibody Screen 07/17/19 22:00 RBC 4.24 MCV 83.8 MCHC 33.3 RDW 16.6 H MPV 7.8 Neutrophils % 74.6 Lymphocytes % 18.4 D Monocytes % 4.3 Eosinophils % 2.3 Basophils % 0.4 D - Medications Given in the ED: ED Medications Discontinued Medications Generic Name Dose Route Start Last Admin Trade Name Kosta PRN Reason Stop Dose Admin Morphine Sulfate 4 mg 07/17/19 21:37 07/17/19 22:05 Morphine Injection - IVPUSH 07/17/19 21:38 4 mg ONCE ONE Administration Medical Decision Making - Medical Decision Making 07/18/19 00:00 sign out received by Dr. Rebolledo 58yo M hx HTN, CAD (s/p CABG and stent), COPD, smoking, seizure disorder, polysubstance abuse (alcohol, cocaine, heroin, marijuana), GERD, and prostate and colon CA (s/p ostomy in february 2019 at [facility] with Dr. Pearson) pain everywhere diffuse wheezes hernia inguinal purulent urethral dc 0.1 trop lower than before 3.4 WBC to do: [] 1am trop [x] HIV [] UA/UDS/Gn/Ch [] Flu [x] reads CT a/p, scrotal US [] CXR [] abx? epididmitis vs urethritis ? surgery dispo tele-obs HIV rapid neg empiric abx for Gn/Ch CT shows L inguinal hernia w/ nonobstructed small bowel and edema within US shows Pt accepted to [facility] under Dr. Gaffney, General Surgeon Discharge - Discharge Information Problems reviewed: Yes Clinical Impression/Diagnosis: Incarcerated inguinal hernia Disposition: TRANSFER ACUTE CARE/OTHER HOSP - Follow up/Referral - Patient Discharge Instructions - Post Discharge Activity
[2019-07-18] MEDS ORDERED: AZITHROMYCIN 500 MG TABLET PO ONE (02:16)
[2019-07-18] MEDS ORDERED: cefTRIAXone SODIUM 1 GM VIAL ONE (02:37)
[2019-07-18] MEDS ORDERED: AZITHROMYCIN 250 MG TABLET ONE (02:37)
[2019-07-18] MEDS ORDERED: LIDOCAINE HCL 1%, 10 MG/ML (20ML VIAL) ONE (02:40)
[2019-07-18 03:19] VITALS: BP 148/83; PULSE 63
--- NOTE | 2019-07-18 14:10 | EKG ---
Test Reason : Blood Pressure : / mmHG Vent. Rate : 069 BPM Atrial Rate : 069 BPM P-R Int : 154 ms QRS Dur : 170 ms QT Int : 456 ms P-R-T Axes : 054 003 049 degrees QTc Int : 488 ms SINUS RHYTHM WITH MARKED SINUS ARRHYTHMIA RIGHT BUNDLE BRANCH BLOCK MINIMAL VOLTAGE CRITERIA FOR LVH, MAY BE NORMAL VARIANT ABNORMAL ECG WHEN COMPARED WITH ECG OF 02-JUL-2019 17:03, COMPARED TO EKG NO SIGNIFICANT CHANGE IS FOUND Confirmed by CAMILLE JARQUIN MD ([id number]) on 07/18/2019 2:09:38 PM Referred By: Confirmed By:CAMILLE JARQUIN MD
== END 2019-07-18 03:40 | disposition short-term general hospital (02) ==
LOC: JER 20:08 → JERFT 20:08 → JER 07-18 03:40
PROC: 3E02329 Introduction of Other Anti-infective into Muscle, Percutaneous Approach (ICD-10-PCS; principal; 2019-07-17)
PROC: 3E033NZ Introduction of Analgesics, Hypnotics, Sedatives into Peripheral Vein, Percutaneous Approach (ICD-10-PCS; 2019-07-17)
DX: K40.30 Unilateral inguinal hernia, with obstruction, without gangrene, not specified as recurrent (principal); I25.10 Atherosclerotic heart disease of native coronary artery without angina pectoris; I10 Essential (primary) hypertension; Z95.1 Presence of aortocoronary bypass graft; Z95.5 Presence of coronary angioplasty implant and graft; J44.9 Chronic obstructive pulmonary disease, unspecified; K21.9 Gastro-esophageal reflux disease without esophagitis; G40.909 Epilepsy, unspecified, not intractable, without status epilepticus; F17.210 Nicotine dependence, cigarettes, uncomplicated; F19.10 Other psychoactive substance abuse, uncomplicated; F11.10 Opioid abuse, uncomplicated; F14.10 Cocaine abuse, uncomplicated; F12.10 Cannabis abuse, uncomplicated; Z85.038 Personal history of other malignant neoplasm of large intestine; Z85.46 Personal history of malignant neoplasm of prostate; Z93.3 Colostomy status; R06.02 Shortness of breath; R36.9 Urethral discharge, unspecified
CPT/HCPCS: 36415; 71045-TC-FY; 74177-TC; 76870-TC; 80053; 82550; 83605; 83690; 83735; 83880; 84100; 84484; 85025; 85610; 85730; 86850; 86900; 86901; 87389; 93005; 93010; 99283-25

== ENCOUNTER 2020-03-30 15:05 | Emergency (ER) | payer OTHER ==
[2020-03-30 15:57] VITALS: TEMP 98.5; BMI 29.1
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
[2020-03-30 19:37] VITALS: BP 146/71; PULSE 77
[2020-03-30] MEDS ORDERED: ACETAMINOPHEN 325 MG TABLET (FP) PO ONE (21:10)
[2020-03-30] MEDS ORDERED: ACETAMINOPHEN 325 MG TABLET (FP) ONE (21:11)
--- NOTE | 2020-04-05 11:54 | EKG ---
Test Reason : Blood Pressure : / mmHG Vent. Rate : 075 BPM Atrial Rate : 075 BPM P-R Int : 144 ms QRS Dur : 172 ms QT Int : 488 ms P-R-T Axes : 044 -16 043 degrees QTc Int : 544 ms NORMAL SINUS RHYTHM WITH SINUS ARRHYTHMIA POSSIBLE LEFT ATRIAL ENLARGEMENT RIGHT BUNDLE BRANCH BLOCK LEFT VENTRICULAR HYPERTROPHY ABNORMAL ECG Confirmed by MD TONY, JF ([id number]) on 04/05/2020 11:54:01 AM Referred By: Confirmed By:JF JIMENEZ MD
== END 2020-03-30 22:52 | disposition home or self-care (01) ==
LOC: JER 15:05
DX: M79.605 Pain in left leg (principal)
CPT/HCPCS: 70450-TC; 71045-TC-FY; 72125-TC; 73523-TC-FY; 73562-TC-LT-FY; 73610-TC-LT-FY; 73630-TC-LT; 93005; 93010; 99285-25

== ENCOUNTER 2020-12-05 14:09 | Emergency (ER) | payer OTHER ==
[2020-12-05 14:19] VITALS: BP 178/96; PULSE 76; TEMP 98.3; BMI 32.8
[2020-12-05] MEDS ORDERED: KETOROLAC TROMETHAMINE 30 MG/1 ML VIAL IM ONE (14:54)
[2020-12-05] MEDS ORDERED: KETOROLAC TROMETHAMINE 30 MG/1 ML VIAL ONE (15:08)
== END 2020-12-05 15:45 | disposition home or self-care (01) ==
LOC: JERFT 14:09
PROC: 3E0233Z Introduction of Anti-inflammatory into Muscle, Percutaneous Approach (ICD-10-PCS; principal; 2020-12-05)
DX: M25.562 Pain in left knee (principal); M25.462 Effusion, left knee
CPT/HCPCS: 73562-TC-LT-FY; 99284-25